=== PATIENT | female | born 1945 | race Caucasian/White ===

== ENCOUNTER → 2018-05-31 13:38 | Outpatient (CLI) | payer MEDICARE, SELFPAY ==
--- NOTE | 2018-05-31 | DI.MG.S_ITS ---
BILATERAL DIGITAL SCREENING MAMMOGRAM 3D/2D WITH CAD: 05/31/2018 CLINICAL: Routine screening. Comparison is made to exams dated: 06/09/2016 mammogram - [facility], 01/29/2014 mammogram, and 10/30/2012 mammogram - [facility]. The tissue of both breasts is heterogeneously dense. This may lower the sensitivity of mammography. Current study was also evaluated with a Computer Aided Detection (CAD) system. No significant masses, calcifications, or other findings are seen in either breast. There has been no significant interval change. IMPRESSION: NEGATIVE There is no mammographic evidence of malignancy. A 1 year screening mammogram is recommended. This exam was interpreted at Station ID: [id number]. NOTE: For mammograms, a report in lay terms will be sent to the patient. Approximately 15% of breast malignancies will not be visualized mammographically. In the management of a palpable breast mass, a negative mammogram must not discourage biopsy of a clinically suspicious lesion. Electronically Signed By: Breonna palmer/kaylyn:05/31/2018 15:06:32 letter sent: Normal Exam ACR BI-RADS Category 1: Negative [id number]
[2018-05-31 15:59] LABS: Vitamin B12 745 pg/mL (239-931)
[2018-05-31 16:10] LABS: Vitamin D 25 Hydroxy (D3) 37.1 ng/mL (30.0-100.0)
== END ==
PROVIDERS: Psychiatry & Neurology Psychiatry; PCP Nurse Practitioner; Visit Provider Nurse Practitioner
DX: Z12.31 Encounter for screening mammogram for malignant neoplasm of breast (principal); F41.1 Generalized anxiety disorder
CPT/HCPCS: 36415; 77063; 77067; 82306; 82607

== ENCOUNTER → 2019-06-27 11:37 | Outpatient (CLI) | payer MEDICARE, SELFPAY ==
--- NOTE | 2019-06-27 | DI.MG.S_ITS ---
BILATERAL DIGITAL SCREENING MAMMOGRAM 3D/2D WITH CAD: 06/27/2019 CLINICAL: Routine screening. Comparison is made to exams dated: 05/31/2018 mammogram, 06/09/2016 mammogram - [facility], 01/29/2014 mammogram, and 10/30/2012 mammogram - [facility]. The tissue of both breasts is heterogeneously dense. This may lower the sensitivity of mammography. Current study was also evaluated with a Computer Aided Detection (CAD) system. No significant masses, calcifications, or other findings are seen in either breast. There has been no significant interval change. IMPRESSION: NEGATIVE There is no mammographic evidence of malignancy. A 1 year screening mammogram is recommended. This exam was interpreted at Station ID: [id number]. NOTE: For mammograms, a report in lay terms will be sent to the patient. Approximately 15% of breast malignancies will not be visualized mammographically. In the management of a palpable breast mass, a negative mammogram must not discourage biopsy of a clinically suspicious lesion. Electronically Signed By: Tye marquez/kaylyn:06/27/2019 12:25:46 letter sent: Normal Exam ACR BI-RADS Category 1: Negative 3341F
== END ==
PROVIDERS: PCP Nurse Practitioner; Visit Provider Nurse Practitioner
DX: Z12.31 Encounter for screening mammogram for malignant neoplasm of breast (principal)
CPT/HCPCS: 77063; 77067

== ENCOUNTER → 2019-07-21 10:34 | Outpatient (CLI) | payer MEDICARE, SELFPAY ==
[2019-07-21 12:26] LABS: Add Manual Diff / Slide Review NO; Basophils Absolute Auto 0 /uL (0-100); Basophils Percent Auto 0.4 % (0-2); Eosinophils Absolute Auto 0 /uL (0-450); Hematocrit 41.3 % (36-46); Hemoglobin 13.8 g/dL (12.0-16.0); Lymphocytes Absolute Auto 1100 /uL (1100-4500); Lymphocytes Percent Auto 39.8 % (25-40); Mean Corpuscular HGB Conc 33.4 % (30-36); Mean Corpuscular Hemoglobin 30.2 PG (26-34); Mean Corpuscular Volume 90.4 fL (80-100); Monocytes Absolute Auto 300 /uL (0-900); Monocytes Percent Auto 9.9 % (3-14); Neutrophils Absolute Auto 1400 /uL (1500-7000); Neutrophils Percent Auto 48.9 % (50-75); Platelet Count 235 X10^3/uL (150-400); Red Blood Cell Count 4.57 X10^6/uL (4.0-5.2); Red Cell Distribution Width 12.9 % (11.6-14.8); White Blood Cell Count 2.9 X10^3/uL (4.5-11.0)
[2019-07-21 12:37] LABS: Alanine Aminotransferase 17 IU/L (9-52); Albumin 4.5 g/dL (3.5-5.0); Albumin Globulin Ratio 1.3 (1.0-2.8); Alkaline Phosphatase 68 U/L (38-126); Aspartate Aminotransferase 38 IU/L (14-36); Bilirubin Total 0.9 mg/dL (0.2-1.3); Bilirubin Unconjugated 0.8 mg/dL (0.0-1.1); Blood Urea Nitrogen 12 mg/dL (7-17); Calcium 9.5 mg/dL (8.4-10.2); Carbon Dioxide 32 mmol/L (22-32); Chloride 101 mmol/L (98-107); Cholesterol 216 mg/dL (140-199); Estimated Glomerular Filt Rate > 60.0 mL/min (>60); Globulin 3.6 g/dL (1.7-4.1); Glucose 82 mg/dL (80-110); HDL Cholesterol 74 mg/dL (40-60); HEMOLYSIS < 15 (0-50); LDL Cholesterol Calculated 132 mg/dL (<100); Sodium 141 mmol/L (137-145); Total Protein 8.1 g/dL (6.3-8.2); Triglycerides 49 mg/dL (35-150)
[2019-07-21 14:09] LABS: Thyroid Stimulating Hormone 2.64 uIU/mL (0.47-4.68)
[2019-07-21 15:41] LABS: Vitamin D 25 Hydroxy (D3) 49.9 ng/mL (30.0-100.0)
[2019-07-21 16:34] LABS: Hep C Virus Ab w/Reflex Quant NEGATIVE s/c (NEGATIVE)
== END ==
PROVIDERS: Family Provider Nurse Practitioner; PCP Nurse Practitioner; Visit Provider Psychiatry & Neurology Psychiatry
DX: Z11.59 Encounter for screening for other viral diseases (principal); F32.9 Major depressive disorder, single episode, unspecified; F41.1 Generalized anxiety disorder; F90.0 Attention-deficit hyperactivity disorder, predominantly inattentive type
CPT/HCPCS: 80053; 80061; 80076; 82306; 84439; 84443; 85025; 86803

== ENCOUNTER 2019-07-31 16:45 | Outpatient (RCR) | payer MEDICARE, SELFPAY ==
--- NOTE | 2019-07-22 17:22 | PT.OIE ---
Current Diagnoses Pain in thoracic spine (07/22/19) Dorsalgia, unspecified (07/22/19) Other abnormalities of gait and mobility (07/22/19) Weakness (07/22/19) Other reduced mobility (07/22/19) Past Medical History (Last Updated 07/16/19 @ 08:59 by WALTER Mckoen) Acute respiratory failure with hypoxia (Acute) Cataract (Acute) Chronic headaches (Acute) Empyema (Acute) Exudative pleural effusion (Acute) Family history of psychiatric disorder (Acute) Fecal incontinence (Acute) Hemorrhoids (Acute) History of neutropenia (Acute) History of osteomyelitis as a child (Acute) History of osteopenia (Acute) History of sepsis (Acute) Hypothyroidism (Acute) Intermittent low back pain (Acute) Thyroid nodule (Acute) Tinnitus (Acute) Urinary incontinence (Acute) Past Surgical History (Last Updated 07/16/19 @ 08:59 by WALTER Mckeon) History of hemorrhoidectomy (Acute) Visit Care Team Role Provider Type WALTER Mckeon Attending Provider Advanced Supervising Floorperson Family Provider Primary Care Provider Specialty: [facility] Address: [address] [place] [address] Email: [email or web address] Physical Therapy Initial Evaluation PT-OP-A Visit Information Start: 07/22/19 16:48 Freq: Status: Active Protocol: Document 07/22/19 14:30 DCW (Rec: 07/22/19 17:04 DC [id number]) Out-Patient Physical Therapy Visit Information Visit Information Visit Type Initial Evaluation Visit Start Time 14:30 Visit Stop Time 15:15 Total Visit Minutes 45 Visit Number 1 Number of STORE GROCERY MERCHANDISER Visits 0 Evaluation Information Evaluation Date 07/22/19 PT-OP-B Current Condition Start: 07/22/19 16:48 Freq: Status: Active Protocol: Document 07/22/19 14:30 DCW (Rec: 07/22/19 17:04 DCW [id number]) Current Condition History of Current Condition Onset Date 2 years Current Complaints generalized weakness, back pain, fear of falling History of Current Condition Pt is a 73 year old female presenting with a tangential two year history of back pain, weakness, and imbalance/fear of falling. Pt was hospitalized two years ago for a 10 day stay with a diagnosis of sepsis secondary to exudative pleural effusions due to empyema strep intermidium/angiosus. Pt feels like she has had weakness and imbalance ever since. Pt also has a history of low back pain, and suffers from Seasonal Affective Disorder, due to both the changes in weather during this time of year, and a traumatic personal history, with the loss of her parents and her in August. Pt reports her pain and imbalance makes it difficult to take her dogs for walks on the beach, mainly due to a fear of falling. Pt also struggles to lift 15 pound bags of tricia litter. 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 PT-OP-C Subjective Start: 07/22/19 16:48 Freq: Status: Active Protocol: Document 07/22/19 14:30 DCW (Rec: 07/22/19 17:04 DCW [id number]) Patient Questionnaires Oswestry Low Back Index Oswestry Score 24% Oswestry Impairment 20 to 39% Impaired (Score 20- 39) OP-PT Pain Assessment Pain Assessment Grid Paper Pain Assessment Grid Completed Yes Location Right Lower Back Intensity 4 Scale Used Numeric (1 - 10) PT-OP-D Balance Start: 07/22/19 16:48 Freq: Status: Active Protocol: Document 07/22/19 14:30 DCW (Rec: 07/22/19 17:04 DCW [id number]) OP-PT Balance Assessment Sitting Balance Static Sitting Balance Ability Normal Dynamic Sitting Balance Ability Normal Standing Balance Static Standing Balance Ability Normal Dynamic Standing Balance Ability Good Ochoa Fall Scale Copyright Permission PT-OP-E Functional Tests Start: 07/22/19 17:04 Freq: Status: Active Protocol: Document 07/22/19 14:30 DCW (Rec: 07/22/19 17:22 DCW [id number]) Functional Tests Dynamic Gait Index (DGI) Score 21/24 DGI Impairment Rating 1 to <20% Impaired (Score 20- 23) PT-OP-F Manual Assessment Start: 07/22/19 16:48 Freq: Status: Active Protocol: Document 07/22/19 14:30 DCW (Rec: 07/22/19 17:22 DCW [id number]) Manual Assessments Soft Tissue Assessment Soft Tissue Mobility Assessment Severe tone along right paraspinals and QL, Tenderness level 1/4: Complaint of pain Joint Mobility Assessment Joint Mobility Assessment T/L vertebrae mobility WNL PT-OP-K Range of Motion Start: 07/22/19 16:48 Freq: Status: Active Protocol: Document 07/22/19 14:30 DCW (Rec: 07/22/19 17:22 [facility] [id number]) Lumbar Spine Range of Motion Lumbar Spine Active Testing Position Standing Comments ROM WNL PT-OP-M Strength Start: 07/22/19 16:48 Freq: Status: Active Protocol: Document 07/22/19 14:30 DCW (Rec: 07/22/19 17:22 DC [id number]) Trunk Strength Trunk Manual Muscle Testing Core Stabilization Good core contraction initially, has some difficulty maintaining contraction during SLR; MMT 4/5 Hip Strength Hip Manual Muscle Testing Right Flexion (L2) 5 Normal Abduction 5 Normal Adduction 5 Normal External Rotation 5 Normal Internal Rotation 5 Normal Left Flexion (L2) 5 Normal Abduction 5 Normal Adduction 5 Normal External Rotation 5 Normal Internal Rotation 5 Normal PT-OP-Q Treatments Start: 07/22/19 16:48 Freq: Status: Active Protocol: Document 07/22/19 14:30 DCW (Rec: 07/22/19 17:22 DC [id number]) Therapeutic Exercises Supine Exercises PPT /c SLR Supine Exercise Name PPT /c TrA contraction - Alternating SLR PPT /c Marching Supine Exercise Name PPT /c TrA contraction - Marching PPT /c TrA Supine Exercise Name PPT /c TrA contraction PT-OP-T Assessment and Plan Start: 07/22/19 16:48 Freq: Status: Active Protocol: Document 07/22/19 14:30 DCW (Rec: 07/22/19 17:22 [facility] [id number]) Physical Therapy Assessment Rehab Potential Rehabilitation Potential Good Evaluation Complexity Number of Personal Factors/Comorbidities 3 or More Number of Body Systems Impaired 3 Clinical Presentation at Evaluation Evolving Impairments Impairments Activity Tolerance,Pain,Soft Tissue Mobility,Strength,Tone Other Concerns Fall Risk No, per DGI Barriers to Rehabilitation ADD, Anxiety, Depression/SAD, Hard of Hearing, Incontinence Goals Three Impairment Pt unable to lift 15# bag of cat litter due to increased back pain Snf Goal (LTG) Pt to demonstrate ability to lift 15# bag with proper body mechanics and no complaints of increased back pain LTG Duration 09/21/19 Two Impairment Pt unable to walk dogs on beach without instability and fear of falling Cast Iron Dipper Goal (LTG) Pt to report improved confidence walking dogs on beach with no increased fear of falling by improving dynamic stability. LTG Duration 09/21/19 One Impairment Pt does not have an appropriate home exercise program Short Term Goal (STG) Pt to be independent and compliant with an appropriate HEP STG Duration 08/21/19 Assessment Summary Assessment Pt presents with signs and symptoms consistent with mild generalized weakness and deconditioning. Pt's biggest limiting factors appear to be a fear of falling, which she admits prevents her from doing a lot of things she would typically be doing to improve her strength and stability. Per her DGI, her Dynamic balance is certainly WNL (), and she has no notable LE strength or mobility deficiencies. Pt does have increased tone along her paraspinals, R>L, and struggles maintaining a proper TrA contraction for an extended time, which may be the cause of her lifting difficulty/pain. Pt's therapy may be limited by her depression, anxiety, and ADD, as well as her history of incontinence. Pt should benefit from skilled therapy focusing on core strengthening , balance training to improve confidence, and STM to decrease lumbar musculature tone. Physical Therapy Plan Frequency and Duration Frequency of Treatment 2x/Week Duration of Treatment 10 weeks Plan of Care Start Date 07/22/19 Plan of Care End Date 09/30/19 Therapeutic Interventions Therapeutic Interventions Aquatic Therapy,Balance Training,Manual Therapy, Patient/Caregiver Education, Self-Care/Home Management,Soft Tissue Mobilization, Therapeutic Activities, Therapeutic Exercises Modalities Cold Pack/Ice Massage,Electric Stimulation,Hot Packs Next Visit Focus/Plan Next Note Type Treatment Note Next Visit Plan Lumbar STM, core strengthening , balance training
--- NOTE | 2019-07-25 15:17 | PT.OTN ---
Current Diagnoses Pain in thoracic spine (07/25/19) Dorsalgia, unspecified (07/25/19) Other abnormalities of gait and mobility (07/25/19) Weakness (07/25/19) Other reduced mobility (07/25/19) Physical Therapy Treatment Note PT-OP-A Visit Information Start: 07/22/19 16:48 Freq: Status: Active Protocol: Document 07/25/19 14:40 DCW (Rec: 07/25/19 15:15 DCW [id number]) Out-Patient Physical Therapy Visit Information Visit Information Visit Type Treatment Note Visit Note Arrived 10 minutes late Visit Start Time 14:40 Visit Stop Time 15:15 Total Visit Minutes 35 Visit Number 2 Number of FOLDER STITCHER OPERATOR Visits 0 Evaluation Information Evaluation Date 07/22/19 PT-OP-B Current Condition Start: 07/22/19 16:48 Freq: Status: Active Protocol: Document 07/22/19 14:30 DCW (Rec: 07/22/19 17:04 DCW [id number]) Current Condition History of Current Condition Onset Date 2 years Current Complaints generalized weakness, back pain, fear of falling History of Current Condition Pt is a 73 year old female presenting with a tangential two year history of back pain, weakness, and imbalance/fear of falling. Pt was hospitalized two years ago for a 10 day stay with a diagnosis of sepsis secondary to exudative pleural effusions due to empyema strep intermidium/angiosus. Pt feels like she has had weakness and imbalance ever since. Pt also has a history of low back pain, and suffers from Seasonal Affective Disorder, due to both the changes in weather during this time of year, and a traumatic personal history, with the loss of her parents and her in August. Pt reports her pain and imbalance makes it difficult to take her dogs for walks on the beach, mainly due to a fear of falling. Pt also struggles to lift 15 pound bags of tricia litter. 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 PT-OP-C Subjective Start: 07/22/19 16:48 Freq: Status: Active Protocol: Document 07/25/19 14:40 DCW (Rec: 07/25/19 15:15 DCW [id number]) OP-PT Subjective Patient Comments Patient Comments I realized that I forgot to mention something to you last time. I've found that if I bend down to pick something up , or reach down to a low shelf at the store, I have a real hard time tring to get back up . PT-OP-D Balance Start: 07/22/19 16:48 Freq: Status: Active Protocol: Document 07/22/19 14:30 DCW (Rec: 07/22/19 17:04 DCW [id number]) OP-PT Balance Assessment Sitting Balance Static Sitting Balance Ability Normal Dynamic Sitting Balance Ability Normal Standing Balance Static Standing Balance Ability Normal Dynamic Standing Balance Ability Good Ochoa Fall Scale Copyright Permission PT-OP-E Functional Tests Start: 07/22/19 17:04 Freq: Status: Active Protocol: Document 07/22/19 14:30 DCW (Rec: 07/22/19 17:22 DCW [id number]) Functional Tests Dynamic Gait Index (DGI) Score 2124 DGI Impairment Rating 1 to <20% Impaired (Score 20- 23) PT-OP-F Manual Assessment Start: 07/22/19 16:48 Freq: Status: Active Protocol: Document 07/22/19 14:30 DCW (Rec: 07/22/19 17:22 DCW [id number]) Manual Assessments Soft Tissue Assessment Soft Tissue Mobility Assessment Severe tone along right paraspinals and QL, Tenderness level 1/4: Complaint of pain Joint Mobility Assessment Joint Mobility Assessment T/L vertebrae mobility WNL PT-OP-K Range of Motion Start: 07/22/19 16:48 Freq: Status: Active Protocol: Document 07/22/19 14:30 DCW (Rec: 07/22/19 17:22 DCW [id number]) Lumbar Spine Range of Motion Lumbar Spine Active Testing Position Standing Comments ROM WNL PT-OP-M Strength Start: 07/22/19 16:48 Freq: Status: Active Protocol: Document 07/22/19 14:30 DCW (Rec: 07/22/19 17:22 DCW [id number]) Trunk Strength Trunk Manual Muscle Testing Core Stabilization Good core contraction initially, has some difficulty maintaining contraction during SLR; MMT 4/5 Hip Strength Hip Manual Muscle Testing Right Flexion (L2) 5 Normal Abduction 5 Normal Adduction 5 Normal External Rotation 5 Normal Internal Rotation 5 Normal Left Flexion (L2) 5 Normal Abduction 5 Normal Adduction 5 Normal External Rotation 5 Normal Internal Rotation 5 Normal PT-OP-Q Treatments Start: 07/22/19 16:48 Freq: Status: Active Protocol: Document 07/25/19 14:40 DCW (Rec: 07/25/19 15:15 DCW [id number]) Cardio Equipment Recumbent Elliptical (Biodex) Duration (Minutes) 4 Resistance 4 Seat Position 6 Gym Equipment Shuttle Recovery Unilateral Squats Resistance 50# Shuttle Recovery Platform Stable Bilateral Squats Resistance 87# Shuttle Recovery Platform Stable Shuttle Balance Red Details Wide LV, Staggered Stance Therapeutic Exercises Other Exercises Resisted Ambulation Other Exercise Name Side-stepping, Fwd, Bkwd Resistance Yellow Equipment Used T-band PT-OP-T Assessment and Plan Start: 07/22/19 16:48 Freq: Status: Active Protocol: Document 07/25/19 14:40 DCW (Rec: 07/25/19 15:17 DCW [id number]) Physical Therapy Assessment Impairments Impairments Activity Tolerance,Pain,Soft Tissue Mobility,Strength,Tone Goals Three Impairment Pt unable to lift 15# bag of cat litter due to increased back pain Snf Goal (LTG) Pt to demonstrate ability to lift 15# bag with proper body mechanics and no complaints of increased back pain LTG Duration 09/21/19 Two Impairment Pt unable to walk dogs on beach without instability and fear of falling Switch Box Installer Goal (LTG) Pt to report improved confidence walking dogs on beach with no increased fear of falling by improving dynamic stability. LTG Duration 09/21/19 One Impairment Pt does not have an appropriate home exercise program Short Term Goal (STG) Pt to be independent and compliant with an appropriate HEP STG Duration 08/21/19 Assessment Summary Assessment Pt tolerated all treatment well today. Pt was able to acclimate to the Shuttle Balance very quickly, having much less trouble with a staggered stance than what is expected. Physical Therapy Plan Frequency and Duration Frequency of Treatment 2x/Week Duration of Treatment 10 weeks Plan of Care Start Date 07/22/19 Plan of Care End Date 09/30/19 Therapeutic Interventions Therapeutic Interventions Aquatic Therapy,Balance Training,Manual Therapy, Patient/Caregiver Education, Self-Care/Home Management,Soft Tissue Mobilization, Therapeutic Activities, Therapeutic Exercises Modalities Cold Pack/Ice Massage,Electric Stimulation,Hot Packs Next Visit Focus/Plan Next Note Type Treatment Note Next Visit Plan Lumbar STM, core strengthening , balance training
--- NOTE | 2019-07-29 18:52 | PT.OTN ---
Current Diagnoses Pain in thoracic spine (07/29/19) Dorsalgia, unspecified (07/29/19) Other abnormalities of gait and mobility (07/29/19) Weakness (07/29/19) Other reduced mobility (07/29/19) Physical Therapy Treatment Note PT-OP-A Visit Information Start: 07/22/19 16:48 Freq: Status: Active Protocol: Document 07/29/19 16:47 HH (Rec: 07/29/19 18:52 HH [id number]) Out-Patient Physical Therapy Visit Information Visit Information Visit Type Treatment Note Visit Start Time 16:47 Visit Stop Time 15:30 Total Visit Minutes 43 Visit Number 3 Number of LOGGING TRUCK DRIVER Visits 0 PT-OP-B Current Condition Start: 07/22/19 16:48 Freq: Status: Active Protocol: Document 07/22/19 14:30 DCW (Rec: 07/22/19 17:04 DCW [id number]) Current Condition History of Current Condition Onset Date 2 years Current Complaints generalized weakness, back pain, fear of falling History of Current Condition Pt is a 73 year old female presenting with a tangential two year history of back pain, weakness, and imbalance/fear of falling. Pt was hospitalized two years ago for a 10 day stay with a diagnosis of sepsis secondary to exudative pleural effusions due to empyema strep intermidium/angiosus. Pt feels like she has had weakness and imbalance ever since. Pt also has a history of low back pain, and suffers from Seasonal Affective Disorder, due to both the changes in weather during this time of year, and a traumatic personal history, with the loss of her parents and her in August. Pt reports her pain and imbalance makes it difficult to take her dogs for walks on the beach, mainly due to a fear of falling. Pt also struggles to lift 15 pound bags of tricia litter. 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 PT-OP-C Subjective Start: 07/22/19 16:48 Freq: Status: Active Protocol: Document 07/29/19 16:47 HH (Rec: 07/29/19 18:52 HH [id number]) OP-PT Subjective Patient Comments Patient Comments Getting in and out of the car tends to be hard for my back. PT-OP-D Balance Start: 07/22/19 16:48 Freq: Status: Active Protocol: Document 07/22/19 14:30 DCW (Rec: 07/22/19 17:04 DCW [id number]) OP-PT Balance Assessment Sitting Balance Static Sitting Balance Ability Normal Dynamic Sitting Balance Ability Normal Standing Balance Static Standing Balance Ability Normal Dynamic Standing Balance Ability Good Ochoa Fall Scale Copyright Permission PT-OP-E Functional Tests Start: 07/22/19 17:04 Freq: Status: Active Protocol: Document 07/22/19 14:30 DCW (Rec: 07/22/19 17:22 DCW [id number]) Functional Tests Dynamic Gait Index (DGI) Score DGI Impairment Rating 1 to <20% Impaired (Score 20- 23) PT-OP-F Manual Assessment Start: 07/22/19 16:48 Freq: Status: Active Protocol: Document 07/22/19 14:30 DCW (Rec: 07/22/19 17:22 DCW [id number]) Manual Assessments Soft Tissue Assessment Soft Tissue Mobility Assessment Severe tone along right paraspinals and QL, Tenderness level 1/4: Complaint of pain Joint Mobility Assessment Joint Mobility Assessment T/L vertebrae mobility WNL PT-OP-K Range of Motion Start: 07/22/19 16:48 Freq: Status: Active Protocol: Document 07/22/19 14:30 DCW (Rec: 07/22/19 17:22 DCW [id number]) Lumbar Spine Range of Motion Lumbar Spine Active Testing Position Standing Comments ROM WNL PT-OP-M Strength Start: 07/22/19 16:48 Freq: Status: Active Protocol: Document 07/22/19 14:30 DCW (Rec: 07/22/19 17:22 DCW [id number]) Trunk Strength Trunk Manual Muscle Testing Core Stabilization Good core contraction initially, has some difficulty maintaining contraction during SLR; MMT 4/5 Hip Strength Hip Manual Muscle Testing Right Flexion (L2) 5 Normal Abduction 5 Normal Adduction 5 Normal External Rotation 5 Normal Internal Rotation 5 Normal Left Flexion (L2) 5 Normal Abduction 5 Normal Adduction 5 Normal External Rotation 5 Normal Internal Rotation 5 Normal PT-OP-Q Treatments Start: 07/22/19 16:48 Freq: Status: Active Protocol: Document 07/29/19 16:47 (Rec: 07/29/19 18:52 [id number]) Cardio Equipment Recumbent Stepper (Sci-Fit) Duration (Minutes) 5 Gym Equipment Shuttle Recovery Unilateral Squats Resistance 75# Shuttle Recovery Platform Stable Bilateral Squats Resistance 100 and 112 Shuttle Recovery Platform Stable Reps/Time 100 12x 2sets, 112 10x 2sets Therapeutic Exercises Sitting Exercises mauritian ball roll Side bilateral Equipment Used mauritian ball roll Reps/Minutes 8 mins Comments foward and diagonal Standing Exercises sit to stand (chair touch) Standing Exercise Name chair touch Equipment Used from adj table Reps/Minutes 8 x3 Comments cues on hip hinge Neuro Re-Education Treatment Balance Activities single leg stance Reps/Duration 5 secs x 4 hurdles Details step over pattern Surface ground level Equipment next to //bar Reps/Duration 10 mins Comments cues on feet clearance pt tends to get fatigue in every 2 rounds PT-OP-T Assessment and Plan Start: 07/22/19 16:48 Freq: Status: Active Protocol: Document 07/29/19 16:47 (Rec: 07/29/19 18:52 [id number]) Physical Therapy Assessment Goals Three Impairment Pt unable to lift 15# bag of cat litter due to increased back pain Livestock Farmers Goal (LTG) Pt to demonstrate ability to lift 15# bag with proper body mechanics and no complaints of increased back pain LTG Duration 09/21/19 Two Impairment Pt unable to walk dogs on beach without instability and fear of falling [facility] Goal (LTG) Pt to report improved confidence walking dogs on beach with no increased fear of falling by improving dynamic stability. LTG Duration 09/21/19 One Impairment Pt does not have an appropriate home exercise program Short Term Goal (STG) Pt to be independent and compliant with an appropriate HEP STG Duration 08/21/19 Assessment Summary Assessment Pt william all tx well today. She tends to fatigue faster during hurdles and SLS. She also has difficulty using hip hinge for sit to stand. Physical Therapy Plan Next Visit Focus/Plan Next Note Type Treatment Note Next Visit Plan Lumbar STM, core strengthening , balance training
--- NOTE | 2019-08-01 08:12 | PT.OTN ---
Current Diagnoses Pain in thoracic spine (07/31/19) Dorsalgia, unspecified (07/31/19) Other abnormalities of gait and mobility (07/31/19) Weakness (07/31/19) Other reduced mobility (07/31/19) Physical Therapy Treatment Note PT-OP-A Visit Information Start: 07/22/19 16:48 Freq: Status: Active Protocol: Document 07/31/19 16:50 HH (Rec: 08/01/19 08:12 [email or web address]) Out-Patient Physical Therapy Visit Information Visit Information Visit Type Treatment Note Visit Start Time 16:50 Visit Stop Time 17:30 Total Visit Minutes 40 Visit Number 4 Number of CARROT BUNCHER Visits 0 PT-OP-B Current Condition Start: 07/22/19 16:48 Freq: Status: Active Protocol: Document 07/22/19 14:30 DCW (Rec: 07/22/19 17:04 DCW [id number]) Current Condition History of Current Condition Onset Date 2 years Current Complaints generalized weakness, back pain, fear of falling History of Current Condition Pt is a 73 year old female presenting with a tangential two year history of back pain, weakness, and imbalance/fear of falling. Pt was hospitalized two years ago for a 10 day stay with a diagnosis of sepsis secondary to exudative pleural effusions due to empyema strep intermidium/angiosus. Pt feels like she has had weakness and imbalance ever since. Pt also has a history of low back pain, and suffers from Seasonal Affective Disorder, due to both the changes in weather during this time of year, and a traumatic personal history, with the loss of her parents and her in August. Pt reports her pain and imbalance makes it difficult to take her dogs for walks on the beach, mainly due to a fear of falling. Pt also struggles to lift 15 pound bags of tricia litter. 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 PT-OP-C Subjective Start: 07/22/19 16:48 Freq: Status: Active Protocol: Document 07/31/19 16:50 HH (Rec: 08/01/19 08:12 HH [email or web address]) OP-PT Subjective Patient Comments Patient Comments My back got little sore doing back stretches with the [place] ball but i feel pretty of what we did last time. I do have difficulty getting up from low surface PT-OP-D Balance Start: 07/22/19 16:48 Freq: Status: Active Protocol: Document 07/22/19 14:30 DCW (Rec: 07/22/19 17:04 DCW [id number]) OP-PT Balance Assessment Sitting Balance Static Sitting Balance Ability Normal Dynamic Sitting Balance Ability Normal Standing Balance Static Standing Balance Ability Normal Dynamic Standing Balance Ability Good Ochoa Fall Scale Copyright Permission PT-OP-E Functional Tests Start: 07/22/19 17:04 Freq: Status: Active Protocol: Document 07/22/19 14:30 DCW (Rec: 07/22/19 17:22 DCW [id number]) Functional Tests Dynamic Gait Index (DGI) Score DGI Impairment Rating 1 to <20% Impaired (Score 20- 23) PT-OP-F Manual Assessment Start: 07/22/19 16:48 Freq: Status: Active Protocol: Document 07/22/19 14:30 DCW (Rec: 07/22/19 17:22 DCW [id number]) Manual Assessments Soft Tissue Assessment Soft Tissue Mobility Assessment Severe tone along right paraspinals and QL, Tenderness level 1/4: Complaint of pain Joint Mobility Assessment Joint Mobility Assessment T/L vertebrae mobility WNL PT-OP-K Range of Motion Start: 07/22/19 16:48 Freq: Status: Active Protocol: Document 07/22/19 14:30 DCW (Rec: 07/22/19 17:22 DCW [id number]) Lumbar Spine Range of Motion Lumbar Spine Active Testing Position Standing Comments ROM WNL PT-OP-M Strength Start: 07/22/19 16:48 Freq: Status: Active Protocol: Document 07/22/19 14:30 DCW (Rec: 07/22/19 17:22 DCW [id number]) Trunk Strength Trunk Manual Muscle Testing Core Stabilization Good core contraction initially, has some difficulty maintaining contraction during SLR; MMT 4/5 Hip Strength Hip Manual Muscle Testing Right Flexion (L2) 5 Normal Abduction 5 Normal Adduction 5 Normal External Rotation 5 Normal Internal Rotation 5 Normal Left Flexion (L2) 5 Normal Abduction 5 Normal Adduction 5 Normal External Rotation 5 Normal Internal Rotation 5 Normal PT-OP-Q Treatments Start: 07/22/19 16:48 Freq: Status: Active Protocol: Document 07/31/19 16:50 HH (Rec: 08/01/19 08:12 [email or web address]) Cardio Equipment Recumbent Stepper (Sci-Fit) Duration (Minutes) 6 Resistance 4 Gym Equipment Shuttle Recovery Unilateral Squats Resistance 75# Shuttle Recovery Platform Stable Bilateral Squats Resistance 100 and 112 Shuttle Recovery Platform Stable Reps/Time 100 12x 2sets, 112 10x 2sets Shuttle Balance blue Details narrow LV, staggered stance Reps/Duration 5 mins Comments with perturbations by therapist at the platform Red Details Wide LV, Staggered Stance Reps/Duration 5 mins Neuro Re-Education Treatment Balance Activities single leg stance Details cone tap on table Equipment cones Comments single leg stance with reaching across midline hurdles Details step over pattern Surface ground level Equipment next to //bar Reps/Duration 12 mins Comments cues on feet clearance pt tends to get fatigue in every 2 rounds PT-OP-T Assessment and Plan Start: 07/22/19 16:48 Freq: Status: Active Protocol: Document 07/31/19 16:50 HH (Rec: 08/01/19 08:12 [email or web address]) Physical Therapy Assessment Goals Three Impairment Pt unable to lift 15# bag of cat litter due to increased back pain Fpc Goal (LTG) Pt to demonstrate ability to lift 15# bag with proper body mechanics and no complaints of increased back pain LTG Duration 09/21/19 Two Impairment Pt unable to walk dogs on beach without instability and fear of falling Wool Fleece Sorter Goal (LTG) Pt to report improved confidence walking dogs on beach with no increased fear of falling by improving dynamic stability. LTG Duration 09/21/19 One Impairment Pt does not have an appropriate home exercise program Short Term Goal (STG) Pt to be independent and compliant with an appropriate HEP STG Duration 08/21/19 Assessment Summary Assessment Pt tends to her single leg balance performance with goal oriented exercise (cone tapping with one leg.). Physical Therapy Plan Next Visit Focus/Plan Next Note Type Treatment Note Next Visit Plan Lumbar STM, core strengthening , balance training
--- NOTE | 2019-08-05 18:23 | PT-IP ANOTE ---
Pt no show for appointment. Attempted to reach out to pt via phone call but unsuccessful.
--- NOTE | 2019-10-28 10:16 | PT.OPDS ---
Current Diagnoses Pain in thoracic spine (07/31/19) Dorsalgia, unspecified (07/31/19) Other abnormalities of gait and mobility (07/31/19) Weakness (07/31/19) Other reduced mobility (07/31/19) Visit Care Team Role Provider Type WALTER Mckeon Attending Provider Advanced Cardiovascular Radiologic Technologist Family Provider Primary Care Provider Specialty: [facility] Practice Address: [address] [place] [address], [facility] Email: [email or web address] Visit Number Visit Number 4 Discharge Summary PT-OP-B Current Condition Start: 07/22/19 16:48 Freq: Status: Active Protocol: Document 07/22/19 14:30 DCW (Rec: 07/22/19 17:04 DCW [id number]) Current Condition History of Current Condition Onset Date 2 years Current Complaints generalized weakness, back pain, fear of falling History of Current Condition Pt is a 73 year old female presenting with a tangential two year history of back pain, weakness, and imbalance/fear of falling. Pt was hospitalized two years ago for a 10 day stay with a diagnosis of sepsis secondary to exudative pleural effusions due to empyema strep intermidium/angiosus. Pt feels like she has had weakness and imbalance ever since. Pt also has a history of low back pain, and suffers from Seasonal Affective Disorder, due to both the changes in weather during this time of year, and a traumatic personal history, with the loss of her parents and her in August. Pt reports her pain and imbalance makes it difficult to take her dogs for walks on the beach, mainly due to a fear of falling. Pt also struggles to lift 15 pound bags of tricia litter. 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 PT-OP-C Subjective Start: 07/22/19 16:48 Freq: Status: Active Protocol: Document 07/31/19 16:50 HH (Rec: 08/01/19 08:12 HH [email or web address]) OP-PT Subjective Patient Comments Patient Comments My back got little sore doing back stretches with the [place] citizen ball but i feel pretty of what we did last time. I do have difficulty getting up from low surface PT-OP-D Balance Start: 07/22/19 16:48 Freq: Status: Active Protocol: Document 07/22/19 14:30 DCW (Rec: 07/22/19 17:04 DCW [id number]) OP-PT Balance Assessment Sitting Balance Static Sitting Balance Ability Normal Dynamic Sitting Balance Ability Normal Standing Balance Static Standing Balance Ability Normal Dynamic Standing Balance Ability Good Ochoa Fall Scale Copyright Permission PT-OP-E Functional Tests Start: 07/22/19 17:04 Freq: Status: Active Protocol: Document 07/22/19 14:30 DCW (Rec: 07/22/19 17:22 DCW [id number]) Functional Tests Dynamic Gait Index (DGI) Score DGI Impairment Rating 1 to <20% Impaired (Score 20- 23) PT-OP-F Manual Assessment Start: 07/22/19 16:48 Freq: Status: Active Protocol: Document 07/22/19 14:30 DCW (Rec: 07/22/19 17:22 DCW [id number]) Manual Assessments Soft Tissue Assessment Soft Tissue Mobility Assessment Severe tone along right paraspinals and QL, Tenderness level 1/4: Complaint of pain Joint Mobility Assessment Joint Mobility Assessment T/L vertebrae mobility WNL PT-OP-K Range of Motion Start: 07/22/19 16:48 Freq: Status: Active Protocol: Document 07/22/19 14:30 DCW (Rec: 07/22/19 17:22 DCW [id number]) Lumbar Spine Range of Motion Lumbar Spine Active Testing Position Standing Comments ROM WNL PT-OP-M Strength Start: 07/22/19 16:48 Freq: Status: Active Protocol: Document 07/22/19 14:30 DCW (Rec: 07/22/19 17:22 DCW [id number]) Trunk Strength Trunk Manual Muscle Testing Core Stabilization Good core contraction initially, has some difficulty maintaining contraction during SLR; MMT 4/5 Hip Strength Hip Manual Muscle Testing Right Flexion (L2) 5 Normal Abduction 5 Normal Adduction 5 Normal External Rotation 5 Normal Internal Rotation 5 Normal Left Flexion (L2) 5 Normal Abduction 5 Normal Adduction 5 Normal External Rotation 5 Normal Internal Rotation 5 Normal PT-OP-T Assessment and Plan Start: 07/22/19 16:48 Freq: Status: Active Protocol: Document 10/28/19 10:15 DCW (Rec: 10/28/19 10:16 DCW [id number]) Physical Therapy Assessment Goals Three Impairment Pt unable to lift 15# bag of cat litter due to increased back pain Shelter Goal (LTG) Pt to demonstrate ability to lift 15# bag with proper body mechanics and no complaints of increased back pain LTG Duration 09/21/19 Two Impairment Pt unable to walk dogs on beach without instability and fear of falling Home School Liaison Officer Goal (LTG) Pt to report improved confidence walking dogs on beach with no increased fear of falling by improving dynamic stability. LTG Duration 09/21/19 One Impairment Pt does not have an appropriate home exercise program Short Term Goal (STG) Pt to be independent and compliant with an appropriate HEP STG Duration 08/21/19 Assessment Summary Assessment Pt has not been seen in nearly three months, and is now scheduled for a new PT evaluation for a separate medical issue. Pt will be discharged at this time. Physical Therapy Plan Frequency and Duration Frequency of Treatment 2x/Week Duration of Treatment 10 weeks Plan of Care Start Date 07/22/19 Plan of Care End Date 09/30/19 Therapeutic Interventions Therapeutic Interventions Aquatic Therapy,Balance Training,Manual Therapy, Patient/Caregiver Education, Self-Care/Home Management,Soft Tissue Mobilization, Therapeutic Activities, Therapeutic Exercises Modalities Cold Pack/Ice Massage,Electric Stimulation,Hot Packs Discharge Physical Therapy Discharge Reasons No Longer Attending PT Next Visit Focus/Plan Next Note Type Discharge Summary
== END 2019-07-31 17:45 ==
LOC: PHYS 16:45
PROVIDERS: Family Provider Nurse Practitioner; PCP Nurse Practitioner; Visit Provider Nurse Practitioner
DX: M54.9 Dorsalgia, unspecified (principal); M54.6 Pain in thoracic spine; R53.1 Weakness; R26.89 Other abnormalities of gait and mobility; Z74.09 Other reduced mobility
CPT/HCPCS: 97110; 97112; 97162

== ENCOUNTER → 2020-06-18 19:26 | Outpatient (ROUT) | payer MEDICARE, SELFPAY ==
[2020-06-18 19:50] LABS: HEMOLYSIS < 15 (0-50); Potassium 4.2 mmol/L (3.4-5.1)
== END ==
PROVIDERS: PCP Nurse Practitioner; Visit Provider Internal Medicine
DX: E87.6 Hypokalemia (principal)
CPT/HCPCS: 84132

== ENCOUNTER 2022-01-04 15:08 | Emergency (ER) | payer MEDICARE, OTHER, SELFPAY ==
[2022-01-04 15:16] VITALS: BP 113/64; PULSE 87; RESP 18; TEMP 36.4; O2SAT 100; BMI 22.8
--- NOTE | 2022-01-04 15:30 | DI.US.S_ITS ---
PROCEDURE: US PERIPH VENOUS LOW EXTREM RT INDICATIONS: RIGHT LOWER LEG PAIN, SWELLING, REDNESS TECHNIQUE: Real-time imaging, as well as color and pulse Doppler interrogation, were performed of the lower extremity deep veins from the inguinal ligament to the popliteal fossa. COMPARISON: None. FINDINGS: The common femoral, femoral and popliteal veins are normally compressible, and free of intraluminal thrombus. Color and pulse Doppler demonstrate normal phasic intraluminal flow. There is normal augmentation response to distal compression maneuver. IMPRESSION: No evidence of deep venous thrombosis, right lower extremity Approved by: Nikita Sherman M.D. on 01/04/2022 at 15:26
[2022-01-04] MEDS: IBUPROFEN 400 MG TABLET 600 MG PO (16:58)
[2022-01-04] MEDS: ALPRAZolam 0.5 MG TABLET PO (16:58)
[2022-01-04] MEDS: DOXYCYCLINE HYCLATE 100 MG TABLET PO (16:58)
[2022-01-04 17:03] VITALS: PULSE 89; RESP 18; O2SAT 97
--- NOTE | 2022-01-04 19:08 | ED_ITS ---
HPI - Extremity Problem <WALTER Boothe - Last Filed: 01/04/22 19:22> General Chief complaint: Extremity Problem,Nontraumatic Stated complaint: swollen/painful/hot right leg, sent by [facility] Time Seen by Provider: 01/04/22 16:15 Mode of arrival: Wheelchair History of Present Illness HPI Narrative: This is a 76-year-old female of ADHD, anxiety, major depressive disorder, osteopenia who presents to the emergency department with concern for blood clot in her right lower extremity. Patient states that for 5 days she has had tenderness and swelling on the medial aspect of her right lower leg which is getting worse. She denies any fever, illness, difficulty ambulating, history of blood clots, anticoagulant use, recent trauma, any known trauma, and states she is able to ambulate on it. She denies any history of skin infections, she denies any calf pain, denies any diabetes, denies any animal bites or scratches. Patient endorses she has 2 cats and a dog and lives with her son who also has pets. Patient would like an ultrasound to rule out a blood clot. Related Data Home Medications Medication Instructions Recorded Confirmed cholecalciferol (vitamin D3) 125 5,000 unit PO DAILY 11/05/19 12/30/21 mcg (5,000 unit) capsule mecobalamin (vitamin B12) 5,000 5,000 mcg PO DAILY tab 11/05/19 12/30/21 mcg disintegrating tablet pyridoxine (vitamin B6) 250 mg 250 mg PO DAILY 11/05/19 12/30/21 tablet Previous Rx's Medication Instructions Recorded alprazolam 0.5 mg tablet 0.5 mg PO BID PRN #60 tab MDD 1MG 11/18/21 gabapentin 100 mg capsule 100 mg PO .COMPLEX #150 tab 12/16/21 mirtazapine 7.5 mg tablet 7.5 mg PO BEDTIME #30 tab 12/30/21 dextroamphetamine-amphetamine 10 See Rx Instructions PO BID #75 tab 01/02/22 mg tablet (Adderall) doxycycline hyclate 100 mg tablet 100 mg PO BID 7 Days #14 tab 01/04/22 Allergies Allergy/AdvReac Type Severity Reaction Status Date / Time No Known Drug Allergies Allergy Verified 01/04/22 16:44 Review of Systems <WALTER Boothe - Last Filed: 01/04/22 19:22> Review of Systems Narrative: General: denies fever, chills, malaise, sweats, fatigue Head/Neck: denies headache, neck pain, dizziness Eyes: denies visual changes, eye pain Cardio: denies chest pain, palpitations, edema Respiratory: denies dyspnea, cough, orthopnea GI: denies abdominal pain, nausea, vomiting, or diarrhea : denies dysuria, hematuria, urinary retention, frequency or incontinence MSK: denies joint pain, muscle weakness Skin: denies rash, itching, and tenderness to the medial aspect of her right lower extremity Neuro: denies numbness, tingling Patient History <WALTER Boothe - Last Filed: 01/04/22 19:22> Medical History Acute respiratory failure with hypoxia Cataract Chronic headaches Empyema Exudative pleural effusion Family history of psychiatric disorder Fecal incontinence Hemorrhoids History of neutropenia History of osteomyelitis as a child History of osteopenia History of sepsis Hypothyroidism Intermittent low back pain Thyroid nodule Tinnitus Urinary incontinence Surgical History History of hemorrhoidectomy Family History Father Alzheimers disease Mother COPD (chronic obstructive pulmonary disease) Sister Mental health problem Grandmother Mental health problem Social History marital status: number of children: 1 household members: children pets and animals: Yes (3/dogs, 4/cats, 2/turtles) education level: master's degree occupational status: employed [employer]: [employer] travel history: other leisure activities: other seatbelt use: always water heater temp set < 120 deg: Yes working smoke detector in home: Yes fire extinguisher in home: Yes carbon monox detector in home: Yes firearms in home: No do you feel safe at home: No (When I leave home in different locations.) Smoking Status: Never smoker alcohol intake: current substance use type: amphetamines and prescription drug during the past year weight has: remained stable well-balanced diet: about half the time daily servings fruits/ve-4 caffeine: Yes (Rare/ 2 per month (soda), caffeine 2+ drinks per day) eating out: other Type(s) of exercise: walking frequency: other duration: 15-30 minutes/day additional social history: Lives by the [place] and nafisa dogs when feeling well. Smoking Status: Never smoker Substance Use Type: does not use Exam <WALTER Boothe - Last Filed: 01/04/22 19:22> Initial Vital Signs Initial Vital Signs: Vital Signs Temperature 97.6 F 01/04/22 15:16 Pulse Rate 87 01/04/22 15:16 Respiratory Rate 18 01/04/22 15:16 Blood Pressure 113/64 01/04/22 15:16 Pulse Oximetry 100 01/04/22 15:16 <Marcy West DO - Last Filed: 01/05/22 07:03> Initial Vital Signs Initial Vital Signs: Vital Signs Temperature 97.6 F 01/04/22 15:16 Pulse Rate 87 01/04/22 15:16 Respiratory Rate 18 01/04/22 15:16 Blood Pressure 113/64 01/04/22 15:16 Pulse Oximetry 100 01/04/22 15:16 Course <WALTER Boothe - Last Filed: 01/04/22 19:22> Orders Ordered: Discontinued Medications Alprazolam (Alprazolam 0.5 Mg Tablet) 0.5 mg PO NOW ONE Stop: 01/04/22 16:41 Last Admin: 01/04/22 16:58 Dose: 0.5 mg Documented by: ARLEEN Doxycycline Hyclate (Doxycycline Hyclate 100 Mg Tablet) 100 mg PO NOW ONE Stop: 01/04/22 16:41 Last Admin: 01/04/22 16:58 Dose: 100 mg Documented by: ARLEEN Ibuprofen (Ibuprofen 400 Mg Tablet) 600 mg PO NOW ONE Stop: 01/04/22 16:41 Last Admin: 01/04/22 16:58 Dose: 600 mg Documented by: ARLEEN Vital Signs Vital signs: Vital Signs - 8 hr 01/04/22 15:16 01/04/22 17:03 Temperature 97.6 F Pulse Rate 87 89 Respiratory Rate 18 18 Blood Pressure 113/64 Pulse Oximetry 100 97 <Marcy West DO - Last Filed: 01/05/22 07:03> Orders Ordered: Discontinued Medications Alprazolam (Alprazolam 0.5 Mg Tablet) 0.5 mg PO NOW ONE Stop: 01/04/22 16:41 Last Admin: 01/04/22 16:58 Dose: 0.5 mg Documented by: ARLEEN Doxycycline Hyclate (Doxycycline Hyclate 100 Mg Tablet) 100 mg PO NOW ONE Stop: 01/04/22 16:41 Last Admin: 01/04/22 16:58 Dose: 100 mg Documented by: ARLEEN Ibuprofen (Ibuprofen 400 Mg Tablet) 600 mg PO NOW ONE Stop: 01/04/22 16:41 Last Admin: 01/04/22 16:58 Dose: 600 mg Documented by: ARLEEN Vital Signs Vital signs: Vital Signs - 8 hr 01/04/22 15:16 01/04/22 17:03 Temperature 97.6 F Pulse Rate 87 89 Respiratory Rate 18 18 Blood Pressure 113/64 Pulse Oximetry 100 97 MDM - Extremity (Nontraumatic) <WALTER Boothe - Last Filed: 01/04/22 19:22> Imaging Data US - DVT: Radiologist's Impression: PROCEDURE:? US PERIPH VENOUS LOW EXTREM RT ? INDICATIONS:? RIGHT LOWER LEG PAIN, SWELLING, REDNESS ? TECHNIQUE:? Real-time imaging, as well as color and pulse Doppler interrogation, were performed of the lower extremity deep veins from the inguinal ligament to the popliteal fossa.? ? COMPARISON:? None. ? FINDINGS:? The common femoral, femoral and popliteal veins are normally compressible, and free of intraluminal thrombus.? Color and pulse Doppler demonstrate normal phasic intraluminal flow.? There is normal augmentation response to distal compression maneuver. ? ? IMPRESSION:? No evidence of deep venous thrombosis, right lower extremity ? ? ? Approved by: Nikita Sherman M.D. on 01/04/2022 at 15:26? [facility] Narrative Medical decision making narrative: 76-year-old female with history of ADHD, depression, anxiety, presents to the emergency department for right lower extremity swelling, pain, and erythema for the last 5 days and has been worsening. On exam, there is an approximate 3 in x 4 in area on the medial to distal aspect of her right lower extremity with erythema, edema, and dependent edema into her ankle which is 1+ and nonpitting. It appears like cellulitis, is tender, warm. Ultrasound DVT of her right lower extremity shows no evidence of DVT, femoral, popliteal veins are normally compressible. There is no fluctuance, induration, or open wound. There is no streaking but there is surrounding erythema. This appears most like cellulitis although could be an abscess. Patient was given doxycycline and alprazolam as she was quite anxious during her visit today. She will continue doxycycline for the next 10 days and follow up with her primary care provider Dr. Peck on 01/14/2022. This is a new patient visit for her. Patient does not have any history of skin infections, she has been afebrile, she denies any nausea, vomiting, chills, or sweats. Patient is appropriate and amenable to discharge home. Vital signs are stable on repeat examination is unremarkable. Patient has been informed of results. Patient has been given strict return to ER precautions for any new or worsening symptoms. Patient understands to follow up closely with outpatient providers as instructed. Patient understands plan and agrees to discharge home. All questions and concerns answered at this time. Discharge Plan Departure Patient Disposition: Home Clinical Impression: Cellulitis Qualifiers: Site of cellulitis: extremity Site of cellulitis of extremity: lower extremity Laterality: right Qualified Code(s): L03.115 - Cellulitis of right lower limb Instructions: DI for Cellulitis -- Adult Activity Restrictions/Additional Instructions: *You have been diagnosed with cellulitis of your right lower leg. Please take your antibiotics as prescribed and have this area looked at by your primary care provider or another provider within the next 10 days. You can use cool compresses, ibuprofen, and Tylenol as needed for pain please follow-up with your primary care provider. If this gets any worse, you develop a high fever, it streaking up past her knee, please return to the emergency department for another evaluation. Thank you for trusting us with your care I hope that you feel better soon. *What to do: *Please continue to take your regular medications as directed. [x ] New medication prescriptions sent to your pharmacy: [[facility] ] [ ] New medication written as a paper prescription [ ] No new medications given *Please follow up with your primary care provider in 2-3 days, call for an appointment. Let them know you were seen in the Emergency Department and that we ask that you be seen in follow up. We will electronically transmit a record of today's note if your PCP is in our system *If you do not have a primary care provider please contact the [facility] Resource line at [phone]. They will ask some questions about your medical history and help get you set up with a doctor in the community. *Return to Emergency Department if you should have any new, worsening or concerning symptoms, such as [fever greater than 101F, chills, worsening pain, persistent vomiting or other bothersome symptoms] Prescriptions: New doxycycline hyclate 100 mg tablet 100 mg PO BID 7 Days Qty: 14 0RF No Action cholecalciferol (vitamin D3) 5,000 unit capsule 5,000 unit PO DAILY 0RF pyridoxine (vitamin B6) 250 mg tablet 250 mg PO DAILY 0RF mecobalamin (vitamin B12) 5,000 mcg tablet,disintegrating 5,000 mcg PO DAILY 0RF mirtazapine 7.5 mg tablet 7.5 mg PO BEDTIME Qty: 30 1RF alprazolam 0.5 mg tablet 0.5 mg PO BID MDD 1MG PRN (Reason: anxiety) Qty: 60 2RF gabapentin 100 mg capsule 100 mg PO .COMPLEX Qty: 150 3RF Rx Instructions: 200 mg PO AM, 300mg PO QHS; dextroamphetamine-amphetamine [Adderall] 10 mg tablet See Rx Instructions PO BID Qty: 75 0RF Rx Instructions: 15mg (1.5 tabs) QAM and 10mg (1 tab) QPM PO Referrals: Tiera Luna ARNP [Primary Care Provider] - Jim Peck MD [Physician] - 10-14 days (at your upcoming appointment ) <Marcy West DO - Last Filed: 01/05/22 07:03> Cosign ED Attending Binature Attestation: I was immediately available in the department for consultation. Documentation has been reviewed. I agree with assessment and plan.
== END 2022-01-04 17:04 | disposition home or self-care (01) ==
PROVIDERS: Emergency Provider Nurse Practitioner Critical Care Medicine; PCP Nurse Practitioner
DX: L03.115 Cellulitis of right lower limb (principal)
CPT/HCPCS: 93971; 99283

== ENCOUNTER → 2022-01-11 15:45 | Outpatient (CLI) | payer MEDICARE, OTHER, SELFPAY ==
[2022-01-11 16:30] LABS: Add Manual Diff / Slide Review NO; Basophils Absolute Auto 0 /uL (0-100); Basophils Percent Auto 0.4 % (0-2); Eosinophils Absolute Auto 0 /uL (0-450); Eosinophils Percent Auto 0.6 % (2-4); Hematocrit 35.7 % (36-46); Hemoglobin 11.8 g/dL (12.0-16.0); Lymphocytes Absolute Auto 1600 /uL (1100-4500); Lymphocytes Percent Auto 28.4 % (25-40); Mean Corpuscular HGB Conc 33.2 % (30-36); Mean Corpuscular Hemoglobin 27.5 PG (26-34); Monocytes Absolute Auto 500 /uL (0-900); Monocytes Percent Auto 8.2 % (3-14); Neutrophils Absolute Auto 3600 /uL (1500-7000); Neutrophils Percent Auto 62.4 % (50-75); Platelet Count 327 X10^3/uL (150-400); Red Cell Distribution Width 14.6 % (11.6-14.8); White Blood Cell Count 5.7 X10^3/uL (4.5-11.0)
[2022-01-11 16:56] LABS: Alanine Aminotransferase 21 IU/L (<35); Albumin 4.4 g/dL (3.5-5.0); Albumin Globulin Ratio 1.2 (1.0-2.8); Alkaline Phosphatase 80 U/L (38-126); Aspartate Aminotransferase 35 IU/L (14-36); BUN Creatinine Ratio 30.8 (6-22); Bilirubin Total 0.3 mg/dL (0.2-1.3); Blood Urea Nitrogen 20 mg/dL (7-17); C-Reactive Protein Quant < 0.5 mg/dL (<1.0); Calcium 9.4 mg/dL (8.4-10.2); Carbon Dioxide 32 mmol/L (22-32); Chloride 102 mmol/L (98-107); Estimated Glomerular Filt Rate > 60.0 mL/min (>60); Globulin 3.6 g/dL (1.7-4.1); Glucose 116 mg/dL (80-110); HEMOLYSIS < 15 (0-50); Potassium 3.9 mmol/L (3.4-5.1); Sodium 141 mmol/L (137-145)
[2022-01-11 17:10] LABS: Free T3, Triiodothyronine Free 2.73 pg/mL (2.77-5.27); Free T4, Direct Thyroxine 1.23 ng/dL (0.78-2.19)
[2022-01-11 17:24] LABS: Thyroid Stimulating Hormone 1.45 uIU/mL (0.47-4.68)
[2022-01-11 17:41] LABS: Erythrocyte Sedimentation Rate 25 MM/HR (0-20)
== END ==
PROVIDERS: PCP Nurse Practitioner; Referring Provider Nurse Practitioner; Visit Provider Nurse Practitioner
DX: E03.9 Hypothyroidism, unspecified (principal); F32.9 Major depressive disorder, single episode, unspecified; F41.1 Generalized anxiety disorder; R79.82 Elevated C-reactive protein (CRP)
CPT/HCPCS: 36415; 80053; 84439; 84443; 84481; 85025; 85651; 86140

== ENCOUNTER → 2023-05-15 14:09 | Outpatient (CLI) | payer MEDICARE, OTHER, SELFPAY ==
--- NOTE | 2023-05-15 14:16 | DI.RAD.S_ITS ---
PROCEDURE: XR ABDOMEN MIN 2V INDICATIONS: abdominal pain, weight loss TECHNIQUE: 2 views of the abdomen were acquired. COMPARISON: None. FINDINGS: Surgical changes and devices: None. Bowel: No pneumoperitoneum. The bowel gas pattern is nonspecific. Moderate amount of stool in the transverse, low left and sigmoid colon. Soft tissues: No masses; visualized solid organ contours appear normal in size. No suspicious abdominal calcifications. Bones: No suspicious bony abnormalities. IMPRESSION: Nonspecific bowel gas pattern. If patient's symptoms persist or worsen, then repeat plain radiographs or CT scan is warranted for further evaluation. Moderate colonic fecal loading. Dictated by: Karen Norton MD, PhD on 05/15/2023 at 15:27 Approved by: Karen Norton MD, PhD on 05/15/2023 at 15:27
--- NOTE | 2023-05-15 14:16 | DI.RAD.S_ITS ---
PROCEDURE: XR CHEST 2V INDICATIONS: weight loss TECHNIQUE: 2 views of the chest were acquired. COMPARISON: None. FINDINGS: Surgical changes and devices: None. Lungs and pleura: Lungs are clear. No pleural effusions or pneumothorax. Mediastinum: Mediastinal contours are normal. Heart size is normal. Bones and chest wall: No suspicious bony abnormalities. Soft tissues appear unremarkable. IMPRESSION: No acute cardiopulmonary disease process. Dictated by: Karen Norton MD, PhD on 05/15/2023 at 15:27 Approved by: Karen Norton MD, PhD on 05/15/2023 at 15:27
[2023-05-15 15:11] LABS: Add Manual Diff / Slide Review NO; Basophils Absolute Auto 0 /uL (0-100); Basophils Percent Auto 0.4 % (0-2); Eosinophils Absolute Auto 0 /uL (0-450); Eosinophils Percent Auto 0.5 % (2-4); Hematocrit 31.7 % (36-46); Hemoglobin 10.1 g/dL (12.0-16.0); Lymphocytes Absolute Auto 1300 /uL (1100-4500); Lymphocytes Percent Auto 18.6 % (25-40); Mean Corpuscular Hemoglobin 24.2 PG (26-34); Mean Corpuscular Volume 75.7 fL (80-100); Monocytes Absolute Auto 600 /uL (0-900); Monocytes Percent Auto 7.7 % (3-14); Neutrophils Absolute Auto 5200 /uL (1500-7000); Neutrophils Percent Auto 72.8 % (50-75); Platelet Count 491 X10^3/uL (150-400); Red Blood Cell Count 4.18 X10^6/uL (4.0-5.2); Red Cell Distribution Width 15.7 % (11.6-14.8); White Blood Cell Count 7.1 X10^3/uL (4.5-11.0)
[2023-05-15 15:27] LABS: Erythrocyte Sedimentation Rate 42 MM/HR (0-20)
[2023-05-15 15:30] LABS: Alanine Aminotransferase 19 IU/L (<35); Albumin 3.9 g/dL (3.5-5.0); Albumin Globulin Ratio 1.1 (1.0-2.8); Alkaline Phosphatase 93 U/L (38-126); Aspartate Aminotransferase 26 IU/L (14-36); BUN Creatinine Ratio 19.3 (6-22); Bilirubin Total 0.3 mg/dL (0.2-1.3); Blood Urea Nitrogen 11 mg/dL (7-17); C-Reactive Protein Quant 2.8 mg/dL (<1.0); Carbon Dioxide 33 mmol/L (22-32); Chloride 98 mmol/L (98-107); Estimated Glomerular Filt Rate > 60 mL/min (>60); Globulin 3.7 g/dL (1.7-4.1); Glucose 136 mg/dL (80-110); HEMOLYSIS < 15 (0-50); Lipase 75 U/L (23-300); Potassium 4.1 mmol/L (3.4-5.1); Sodium 138 mmol/L (137-145); Total Protein 7.6 g/dL (6.3-8.2)
[2023-05-15 15:46] LABS: Free T4, Direct Thyroxine 1.09 ng/dL (0.78-2.19)
[2023-05-15 16:00] LABS: Thyroid Stimulating Hormone 1.49 uIU/mL (0.47-4.68)
[2023-05-15 16:32] LABS: Folate > 20.0 ng/mL (2.76-20.0); Vitamin B12 Reflex MMA if <400 510 pg/mL (239-931)
[2023-05-16 06:05] LABS: Labcorp Hemoglobin (Hb) A1c 5.9 % (4.8-5.6)
[2023-05-16 21:04] LABS: Deamidated Gliadin Ab IgA 3 units (0-19); Deamidated Gliadin Ab IgG 9 units (0-19); Immunoglobulin A,Qn 260 mg/dL (64-422); t-Transglutaminase IgA <2 U/mL (0-3)
[2023-05-18 17:49] LABS: HIV 1 & 2 Ab/Ag 4th Gen Combo NEGATIVE (NEGATIVE); Hep C Virus Ab w/Reflex Quant NEGATIVE s/c (NEGATIVE)
== END ==
PROVIDERS: PCP Registered Nurse Diabetes Educator; Referring Provider Registered Nurse Diabetes Educator; Visit Provider Registered Nurse Diabetes Educator
DX: R10.13 Epigastric pain (principal); R63.4 Abnormal weight loss; R41.3 Other amnesia
CPT/HCPCS: 71046; 74019; 80053; 82607; 82746; 82784; 83036; 83516; 83690; 84439; 84443; 85025; 85651; 86140; 86803; 87389

== ENCOUNTER → 2023-06-14 13:42 | Outpatient (CLI) | payer MEDICARE, OTHER, SELFPAY ==
[2023-06-14 14:29] LABS: Hematocrit 31.3 % (36-46); Mean Corpuscular HGB Conc 32.1 % (30-36); Mean Corpuscular Hemoglobin 23.7 PG (26-34); Mean Corpuscular Volume 73.8 fL (80-100); Platelet Count 447 X10^3/uL (150-400); Red Blood Cell Count 4.24 X10^6/uL (4.0-5.2); Red Cell Distribution Width 15.7 % (11.6-14.8); White Blood Cell Count 7.6 X10^3/uL (4.5-11.0)
[2023-06-14 14:53] LABS: Alanine Aminotransferase 15 IU/L (<35); Albumin 3.7 g/dL (3.5-5.0); Albumin Globulin Ratio 1.2 (1.0-2.8); Alkaline Phosphatase 85 U/L (38-126); Aspartate Aminotransferase 23 IU/L (14-36); BUN Creatinine Ratio 21.4 (6-22); Bilirubin Total 0.3 mg/dL (0.2-1.3); Blood Urea Nitrogen 12 mg/dL (7-17); Calcium 9.2 mg/dL (8.4-10.2); Carbon Dioxide 33 mmol/L (22-32); Chloride 96 mmol/L (98-107); Cholesterol 158 mg/dL (140-199); Estimated Glomerular Filt Rate > 60 mL/min (>60); Globulin 3.1 g/dL (1.7-4.1); Glucose 132 mg/dL (80-110); HDL Cholesterol 50 mg/dL (40-60); HEMOLYSIS < 15 (0-50); LDL Cholesterol Calculated 92 mg/dL (<100); Potassium 3.7 mmol/L (3.4-5.1); Sodium 136 mmol/L (137-145); Total Protein 6.8 g/dL (6.3-8.2); Triglycerides 80 mg/dL (35-150)
[2023-06-14 15:21] LABS: TSH w/ Reflex to FT4 1.93 uIU/mL (0.47-4.68)
[2023-06-14 15:26] LABS: Bilirubin Urine UA NEGATIVE (NEGATIVE); Color Urine UA YELLOW; Glucose Urine UA NEGATIVE (Negative); Ketones Urine UA NEGATIVE (NEGATIVE); Leukocyte Esterase Urine UA 1+ (NEGATIVE); Nitrite Urine UA POSITIVE (Negative); Occult Blood Urine UA TRACE-INTACT (Negative); Protein Urine UA NEGATIVE (Negative)
[2023-06-14 15:35] LABS: Appearance Urine UA CLOUDY
[2023-06-14 15:36] LABS: Bacteria Urine Many (>30); Culture Indicated Urine Specimen Cultured; RBC Urine 1-5/HPF (0-5/HPF); Squamous Epithelial Cell Urine 1-5 /HPF (0-5/HPF); WBC Urine 5-10/HPF (0-5/HPF)
[2023-06-15 19:27] LABS: Interpretation Positive (Negative)
== END ==
PROVIDERS: Internal Medicine; PCP Registered Nurse Diabetes Educator; Referring Provider Registered Nurse Diabetes Educator; Visit Provider Registered Nurse Diabetes Educator
DX: E04.1 Nontoxic single thyroid nodule (principal); E78.5 Hyperlipidemia, unspecified; R10.13 Epigastric pain; F33.2 Major depressive disorder, recurrent severe without psychotic features; F41.1 Generalized anxiety disorder; F90.9 Attention-deficit hyperactivity disorder, unspecified type; G89.29 Other chronic pain; R41.3 Other amnesia; R63.4 Abnormal weight loss
CPT/HCPCS: 36415; 80053; 80061; 81001; 83013; 84443; 85027; 87077; 87086; 87186; 99214

== ENCOUNTER → 2023-07-06 14:04 | Outpatient (CLI) | payer MEDICARE, OTHER, SELFPAY ==
[2023-07-06 15:28] LABS: Appearance Urine UA CLEAR; Bilirubin Urine UA 1+ (NEGATIVE); Color Urine UA YELLOW; Glucose Urine UA NEGATIVE (Negative); Ketones Urine UA TRACE (NEGATIVE); Leukocyte Esterase Urine UA TRACE (NEGATIVE); Nitrite Urine UA NEGATIVE (Negative); Occult Blood Urine UA NEGATIVE (Negative); Protein Urine UA 1+ (Negative); Specific Gravity Urine UA 1.025 (1.000-1.035)
[2023-07-06 15:43] LABS: Bacteria Urine Few (2-10); Culture Indicated Urine Specimen Cultured; Ictotest Urine Negative (Negative); RBC Urine None Seen (0-5/HPF); Squamous Epithelial Cell Urine 1-5 /HPF (0-5/HPF); WBC Urine 1-5/HPF (0-5/HPF)
== END ==
PROVIDERS: PCP Registered Nurse Diabetes Educator; Referring Provider Registered Nurse Diabetes Educator; Visit Provider Registered Nurse Diabetes Educator
DX: N39.0 Urinary tract infection, site not specified (principal)
CPT/HCPCS: 81001; 87086

== ENCOUNTER 2023-07-26 11:15 | Inpatient (IN) | payer MEDICARE, OTHER, SELFPAY ==
[2023-07-26] VITALS (20 sets, daily range): BP systolic 101–121; BP diastolic 42–70; PULSE 84–204; RESP 15–29; TEMP 36.5–38.1; O2SAT 83–97; BMI 20.7; BMI 20.5
--- NOTE | 2023-07-26 | DI.RAD.S_ITS ---
PROCEDURE: XR CHEST 1V INDICATIONS: ng tube placement TECHNIQUE: One view of the chest was acquired. COMPARISON: [facility], CR, XR CHEST 1V, 07/26/2023, 14:04. FINDINGS: Surgical changes and devices: NG tube crosses the GE junction with distal tip projecting over the mid stomach. Lungs and pleura: Right-sided pneumonia without significant change. Probable right basilar atelectasis. No pleural effusions or pneumothorax. Mediastinum: Mediastinal contours appear normal. Heart size is normal. Bones and chest wall: No suspicious bony lesions. Overlying soft tissues appear unremarkable. IMPRESSION: NG tube tip projects over the mid stomach. Dictated by: Karen Norton MD, PhD on 07/26/2023 at 16:00 Approved by: Karen Norton MD, PhD on 07/26/2023 at 16:00
--- NOTE | 2023-07-26 11:50 | DI.CT.S_ITS ---
PROCEDURE: CT ABDOMEN PELVIS W CON INDICATIONS: ABD DISTENSION, CONSTIPATION X1 WEEK TECHNIQUE: After the administration of intravenous contrast, axial sections acquired from the lung bases to the pubic symphysis. Coronal and sagittal reformats were performed. For radiation dose reduction, the following was used: automated exposure control, adjustment of mA and/or kV according to patient size. COMPARISON: [facility], CR, XR CHEST 2V, 05/15/2023, 14:55. FINDINGS: Image quality: Excellent. Lung bases: Patchy consolidation are seen throughout the included right lung and at the left lung base, suspicious for pneumonia. Small right and trace left pleural effusions. Heart: No significant findings. ABDOMEN: Liver: Unremarkable. Gallbladder: Unremarkable. Biliary ducts: Unremarkable. Pancreas: Unremarkable. Spleen: Unremarkable. Adrenal Glands: Unremarkable. Kidneys and Ureters: Unremarkable. Stomach and Bowel: The esophagus is mildly distended and filled with fluid. Diffusely dilated loops of small bowel are seen throughout the abdomen. Transition point is seen at the right lower quadrant where there is bowel wall thickening and hyperenhancement at the terminal ileum and cecal tip. Mild fecalization of bowel contents is noted. Moderate stool is seen in the colon. Peritoneum: No abnormal intraperitoneal fluid. No free air. Ventral Wall: No hernias. Abdominal Nodes: No retroperitoneal or mesenteric adenopathy by size criteria. Vessels: Aorta and inferior vena cava are normal in size. PELVIS: Pelvic Organs: Unremarkable. Bladder: Unremarkable. Pelvic Nodes: No enlarged lymph nodes. Miscellaneous: No hernias are seen. Bones: Age-indeterminate compression fracture of T11. IMPRESSION: 1. Diffusely dilated small bowel throughout the abdomen is consistent with small bowel obstruction. Transition point is seen at the ileocecal junction where there is a short segment of bowel wall thickening and hyperenhancement involving the surrounding ileum and cecal tip. No ascites or pneumoperitoneum. 2. Diffuse right sided pulmonary opacities and mild left lower lobe opacities are suspicious for pneumonia. Small right and trace left pleural effusions. Approved by: Balwinder Montiel M.D. on 07/26/2023 at 13:52
--- NOTE | 2023-07-26 11:50 | ED.ABDPAIN ---
HPI - Abdominal Pain General Chief Complaint: Abdominal Pain Stated Complaint: no BM T-7 Time Seen by Provider: 07/26/23 11:19 Source: patient Mode of arrival: Wheelchair History of Present Illness HPI narrative: 77-year-old female with history osteopenia, thyroid nodule, anxiety, depression presents by private vehicle from home for 1 week of constipation with abdominal distention. Family at bedside states that they have tried ?multiple? laxatives for the last 2 days, however she is begun to vomit and can not keep anything down. Per records patient was recently treated for H pylori infection and completed 2 weeks of antibiotics. Related Data Home Medications Medication Instructions Recorded Confirmed cholecalciferol (vitamin D3) 125 5,000 unit PO DAILY 11/05/19 07/26/23 mcg (5,000 unit) capsule mecobalamin (vitamin B12) 5,000 5,000 mcg PO DAILY 11/05/19 07/26/23 mcg disintegrating tablet pyridoxine (vitamin B6) 250 mg 250 mg PO DAILY 11/05/19 07/26/23 tablet Previous Rx's Medication Instructions Recorded alprazolam 0.5 mg tablet 0.5 mg PO BID PRN anxiety #60 tabs 02/27/23 dextroamphetamine-amphetamine 10 10 mg PO BID #60 tabs 06/27/23 mg tablet (Adderall) ondansetron HCl 4 mg tablet 4 mg PO Q8H PRN nausea and 07/03/23 vomiting #30 tabs Allergies Allergy/AdvReac Type Severity Reaction Status Date / Time atomoxetine Allergy Verified 07/26/23 11:26 Review of Systems Review of Systems Narrative: CONSTITUTIONAL- Denies: fever, chills, fatigue HEENT- Denies: sore throat, nosebleed, vision changes RESPIRATORY- Denies: shortness of breath, cough, wheezing CARDIAC- Denies: chest pain, edema, orthopnea GI-reports: Abdominal pain, abdominal distention, constipation, nausea, vomiting Denies: diarrhea - Denies: frequency, dysuria, hematuria, flank pain MSK- Denies: extremity pain, extremity swelling, joint pain, joint swelling SKIN- Denies: rash, itching, burn, swelling NEUROLOGICAL- Denies: headache, numbness, weakness, dizziness PSYCHIATRIC- Denies: anxiety, depression, suicidal ideation, homicidal ideation Patient History Medical History Acute respiratory failure with hypoxia Advanced directives, counseling/discussion Cataract Chronic headaches Empyema Exudative pleural effusion Family history of psychiatric disorder Fecal incontinence Hemorrhoids History of neutropenia History of osteomyelitis as a child History of osteopenia History of sepsis Medicare annual wellness visit, initial Osteopenia Thyroid nodule Tinnitus Urinary incontinence Surgical History History of hemorrhoidectomy Family History Father Alzheimers disease Mother COPD (chronic obstructive pulmonary disease) Sister Mental health problem Grandmother Mental health problem Social History marital status: details: She was in 1992 after her of prostate cancer. number of children: 1 household members: children pets and animals: Yes (3/dogs, 4/cats, 2/turtles) education level: master's degree occupational status: employed [employer]: [employer] travel history: other leisure activities: other seatbelt use: always water heater temp set < 120 deg: Yes working smoke detector in home: Yes fire extinguisher in home: Yes carbon monox detector in home: Yes firearms in home: No do you feel safe at home: No (When I leave home in different locations.) Smoking Status: Never smoker alcohol intake: current substance use type: amphetamines and prescription drug during the past year weight has: remained stable well-balanced diet: about half the time daily servings fruits/ve-4 caffeine: Yes (Rare/ 2 per month (soda), caffeine 2+ drinks per day) eating out: other Type(s) of exercise: walking frequency: other duration: 15-30 minutes/day additional social history: Lives by the [employer] walk and nafisa dogs when feeling well. Smoking Status: Never smoker alcohol intake frequency: holidays/special occasions only Substance Use Type: does not use Exam Initial Vital Signs Initial Vital Signs: Vital Signs Temperature 97.7 F 07/26/23 11:16 Pulse Rate 106 H 07/26/23 11:16 Respiratory Rate 15 07/26/23 11:16 Blood Pressure 102/58 L 07/26/23 11:16 Pulse Oximetry 94 07/26/23 11:16 Oxygen Delivery Method Room Air 07/26/23 11:16 Const: Awake, alert, no acute distress, frail Eyes: PERRL, EOMI, conjunctiva normal ENT: Atraumatic, dentition normal, mucous membranes moist Cardiac: regular rate, regular rhythm RESP: unlabored, clear bilaterally, no wheezing GI: Soft, distended, no significant reproducible tenderness to palpation MSK: Atraumatic, full range of motion, pulses equal Skin: Warm, Dry, intact, no rashes Neuro: AO x3, CN II-XII grossly intact, moves all extremities Psych: affect normal, mood normal, not suicidal, not homicidal Course Course Course Narrative: This is a frail but nontoxic appearing patient with 1 week of constipation. Patient's abdomen is distended and protuberant. Diffusely tender to palpation without rebound or guarding. Suspect other underlying pathology than just constipation. Labs and imaging to be ordered. Orders Ordered: ED Orders 07/26/23 11:49 EKG-12 Lead Stat 07/26/23 11:50 CT abdomen pelvis w con Stat 07/26/23 11:57 Complete Blood Count AUTO DIFF Stat Comprehensive Metabolic Panel Stat Lipase Stat Pathologist Review (for CBC) Stat 07/26/23 12:18 Ammonia (NH3) Stat 07/26/23 13:11 ABG [Arterial Blood Gas] Stat 07/26/23 14:01 Chest [XR chest 1V] Stat 07/26/23 14:35 Blood Culture Stat Acetaminophen (Acetaminophen 325 Mg Tablet) 650 mg PO Q6H PRN PRN Reason: Fever/Mild Pain (1-3) Hydromorphone HCl (Hydromorphone 0.5 Mg Inj) 0.5 mg IV Q3H PRN PRN Reason: Pain, Moderate (4-6) Sodium Chloride (Normal Saline 0.9%) 1,000 mls @ 1,000 mls/hr IV BOLUS PRN PRN Reason: Fluid replacement Ceftriaxone Sodium 1,000 mg/ (Sodium Chloride) 100 mls @ 200 mls/hr IV Q24H FLORENTIN Stop: 07/29/23 17:29 Azithromycin 500 mg/ Dextrose 250 mls @ 250 mls/hr IV Q24H FLORENTIN Stop: 07/28/23 15:46 Last Admin: 07/26/23 16:04 Dose: 250 mls/hr Documented By: ABBY Lorazepam (Lorazepam 2 Mg/Ml Inj) 0.5 mg IV Q6HR PRN PRN Reason: Anxiety Metoclopramide HCl (Metoclopramide 10 Mg/2 Ml Inj) 10 mg IV Q6HR PRN PRN Reason: Nausea And Vomiting Naloxone HCl (Naloxone 0.4 Mg/Ml Vial) 0.2 mg IV Q2MIN PRN PRN Reason: Opiate Reversal Ondansetron HCl (Ondansetron 4 Mg/2 Ml Inj) 4 mg IV Q4HR FLORENTIN Pantoprazole Sodium (Pantoprazole 40 Mg Vial) 40 mg IV BID FLORENTIN Sennosides (Sennosides 8.6 Mg Tablet) 17.2 mg PO NOW ONE Stop: 07/26/23 21:01 Discontinued Medications Furosemide (Furosemide 20 Mg/2 Ml Vial) 20 mg IV NOW ONE Stop: 07/26/23 15:48 Ceftriaxone Sodium 1,000 mg/ (Sodium Chloride) 100 mls @ 200 mls/hr IV NOW ONE Stop: 07/26/23 14:02 Last Infusion: 07/26/23 15:44 Dose: 0 mls/hr Documented By: Admin: 07/26/23 14:44 Dose: 200 mls/hr Documented By: RACHEAL Lactulose (Lactulose 20 Gm/30 Ml Solution) 20 gm PO NOW ONE Stop: 07/26/23 11:24 Last Admin: 07/26/23 12:17 Dose: Not Given Documented By: ABBY Metoclopramide HCl (Metoclopramide 10 Mg/2 Ml Inj) 10 mg IV NOW ONE Stop: 07/26/23 11:50 Last Admin: 07/26/23 14:45 Dose: Not Given Documented By: RACHEAL Morphine Sulfate (Morphine 4 Mg/Ml Inj) 4 mg IV NOW ONE Stop: 07/26/23 11:50 Last Admin: 07/26/23 14:45 Dose: Not Given Documented By: RACHEAL Polyethylene Glycol (Polyethylene Glycol 3350 17 Gm Powd.Pack) 17 gm PO NOW ONE Stop: 07/26/23 11:24 Last Admin: 07/26/23 12:18 Dose: Not Given Documented By: ABBY Reevaluation(s) Reevaluation #1: Laboratory work is reviewed, no gross abnormalities. Nursing reports that patient suddenly desaturated while she was in the exam room despite adequate +. Patient denies shortness of breath, cough, any respiratory complaints. Placed on 2 L nasal cannula and ABG ordered, which confirms hypoxia. Pending imaging Reevaluation #2: CT scan is significant for bilateral lower lobe pneumonia as well as small bowel obstruction. Patient and son at bedside are adamant that the patient has never had any intra-abdominal surgeries previously. I discussed the patient's case with surgeon on-call Dr. Babb, who stated that he would follow the patient while she was in the hospital and would follow her course. NG tube placed with copious gastric secretions suctioned. Chest x-ray ordered, broad-spectrum antibiotics ordered for coverage of pneumonia. Patient to be admitted for further treatment. Consultations Consultation #1: Dr. Babb - will follow patient's in-hospital course. Vital Signs Vital signs: Vital Signs - 8 hr 07/26/23 11:16 07/26/23 11:48 07/26/23 11:49 Temperature 97.7 F Pulse Rate 106 H 98 H Respiratory Rate 15 Blood Pressure 102/58 L 110/58 L Pulse Oximetry 94 Oxygen Delivery Method Room Air 07/26/23 11:49 07/26/23 12:00 07/26/23 12:14 Temperature Pulse Rate 105 H 104 H Respiratory Rate Blood Pressure 121/57 L Pulse Oximetry Oxygen Delivery Method 07/26/23 12:14 07/26/23 12:30 07/26/23 12:30 Temperature Pulse Rate 103 H 103 H Respiratory Rate Blood Pressure 114/59 L Pulse Oximetry 95 93 Oxygen Delivery Method 07/26/23 13:00 07/26/23 13:00 07/26/23 13:34 Temperature Pulse Rate 111 H Respiratory Rate 28 H Blood Pressure 104/70 108/57 L Pulse Oximetry 90 L Oxygen Delivery Method 07/26/23 13:34 07/26/23 14:00 07/26/23 14:00 Temperature Pulse Rate 94 H 111 H Respiratory Rate 25 H 26 H Blood Pressure 101/58 L Pulse Oximetry 89 L 93 Oxygen Delivery Method 07/26/23 14:43 07/26/23 14:54 07/26/23 14:54 Temperature Pulse Rate 204 H 113 H Respiratory Rate 28 H Blood Pressure 106/58 L Pulse Oximetry 94 Oxygen Delivery Method 07/26/23 15:00 07/26/23 15:00 Temperature Pulse Rate 100 H Respiratory Rate 29 H Blood Pressure 115/57 L Pulse Oximetry 86 L Oxygen Delivery Method MDM - Abdominal Pain Differential Diagnosis Differential diagnosis: Likely abdominal pain, acute appendicitis and calculus of kidney Condition is:: Improved Lab Data 07/26/23 11:57 07/26/23 11:57 Labs: Lab Results 07/26/23 07/26/23 07/26/23 Range/Units 11:57 11:57 12:18 WBC 10.3 (4.5-11.0) X10^3/uL RBC 4.75 (4.0-5.2) X10^6/uL Hgb 11.5 L (12.0-16.0) g/dL Hct 34.9 L (36-46) % MCV 73.4 L (80-100) fL MCH 24.1 L (26-34) PG MCHC 32.9 (30-36) % RDW 20.2 H (11.6-14.8) % Plt Count 404 H (150-400) X10^3/uL Neut % (Auto) Not Reportable Lymph % (Auto) Not Reportable [place] % (Auto) Not Reportable Eos % (Auto) Not Reportable Baso % (Auto) Not Reportable Lymph # (Auto) Not Reportable [place] # (Auto) Not Reportable Baso # (Auto) Not Reportable Total Counted 100 Seg Neutrophils % 45.0 (38-70) % Band Neutrophils % 30.0 H (3-7) % Lymphocytes % (Manual) 11.0 L (25-45) % Monocytes % (Manual) 9.0 (2-11) % Metamyelocytes % 5.0 H (-0) % Neutrophils # (Manual) 7725 H (6921-6162) /uL RBC Morphology Not Reportable Anisocytosis 1+ H ABG pH (7.35-7.45) ABG pCO2 (35-45) mmHg ABG pO2 (80-100) mmHg ABG HCO3 (23-27) mmol/L ABG Total CO2 (23-27) mmol/L ABG O2 Saturation (95-100) % ABG Base Excess (-2-3) mmol/L FiO2 Sodium 129 L (137-145) mmol/L Potassium 3.5 (3.4-5.1) mmol/L Chloride 79 L (98-107) mmol/L Carbon Dioxide 36 H (22-32) mmol/L BUN 25 H (7-17) mg/dL Creatinine 0.72 (0.52-1.04) mg/dL Estimated GFR > 60 (>60) mL/min BUN/Creatinine Ratio 34.7 H (6-22) Glucose 153 H (80-110) mg/dL Calcium 9.3 (8.4-10.2) mg/dL Magnesium (1.6-2.3) mg/dL Total Bilirubin 0.9 (0.2-1.3) mg/dL AST 37 H (14-36) IU/L ALT 19 (<35) IU/L Alkaline Phosphatase 57 (38-126) U/L Ammonia < 9 L (9-30) umol/L Total Protein 6.9 (6.3-8.2) g/dL Albumin 3.5 (3.5-5.0) g/dL Globulin 3.4 (1.7-4.1) g/dL Albumin/Globulin Ratio 1.0 (1.0-2.8) Lipase 17 L (23-300) U/L Procalcitonin (<0.5) ng/mL 07/26/23 07/26/23 07/26/23 Range/Units 12:18 12:18 13:11 WBC (4.5-11.0) X10^3/uL RBC (4.0-5.2) X10^6/uL Hgb (12.0-16.0) g/dL Hct (36-46) % MCV (80-100) fL MCH (26-34) PG MCHC (30-36) % RDW (11.6-14.8) % Plt Count (150-400) X10^3/uL Neut % (Auto) Lymph % (Auto) [place] % (Auto) Eos % (Auto) Baso % (Auto) Lymph # (Auto) [place] # (Auto) Baso # (Auto) Total Counted Seg Neutrophils % (38-70) % Band Neutrophils % (3-7) % Lymphocytes % (Manual) (25-45) % Monocytes % (Manual) (2-11) % Metamyelocytes % (-0) % Neutrophils # (Manual) (2344-9207) /uL RBC Morphology Anisocytosis ABG pH 7.60 H (7.35-7.45) ABG pCO2 44.2 (35-45) mmHg ABG pO2 53 L (80-100) mmHg ABG HCO3 43 H (23-27) mmol/L ABG Total CO2 44 H (23-27) mmol/L ABG O2 Saturation 92 L (95-100) % ABG Base Excess 21.0 H (-2-3) mmol/L FiO2 32 Sodium (137-145) mmol/L Potassium (3.4-5.1) mmol/L Chloride (98-107) mmol/L Carbon Dioxide (22-32) mmol/L BUN (7-17) mg/dL Creatinine (0.52-1.04) mg/dL Estimated GFR (>60) mL/min BUN/Creatinine Ratio (6-22) Glucose (80-110) mg/dL Calcium (8.4-10.2) mg/dL Magnesium 2.3 (1.6-2.3) mg/dL Total Bilirubin (0.2-1.3) mg/dL AST (14-36) IU/L ALT (<35) IU/L Alkaline Phosphatase (38-126) U/L Ammonia (9-30) umol/L Total Protein (6.3-8.2) g/dL Albumin (3.5-5.0) g/dL Globulin (1.7-4.1) g/dL Albumin/Globulin Ratio (1.0-2.8) Lipase (23-300) U/L Procalcitonin 3.25 H (<0.5) ng/mL Discharge Plan Departure Patient Disposition: Admitted As Inpatient Clinical Impression: Small bowel obstruction, Pneumonia, Acute hypoxemic respiratory failure Admit Date/Time: 07/26/23 15:13 Admit Provider: Mike Bhardwaj
[2023-07-26 12:16] LABS: Hematocrit 34.9 % (36-46); Hemoglobin 11.5 g/dL (12.0-16.0); Mean Corpuscular HGB Conc 32.9 % (30-36); Mean Corpuscular Hemoglobin 24.1 PG (26-34); Mean Corpuscular Volume 73.4 fL (80-100); Platelet Count 404 X10^3/uL (150-400); Red Blood Cell Count 4.75 X10^6/uL (4.0-5.2); Red Cell Distribution Width 20.2 % (11.6-14.8); White Blood Cell Count 10.3 X10^3/uL (4.5-11.0)
[2023-07-26 12:17] LABS: Add Manual Diff / Slide Review YES
--- NOTE | 2023-07-26 12:18 | PC.NURSE ---
spoke with provider about pt prior to administration of laxatives, verbal order to not give and change in medications given. spoke with patient about given antinausea and pain medications. pt declined at this time as she is not feeling either. informed provider of this
[2023-07-26 12:26] LABS: Albumin 3.5 g/dL (3.5-5.0); Alkaline Phosphatase 57 U/L (38-126); BUN Creatinine Ratio 34.7 (6-22); Bilirubin Total 0.9 mg/dL (0.2-1.3); Blood Urea Nitrogen 25 mg/dL (7-17); Calcium 9.3 mg/dL (8.4-10.2); Chloride 79 mmol/L (98-107); Estimated Glomerular Filt Rate > 60 mL/min (>60); Globulin 3.4 g/dL (1.7-4.1); Glucose 153 mg/dL (80-110); Lipase 17 U/L (23-300); Sodium 129 mmol/L (137-145); Total Protein 6.9 g/dL (6.3-8.2)
[2023-07-26 12:33] LABS: Ammonia (NH3) < 9 umol/L (9-30)
[2023-07-26 12:33] LABS: Carbon Dioxide 36 mmol/L (22-32)
[2023-07-26 12:46] LABS: Anisocytosis 1+; Neutrophils Absolute Manual 7725 /uL (3000-5900); Total Cells Counted 100
[2023-07-26 12:49] LABS: Alanine Aminotransferase 19 IU/L (<35); Aspartate Aminotransferase 37 IU/L (14-36); HEMOLYSIS 31 (0-50); Potassium 3.5 mmol/L (3.4-5.1)
--- NOTE | 2023-07-26 13:11 | PC.NURSE ---
nurse entered pt's room due to low O2 reading on monitor. adjusting finger probe did not change reading of mid 80s. warm blanket applied and NC placed on patient at 3L. pt instructed to deep breath in through nose and out through mouth. pt also instructed to move up in bed. pt struggled with simple task following. pt unable to verbalize her age or what month it was. informed provider of change in mentation, ABGs ordered
[2023-07-26 13:22] LABS: Fractionated Inspired Oxygen 32; HCO3 ABG 43 mmol/L (23-27); Oxygen Saturation ABG 92 % (95-100); PCO2 ABG 44.2 mmHg (35-45); PO2 ABG 53 mmHg (80-100); TCO2 ABG 44 mmol/L (23-27)
--- NOTE | 2023-07-26 14:01 | DI.RAD.S_ITS ---
PROCEDURE: XR CHEST 1V INDICATIONS: HYPOXIA TECHNIQUE: One view of the chest was acquired. COMPARISON: [facility], CR, XR CHEST 2V, 05/15/2023, 14:55. FINDINGS: Surgical changes and devices: None. Lungs and pleura: Trace right pleural effusion. Patchy airspace opacities in the right lung compatible with pneumonia. Streaky opacities in the left lung base which likely represent atelectasis. Mediastinum: Mediastinal contours appear normal. Heart size is normal. Bones and chest wall: No suspicious bony lesions. Overlying soft tissues appear unremarkable. IMPRESSION: Right-sided pneumonia and trace right pleural effusion. Dictated by: Karen Norton MD, PhD on 07/26/2023 at 15:19 Approved by: Karen Norton MD, PhD on 07/26/2023 at 15:20
[2023-07-26] MEDS: cefTRIAXone 1,000 MG in SODIUM CHLORIDE 0.9% 100 ML 200 MG IV ×2 (14:44→18:06)
[2023-07-26 15:36] LABS: Ictotest Urine Negative (Negative)
[2023-07-26 15:47] LABS: Bacteria Urine Occasional (0-1); Culture Indicated Urine Cult Not Indicated; Hyaline Casts Urine 0-1/LPF; RBC Urine 0-1/HPF (0-5/HPF); Squamous Epithelial Cell Urine 0-1 /HPF (0-5/HPF); WBC Urine 1-5/HPF (0-5/HPF)
[2023-07-26 15:57] LABS: Magnesium 2.3 mg/dL (1.6-2.3)
[2023-07-26] MEDS: AZITHROMYCIN 500 MG in DEXTROSE 5% IN WATER 250 ML 250 MG IV (16:04)
[2023-07-26 16:15] LABS: Procalcitonin 3.25 ng/mL (<0.5)
--- NOTE | 2023-07-26 16:53 | PC.NURSE ---
Patient admitted to room 214 with dx of SBO and [place]. She has an NG tube to low intermittant suction and has brown stool liquid in suction chamber. Patient is slightly confused and could not remember her sons name. She has not had a bowel movement for at least 5-7 days. Abdomen is firm,distended, but she denies nausea or pain. Patient has iv antibiotics infusing. She will be getting some lasix and protonix as well. She is being seen by the doctor at this time and Azythromycin is infusing. Patient is in a view room, as she can be confused.
--- NOTE | 2023-07-26 18:05 | PM.HP.1 ---
History of Present Illness History of Present Illness Date Patient Seen: 07/26/23 Time Patient Seen: 18:06 Chief complaint: no BM T-7 Narrative: Luis Manuel is a 77 year old woman who has no prior surgical history who presented to the emergency department today complaining of no bowel movements for the past 7 days. She has also had some nausea and vomiting. She reports that she has passed some flatus today. A CT scan was performed and showed a small-bowel obstruction with a most likely transition point in the terminal ileum or ileocecal valve. She was also found to have bilateral pleural effusions and likely pneumonia on CT. [facility] Medical History Acute respiratory failure with hypoxia Advanced directives, counseling/discussion Cataract Chronic headaches Empyema Exudative pleural effusion Family history of psychiatric disorder Fecal incontinence Hemorrhoids History of neutropenia History of osteomyelitis as a child History of osteopenia History of sepsis Medicare annual wellness visit, initial Osteopenia Thyroid nodule Tinnitus Urinary incontinence Surgical History History of hemorrhoidectomy Family History Father Alzheimers disease Mother COPD (chronic obstructive pulmonary disease) Sister Mental health problem Grandmother Mental health problem Social History marital status: details: She was in 1992 after her of prostate cancer. number of children: 1 household members: children pets and animals: Yes (3/dogs, 4/cats, 2/turtles) education level: master's degree occupational status: employed [employer]: [employer] travel history: other leisure activities: other seatbelt use: always water heater temp set < 120 deg: Yes working smoke detector in home: Yes fire extinguisher in home: Yes carbon monox detector in home: Yes firearms in home: No do you feel safe at home: No (When I leave home in different locations.) Smoking Status: Never smoker alcohol intake: current substance use type: amphetamines and prescription drug during the past year weight has: remained stable well-balanced diet: about half the time daily servings fruits/ve-4 caffeine: Yes (Rare/ 2 per month (soda), caffeine 2+ drinks per day) eating out: other Type(s) of exercise: walking frequency: other duration: 15-30 minutes/day additional social history[place]afisa dogs when feeling well. Meds Home Medications and Allergies Home Medications Medication Instructions Recorded Confirmed Type cholecalciferol (vitamin D3) 125 5,000 unit PO DAILY 11/05/19 07/26/23 History mcg (5,000 unit) capsule mecobalamin (vitamin B12) 5,000 5,000 mcg PO DAILY 11/05/19 07/26/23 History mcg disintegrating tablet pyridoxine (vitamin B6) 250 mg 250 mg PO DAILY 11/05/19 07/26/23 History tablet alprazolam 0.5 mg tablet 0.5 mg PO BID PRN anxiety #60 tabs 02/27/23 07/26/23 Rx dextroamphetamine-amphetamine 10 10 mg PO BID #60 tabs 06/27/23 07/26/23 Rx mg tablet (Adderall) ondansetron HCl 4 mg tablet 4 mg PO Q8H PRN nausea and 07/03/23 07/26/23 Rx vomiting #30 tabs Allergies Allergy/AdvReac Type Severity Reaction Status Date / Time atomoxetine Allergy Verified 07/26/23 11:26 Exam Vital Signs (past 8 hours): - 07/26/23 11:16 07/26/23 11:48 07/26/23 11:49 Temperature 97.7 F Pulse Rate 106 H 98 H Respiratory Rate 15 Blood Pressure 102/58 L 110/58 L Pulse Oximetry 94 Oxygen Delivery Method Room Air Oxygen Flow Rate 07/26/23 11:49 07/26/23 12:00 07/26/23 12:14 Temperature Pulse Rate 105 H 104 H Respiratory Rate Blood Pressure 121/57 L Pulse Oximetry Oxygen Delivery Method Oxygen Flow Rate 07/26/23 12:14 07/26/23 12:30 07/26/23 12:30 Temperature Pulse Rate 103 H 103 H Respiratory Rate Blood Pressure 114/59 L Pulse Oximetry 95 93 Oxygen Delivery Method Oxygen Flow Rate 07/26/23 13:00 07/26/23 13:00 07/26/23 13:34 Temperature Pulse Rate 111 H Respiratory Rate 28 H Blood Pressure 104/70 108/57 L Pulse Oximetry 90 L Oxygen Delivery Method Oxygen Flow Rate 07/26/23 13:34 07/26/23 14:00 07/26/23 14:00 Temperature Pulse Rate 94 H 111 H Respiratory Rate 25 H 26 H Blood Pressure 101/58 L Pulse Oximetry 89 L 93 Oxygen Delivery Method Oxygen Flow Rate 07/26/23 14:43 07/26/23 14:54 07/26/23 14:54 Temperature Pulse Rate 204 H 113 H Respiratory Rate 28 H Blood Pressure 106/58 L Pulse Oximetry 94 Oxygen Delivery Method Oxygen Flow Rate 07/26/23 15:00 07/26/23 15:00 07/26/23 15:15 Temperature Pulse Rate 100 H Respiratory Rate 29 H Blood Pressure 115/57 L 115/53 L Pulse Oximetry 86 L Oxygen Delivery Method Oxygen Flow Rate 07/26/23 15:15 07/26/23 15:30 07/26/23 15:30 Temperature Pulse Rate 104 H 112 H Respiratory Rate 27 H 28 H Blood Pressure 121/58 L Pulse Oximetry 89 L 83 L Oxygen Delivery Method Oxygen Flow Rate 07/26/23 15:45 07/26/23 15:45 07/26/23 16:00 Temperature Pulse Rate 116 H Respiratory Rate 27 H Blood Pressure 114/66 112/61 Pulse Oximetry 90 L Oxygen Delivery Method Oximask Oxygen Flow Rate 6 07/26/23 16:00 07/26/23 16:36 Temperature 100.5 F H Pulse Rate 108 H 107 H Respiratory Rate 24 18 Blood Pressure 103/46 L Pulse Oximetry 93 94 Oxygen Delivery Method Oxygen Flow Rate 6 Oxygen Delivery Method Oximask Oxygen Flow Rate 6 Const General: No acute distress Other: NG tube in place with bilious output Abdomen is soft and protuberant no tenderness palpation Objective Labs 07/26/23 11:57 07/26/23 11:57 Labs: Laboratory Results - last 24 hr 07/26/23 07/26/23 07/26/23 11:57 11:57 12:18 WBC 10.3 RBC 4.75 Hgb 11.5 L Hct 34.9 L MCV 73.4 L MCH 24.1 L MCHC 32.9 RDW 20.2 H Plt Count 404 H Neut % (Auto) Not Reportable Lymph % (Auto) Not Reportable [place] % (Auto) Not Reportable Eos % (Auto) Not Reportable Baso % (Auto) Not Reportable Lymph # (Auto) Not Reportable [place] # (Auto) Not Reportable Baso # (Auto) Not Reportable Total Counted 100 Seg Neutrophils % 45.0 Band Neutrophils % 30.0 H Lymphocytes % (Manual) 11.0 L Monocytes % (Manual) 9.0 Metamyelocytes % 5.0 H Neutrophils # (Manual) 7725 H RBC Morphology Not Reportable Anisocytosis 1+ H ABG pH ABG pCO2 ABG pO2 ABG HCO3 ABG Total CO2 ABG O2 Saturation ABG Base Excess FiO2 Sodium 129 L Potassium 3.5 Chloride 79 L Carbon Dioxide 36 H BUN 25 H Creatinine 0.72 Estimated GFR > 60 BUN/Creatinine Ratio 34.7 H Glucose 153 H Calcium 9.3 Magnesium Total Bilirubin 0.9 AST 37 H ALT 19 Alkaline Phosphatase 57 Ammonia < 9 L Total Protein 6.9 Albumin 3.5 Globulin 3.4 Albumin/Globulin Ratio 1.0 Lipase 17 L Procalcitonin Ur Bilirubin Confirm Urine RBC Urine WBC Ur Squamous Epith Cells Urine Bacteria Hyaline Casts Ur Culture Indicated? 07/26/23 07/26/23 07/26/23 12:18 12:18 13:11 WBC RBC Hgb Hct MCV MCH MCHC RDW Plt Count Neut % (Auto) Lymph % (Auto) [place] % (Auto) Eos % (Auto) Baso % (Auto) Lymph # (Auto) [place] # (Auto) Baso # (Auto) Total Counted Seg Neutrophils % Band Neutrophils % Lymphocytes % (Manual) Monocytes % (Manual) Metamyelocytes % Neutrophils # (Manual) RBC Morphology Anisocytosis ABG pH 7.60 H ABG pCO2 44.2 ABG pO2 53 L ABG HCO3 43 H ABG Total CO2 44 H ABG O2 Saturation 92 L ABG Base Excess 21.0 H FiO2 32 Sodium Potassium Chloride Carbon Dioxide BUN Creatinine Estimated GFR BUN/Creatinine Ratio Glucose Calcium Magnesium 2.3 Total Bilirubin AST ALT Alkaline Phosphatase Ammonia Total Protein Albumin Globulin Albumin/Globulin Ratio Lipase Procalcitonin 3.25 H Ur Bilirubin Confirm Urine RBC Urine WBC Ur Squamous Epith Cells Urine Bacteria Hyaline Casts Ur Culture Indicated? 07/26/23 07/26/23 15:28 15:28 WBC RBC Hgb Hct MCV MCH MCHC RDW Plt Count Neut % (Auto) Lymph % (Auto) [place] % (Auto) Eos % (Auto) Baso % (Auto) Lymph # (Auto) [place] # (Auto) Baso # (Auto) Total Counted Seg Neutrophils % Band Neutrophils % Lymphocytes % (Manual) Monocytes % (Manual) Metamyelocytes % Neutrophils # (Manual) RBC Morphology Anisocytosis ABG pH ABG pCO2 ABG pO2 ABG HCO3 ABG Total CO2 ABG O2 Saturation ABG Base Excess FiO2 Sodium Potassium Chloride Carbon Dioxide BUN Creatinine Estimated GFR BUN/Creatinine Ratio Glucose Calcium Magnesium Total Bilirubin AST ALT Alkaline Phosphatase Ammonia Total Protein Albumin Globulin Albumin/Globulin Ratio Lipase Procalcitonin Ur Bilirubin Confirm Negative Urine RBC 0-1/hpf Urine WBC 1-5/hpf Ur Squamous Epith Cells 0-1 /hpf Urine Bacteria Occasional (0-1) Hyaline Casts 0-1/lpf Ur Culture Indicated? Cult not indicated Assessment & Plan Assessment and plan (1) Small bowel obstruction: Status: Acute Plan Small bowel obstruction in a patient with no past surgical history. NG tube decompression for now and if she does not improve by tomorrow she will need to go to the operating room for exploratory laparotomy. My partner Dr. Kaba will be on tomorrow and is aware of the patient. I updated her son Moises Cameron. His phone number is [phone]
[2023-07-26] MEDS: FUROSEMIDE 20 MG/2 ML VIAL IV (18:06)
[2023-07-26] MEDS: PANTOPRAZOLE 40 MG VIAL IV (18:07)
[2023-07-26 18:23] LABS: INR 1.5 (0.9-1.3); Prothrombin Time 17.1 SECONDS (10.1-12.7)
[2023-07-26 18:28] LABS: Lactate (Lactic Acid) 1.8 mmol/L (0.7-2.1)
--- NOTE | 2023-07-26 19:01 | PM.HP.1 ---
History of Present Illness History of Present Illness Date Patient Seen: 07/26/23 Chief complaint: no BM T-7 Narrative: Luis Manuel Cameron is a 77yo F with PMH of ADHD, remote empyema s/p VATS, hearing loss, and anxiety who presents with abd distension and 1 week of NV. Patient states she noticed her abd becoming larger last week and hasn't had a BM in 5 days. Passing minimal gas. She then began vomiting so came to the ED. Found to have SBO and NG tube placed. Gen surg consulted for management. CT abd pelvis also showed bilateral pulm infiltrates and CXR confirmed PNA so started on IV CAP abx. Denies CP, SOB, dysuria or headache. [facility] Medical History Acute respiratory failure with hypoxia Advanced directives, counseling/discussion Cataract Chronic headaches Empyema Exudative pleural effusion Family history of psychiatric disorder Fecal incontinence Hemorrhoids History of neutropenia History of osteomyelitis as a child History of osteopenia History of sepsis Medicare annual wellness visit, initial Osteopenia Thyroid nodule Tinnitus Urinary incontinence Surgical History History of hemorrhoidectomy Family History Father Alzheimers disease Mother COPD (chronic obstructive pulmonary disease) Sister Mental health problem Grandmother Mental health problem Social History marital status: details: She was in 1992 after her of prostate cancer. 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: [employer] travel history: other leisure activities: other seatbelt use: always water heater temp set < 120 deg: Yes working smoke detector in home: Yes fire extinguisher in home: Yes carbon monox detector in home: Yes firearms in home: No do you feel safe at home: No (When I leave home in different locations.) Smoking Status: Never smoker alcohol intake: current substance use type: amphetamines and prescription drug during the past year weight has: remained stable well-balanced diet: about half the time daily servings fruits/ve-4 caffeine: Yes (Rare/ 2 per month (soda), caffeine 2+ drinks per day) eating out: other Type(s) of exercise: walking frequency: other duration: 15-30 minutes/day additional social history[place] and nafisa dogs when feeling well. Meds Home Medications and Allergies Home Medications Medication Instructions Recorded Confirmed Type cholecalciferol (vitamin D3) 125 5,000 unit PO DAILY 11/05/19 07/26/23 History mcg (5,000 unit) capsule mecobalamin (vitamin B12) 5,000 5,000 mcg PO DAILY 11/05/19 07/26/23 History mcg disintegrating tablet pyridoxine (vitamin B6) 250 mg 250 mg PO DAILY 11/05/19 07/26/23 History tablet alprazolam 0.5 mg tablet 0.5 mg PO BID PRN anxiety #60 tabs 02/27/23 07/26/23 Rx dextroamphetamine-amphetamine 10 10 mg PO BID #60 tabs 06/27/23 07/26/23 Rx mg tablet (Adderall) ondansetron HCl 4 mg tablet 4 mg PO Q8H PRN nausea and 07/03/23 07/26/23 Rx vomiting #30 tabs Allergies Allergy/AdvReac Type Severity Reaction Status Date / Time atomoxetine Allergy Verified 07/26/23 11:26 Review of Systems Review of Systems Narrative: All other systems reviewed with the patient and are negative unless otherwise stated. Exam Vital Signs (past 8 hours): - 07/26/23 11:16 07/26/23 11:48 07/26/23 11:49 Temperature 97.7 F Pulse Rate 106 H 98 H Respiratory Rate 15 Blood Pressure 102/58 L 110/58 L Pulse Oximetry 94 Oxygen Delivery Method Room Air Oxygen Flow Rate 07/26/23 11:49 07/26/23 12:00 07/26/23 12:14 Temperature Pulse Rate 105 H 104 H Respiratory Rate Blood Pressure 121/57 L Pulse Oximetry Oxygen Delivery Method Oxygen Flow Rate 07/26/23 12:14 07/26/23 12:30 07/26/23 12:30 Temperature Pulse Rate 103 H 103 H Respiratory Rate Blood Pressure 114/59 L Pulse Oximetry 95 93 Oxygen Delivery Method Oxygen Flow Rate 07/26/23 13:00 07/26/23 13:00 07/26/23 13:34 Temperature Pulse Rate 111 H Respiratory Rate 28 H Blood Pressure 104/70 108/57 L Pulse Oximetry 90 L Oxygen Delivery Method Oxygen Flow Rate 07/26/23 13:34 07/26/23 14:00 07/26/23 14:00 Temperature Pulse Rate 94 H 111 H Respiratory Rate 25 H 26 H Blood Pressure 101/58 L Pulse Oximetry 89 L 93 Oxygen Delivery Method Oxygen Flow Rate 07/26/23 14:43 07/26/23 14:54 07/26/23 14:54 Temperature Pulse Rate 204 H 113 H Respiratory Rate 28 H Blood Pressure 106/58 L Pulse Oximetry 94 Oxygen Delivery Method Oxygen Flow Rate 07/26/23 15:00 07/26/23 15:00 07/26/23 15:15 Temperature Pulse Rate 100 H Respiratory Rate 29 H Blood Pressure 115/57 L 115/53 L Pulse Oximetry 86 L Oxygen Delivery Method Oxygen Flow Rate 07/26/23 15:15 07/26/23 15:30 07/26/23 15:30 Temperature Pulse Rate 104 H 112 H Respiratory Rate 27 H 28 H Blood Pressure 121/58 L Pulse Oximetry 89 L 83 L Oxygen Delivery Method Oxygen Flow Rate 07/26/23 15:45 07/26/23 15:45 07/26/23 16:00 Temperature Pulse Rate 116 H Respiratory Rate 27 H Blood Pressure 114/66 112/61 Pulse Oximetry 90 L Oxygen Delivery Method Oximask Oxygen Flow Rate 6 07/26/23 16:00 07/26/23 16:36 Temperature 100.5 F H Pulse Rate 108 H 107 H Respiratory Rate 24 18 Blood Pressure 103/46 L Pulse Oximetry 93 94 Oxygen Delivery Method Oxygen Flow Rate 6 Oxygen Delivery Method Oximask Oxygen Flow Rate 6 Narrative Exam Narrative: GEN: no acute distress, hard of hearing HEENT: moist mucous membranes, PERRL NECK: trachea midline, no JVD CV: regular rate and rhythm, no murmurs PULM: clear bilaterally ABD: soft, nontender, distended, rare BT's, no organomegaly EXT: warm and well perfused with no edema NEURO: awake, alert, oriented, no focal deficits Objective Labs 07/26/23 11:57 07/26/23 11:57 Labs: Laboratory Results - last 24 hr 09/07/26/23 07/26/23 11:57 11:57 12:18 WBC 10.3 RBC 4.75 Hgb 11.5 L Hct 34.9 L MCV 73.4 L MCH 24.1 L MCHC 32.9 RDW 20.2 H Plt Count 404 H Neut % (Auto) Not Reportable Lymph % (Auto) Not Reportable [facility] % (Auto) Not Reportable Eos % (Auto) Not Reportable Baso % (Auto) Not Reportable Lymph # (Auto) Not Reportable [facility] # (Auto) Not Reportable Baso # (Auto) Not Reportable Total Counted 100 Seg Neutrophils % 45.0 Band Neutrophils % 30.0 H Lymphocytes % (Manual) 11.0 L Monocytes % (Manual) 9.0 Metamyelocytes % 5.0 H Neutrophils # (Manual) 7725 H RBC Morphology Not Reportable Anisocytosis 1+ H PT INR ABG pH ABG pCO2 ABG pO2 ABG HCO3 ABG Total CO2 ABG O2 Saturation ABG Base Excess FiO2 Sodium 129 L Potassium 3.5 Chloride 79 L Carbon Dioxide 36 H BUN 25 H Creatinine 0.72 Estimated GFR > 60 BUN/Creatinine Ratio 34.7 H Glucose 153 H Lactate Calcium 9.3 Magnesium Total Bilirubin 0.9 AST 37 H ALT 19 Alkaline Phosphatase 57 Ammonia < 9 L Total Protein 6.9 Albumin 3.5 Globulin 3.4 Albumin/Globulin Ratio 1.0 Lipase 17 L Procalcitonin Ur Bilirubin Confirm Urine RBC Urine WBC Ur Squamous Epith Cells Urine Bacteria Hyaline Casts Ur Culture Indicated? 07/26/23 07/26/23 07/26/23 12:18 12:18 13:11 WBC RBC Hgb Hct MCV MCH MCHC RDW Plt Count Neut % (Auto) Lymph % (Auto) [facility] % (Auto) Eos % (Auto) Baso % (Auto) Lymph # (Auto) [facility] # (Auto) Baso # (Auto) Total Counted Seg Neutrophils % Band Neutrophils % Lymphocytes % (Manual) Monocytes % (Manual) Metamyelocytes % Neutrophils # (Manual) RBC Morphology Anisocytosis PT INR ABG pH 7.60 H ABG pCO2 44.2 ABG pO2 53 L ABG HCO3 43 H ABG Total CO2 44 H ABG O2 Saturation 92 L ABG Base Excess 21.0 H FiO2 32 Sodium Potassium Chloride Carbon Dioxide BUN Creatinine Estimated GFR BUN/Creatinine Ratio Glucose Lactate Calcium Magnesium 2.3 Total Bilirubin AST ALT Alkaline Phosphatase Ammonia Total Protein Albumin Globulin Albumin/Globulin Ratio Lipase Procalcitonin 3.25 H Ur Bilirubin Confirm Urine RBC Urine WBC Ur Squamous Epith Cells Urine Bacteria Hyaline Casts Ur Culture Indicated? 07/26/23 07/26/23 07/26/23 15:28 15: 18:05 WBC RBC Hgb Hct MCV MCH MCHC RDW Plt Count Neut % (Auto) Lymph % (Auto) [facility] % (Auto) Eos % (Auto) Baso % (Auto) Lymph # (Auto) [facility] # (Auto) Baso # (Auto) Total Counted Seg Neutrophils % Band Neutrophils % Lymphocytes % (Manual) Monocytes % (Manual) Metamyelocytes % Neutrophils # (Manual) RBC Morphology Anisocytosis PT 17.1 H INR 1.5 H ABG pH ABG pCO2 ABG pO2 ABG HCO3 ABG Total CO2 ABG O2 Saturation ABG Base Excess FiO2 Sodium Potassium Chloride Carbon Dioxide BUN Creatinine Estimated GFR BUN/Creatinine Ratio Glucose Lactate Calcium Magnesium Total Bilirubin AST ALT Alkaline Phosphatase Ammonia Total Protein Albumin Globulin Albumin/Globulin Ratio Lipase Procalcitonin Ur Bilirubin Confirm Negative Urine RBC 0-1/hpf Urine WBC 1-5/hpf Ur Squamous Epith Cells 0-1 /hpf Urine Bacteria Occasional (0-1) Hyaline Casts 0-1/lpf Ur Culture Indicated? Cult not indicated 07/26/23 18:05 WBC RBC Hgb Hct MCV MCH MCHC RDW Plt Count Neut % (Auto) Lymph % (Auto) [facility] % (Auto) Eos % (Auto) Baso % (Auto) Lymph # (Auto) [facility] # (Auto) Baso # (Auto) Total Counted Seg Neutrophils % Band Neutrophils % Lymphocytes % (Manual) Monocytes % (Manual) Metamyelocytes % Neutrophils # (Manual) RBC Morphology Anisocytosis PT INR ABG pH ABG pCO2 ABG pO2 ABG HCO3 ABG Total CO2 ABG O2 Saturation ABG Base Excess FiO2 Sodium Potassium Chloride Carbon Dioxide BUN Creatinine Estimated GFR BUN/Creatinine Ratio Glucose Lactate 1.8 Calcium Magnesium Total Bilirubin AST ALT Alkaline Phosphatase Ammonia Total Protein Albumin Globulin Albumin/Globulin Ratio Lipase Procalcitonin Ur Bilirubin Confirm Urine RBC Urine WBC Ur Squamous Epith Cells Urine Bacteria Hyaline Casts Ur Culture Indicated? Assessment & Plan Assessment & Plan narrative: # acute hypoxic respiratory failure -likely secondary to pneumonia, requiring 4-6L as sats were down to 83% -wean O2 as able # community-acquired pneumonia -chest x-ray with bilateral infiltrates -continue Rocephin and azithromycin IV -obtain sputum culture if able # SBO -CT abdomen showed dilated loops of bowel with transition point at cecum, unclear cause is patient denies abdominal surgeries in past -general surgery consulted -NG tube in place -strict NPO # ADHD -hold home Adderall while NPO # anxiety -Ativan IV as needed Code status is full code. DVT prophylaxis with SCDs. Proxy is son. I have reviewed home meds and used all available resources to reconcile the home meds. Case discussed with ED physician/APC and patient will be admitted to the hospitalist service for further workup and management. This patient will be admitted as inpatient and will require greater than 2 midnights of hospital time to treat SBO, hypoxic respiratory failure.
[2023-07-26 21:39] LABS: Sodium Urine Random 113 mmol/L (30-90)
[2023-07-27] VITALS (16 sets, daily range): BP systolic 93–131; BP diastolic 40–63; PULSE 72–98; RESP 16–22; TEMP 35.5–36.7; O2SAT 84–100; BMI 20.5
--- NOTE | 2023-07-27 | PATH_ITS ---
[facility] Accession Number: [id number] No. of containers..01 Tissue . 01 Material submitted: . body - RIGHT COLON SMALL BOWEL, RIGHT OVARY AND TUBES, DOME OF BLADDER . 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 Please see CAP Summary data below. . CASE SUMMARY ([facility] 4.2.0.2, MARCH 2022) Tumor site: Ileocecal valve. 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 Histologic grade: G3, poorly differentiated. Tumor size: Greatest dimension 6.9 cm. Tumor extent: Directly invades bladder. Macroscopic tumor perforation: Not identified. Lymphovascular invasion: Extensive lymphovascular invasion. Perineural invasion: Present. Treatment effect: No known presurgical therapy. . Margins: Margin status for invasive carcinoma: All margins negative for invasive carcinoma. Closest margin to invasive carcinoma: Bladder wall: 4 mm. Remaining margins are greater than 1 cm, including bowel proximal, distal, circumferential, and fallopian tube margins. . Regional Lymph Node Status: Tumor present in regional lymph nodes. Number of lymph nodes with tumor: 5. Number of lymph nodes examined: 23. Tumor deposits: Not identified. . Pathologic Stage Classification (AJCC 8th Edition) pT category: pT4b pN category: pN2a pM category: Not applicable. . Additional Findings: Fallopian tube with paratubal cysts and endosalpingiosis. Right ovary with no evidence of neoplasm. . Special Studies: Mismatch repair: Loss of nuclear expression of MLH1 and PMS2: testing for BRAF will be performed and the results reported as an addendum. . MRV 08/02/2023 1515 Local . 01 Comment: One lymph node examined was found to have isolated tumor cells by immunohistochemistry (block A19), less than 0.2mm. This finding does not affect the pathologic stage classification. . Dr. Kan discussed the preliminary diagnosis of adenocarcinoma with Dr. Kaba on 07/31/2023. Dr. Cherry also reviewed selected slides and agrees with the diagnosis ofadenocarcinoma. . 01 Electronically signed: . Dianne Kan MD, Pathologist NPI- [id number] . 01 Gross description: . The specimen is received in formalin labeled with the patient's name, , and right colon small bowel, right ovarian tubes, dome of bladder, and consists of a right hemicolectomy with attached fragment of bladder dome, fallopian tube, and ovary. Ileum: 12.0 cm in length by 5.5 cm in average diameter. Colon: 38.5 cm in length by 2.5-4.7 cm in diameter. The nearest area is located just distal to the cecum. No appendix is identified. Fragment of bladder (located approximately adjacent to the ileocecal valve): 3.4 x 3.3 x 1.5 cm with exposed mucosa and a circumferential cauterized margin. Fallopian tube: 3.5 cm in length by 0.5 cm in diameter. Ovary: 2.3 x 0.9 cm. The serosa is kelsey and glistening with no areas of puckering identified. Margins: Ileal blue, colon black, mesenteric green, bladder red, fallopian tube orange, ovarian ligament black. An annular sessile mass arising from the ileocecal valve is identified measuring 4.7 cm from proximal to distal and approximately 6.9 cm in circumference. The ileocecal valve is narrowed but probe-patent. Semisolid fecal material is found within the dilated ileum lumen while solid fecal material found within the slightly narrowed colon lumen. Extension: The mass extends through the bowel wall into the pericolonic fat, abuts the serosa, and is also seen extending into the attached bladder fragment with visible extension to the bladder mucosa. No extension is identified into the tube or ovary with the mass measuring 3.8 cm away. Margins: 0.7 cm from the bladder margin, widely free from the ileum, colon, mesenteric, ovarian, and fallopian tube margins. Bladder: The serosa is congested and smooth with brown, velvety mucosa that is centrally puckered correlating to direct tumor extension. Fallopian tube: Violaceous, smooth serosa with multiple cystic structures up to 0.7 cm in greatest dimension, filled with clear serous fluid. Sectioning reveals an unremarkable stellate lumen. Ovary: Kelsey, cerebriform external surface with a small white nodule, 0.4 x 0.3 x 0.3 cm. Sectioning reveals the nodule to have a white, rubbery cut surface. No additional lesions are identified. Mucosa: The remaining colonic mucosa is kelsey and velvety with diffusely attenuated folds and no additional lesions identified. The alonso average 0.1 cm thick with no diverticula identified. Lymph nodes: 24 lymph node candidates are identified, 0.2-1.3 cm in greatest dimension. . Cassette summary: A1: Store Facility Technician proximal, distal, and mesenteric margins en face. A2: Mass to proximal normal. A3: Mass to distal normal. A4-A5: Composite mass with extension to bladder mucosa (purple-inked edge indicates adjacent cut surfaces for composite section). A6-A11: Remaining red-inked bladder margin perpendicular. A12: Soft tissue between the mass and tube/ovary including ovarian ligament margin. A13: Fallopian tube margin. A14: Store Facility Technician fallopian tube to include entire fimbriae and cross sections. A15: Store Facility Technician ovary with nodule. A16: Normal colonic mucosa. A17: Single bisected lymph node candidate. A18: Single bisected lymph node candidate. A19: Single bisected lymph node candidate. A20: Two intact lymph node candidates. A21: Three intact lymph node candidates. A22: Four intact lymph node candidates. A23: Four intact lymph node candidates. A24: Four intact lymph node candidates. A25: Four intact lymph node candidates. ([id number]) . Additional sections are submitted as follows: A26-A27: Remaining fallopian tube cross-sections. A28-A29: Remaining ovary. A30-A33: Additional sections of mass. ([id number]) /FRR 07/31/2023 0942 Local . 01 Microscopic: . Immunohistochemical stains were performed to characterize cells of interest. All control stains showed appropriate reactivity. . In block A19, scattered large isolated cells are noted and immunohistochemistry is performed to determine cell lineage. . Results: PATIENCE: Highlights rare positive cells (isolated tumor cells). CD3: Highlights T cells. CD20: Highlights B cells. . Interpretation: CD3 and CD20 highlight normal architecture with normal distribution without crowded follicles. . Block A20: Result: PATIENCE: Negative. . Block A2: PATIENCE: Positive. CK7: Negative. CK20: Rare positive cells. CDX2: Positive. Villin: Positive. SATB2: Positive. PAX8: Negative. WT1: Negative. GATA3: Negative. S100: Negative. Uroplakin: Negative. . Interpretation: The immunophenotype is compatible with a colorectal site of origin. Aberrant CK20 expression sometimes occurs when there is also loss of mismatch repair protein expression. The absence of expression of PAX8 and WT1 mitigate against a gynecologic site of origin. The absence of GATA3 and uroplakin mitigate against urothelial origin. . IMMUNOHISTOCHEMISTRY TESTING FOR MISMATCH REPAIR PROTEINS Block A2: . MLH1: Loss of nuclear expression. MSH2: Intact nuclear expression. MSH6: Intact nuclear expression. PMS2: Loss of nuclear expression. Background nonneoplastic tissue/internal control with intact nuclear expression. . INTERPRETATION: Loss of nuclear expression of MLH1 and PMS2: testing for methylation of the MLH1 promoter and/or mutation of BRAF is indicated (the presence of a BRAF V600E mutation and/or MLH1 methylation suggests that the tumor is sporadic and germline evaluation is probably not indicated; absence of both MLH1 methylation and of BRAF V600E mutation suggests the possibility of Vaughn syndrome, and sequencing and/or large deletion/duplication testing of germline MLH1 may be indicated)* . * There are exceptions to the above IHC interpretations. These results should not be considered in isolation, and clinical correlation with genetic counseling is recommended to assess the need for germline testing. . * This test was developed and its performance characteristics determined by [facility]. It has not been cleared or approved by the U.S. Food and Drug Administration. The FDA has determined that such clearance or approval is not necessary. This test is used for clinical purposes. It should not be regarded as investigational or for research. . 01 Pathologist provided ICD-10: C18.9 . 01 CPT . 784587, [id number], C55656 Specimen Comment: A courtesy copy of this report has been sent to [phone] Performed at: 01 [facility] [address] [place] [address] [address] [facility] [place], [place], [place] [id number] MD Junior Rizvi MD Phone: [phone]
[2023-07-27 05:59] LABS: Add Manual Diff / Slide Review NO; Basophils Absolute Auto 0 /uL (0-100); Basophils Percent Auto 0.2 % (0-2); Eosinophils Absolute Auto 0 /uL (0-450); Hematocrit 31.6 % (36-46); Hemoglobin 10.3 g/dL (12.0-16.0); Lymphocytes Absolute Auto 1000 /uL (1100-4500); Lymphocytes Percent Auto 8.5 % (25-40); Mean Corpuscular HGB Conc 32.7 % (30-36); Mean Corpuscular Hemoglobin 23.9 PG (26-34); Mean Corpuscular Volume 73.1 fL (80-100); Monocytes Absolute Auto 900 /uL (0-900); Monocytes Percent Auto 7.6 % (3-14); Neutrophils Absolute Auto 10000 /uL (1500-7000); Neutrophils Percent Auto 83.7 % (50-75); Platelet Count 349 X10^3/uL (150-400); Red Blood Cell Count 4.32 X10^6/uL (4.0-5.2); Red Cell Distribution Width 20.1 % (11.6-14.8)
[2023-07-27 06:02] LABS: BUN Creatinine Ratio 35.3 (6-22); Blood Urea Nitrogen 24 mg/dL (7-17); Calcium 8.9 mg/dL (8.4-10.2); Chloride 85 mmol/L (98-107); Estimated Glomerular Filt Rate > 60 mL/min (>60); Glucose 97 mg/dL (80-110); HEMOLYSIS < 15 (0-50); Sodium 130 mmol/L (137-145)
[2023-07-27 06:19] LABS: Procalcitonin 2.35 ng/mL (<0.5)
[2023-07-27 06:23] LABS: Anisocytosis 1+; Microcytosis 1+
[2023-07-27 06:28] LABS: Potassium 2.5 mmol/L (3.4-5.1)
[2023-07-27 06:29] LABS: Carbon Dioxide 40 mmol/L (22-32)
[2023-07-27] MEDS: PANTOPRAZOLE 40 MG VIAL IV ×2 (09:08→20:26)
[2023-07-27] MEDS: POTASSIUM CHLORIDE IN WATER 10 MEQ/100 ML PIGGYBACK 100 MEQ IV ×8 (09:09→21:54)
--- NOTE | 2023-07-27 11:57 | PC.NURSE ---
Addendum entered by Clau Rogers R.N. 07/27/23 16:59: Patient back from surgery. She had a resection of bowel and a bladder dome per report. She has an aquacel in place with small amount of dried drainage. She is groggy but wakes up well. NG tube is set to lIS and she has a abrams catheter in place. Son just left to let the dogs out and he will be back in a couple of hours. He is sad and crying. Addendum entered by Clau Rogers R.N. 07/27/23 13:55: Patient down to surgery around 1300 Original Note: Patients NG tube is putting out brownish colored drainage and set to LIS. Her abdomen is less distended today and softer. Patients K+level is down to 2.5. has ordered 8 iv k riders to be given today. She is on her 3rd and tolerating this well. Son is visiting now and she is suppose to go down to surgery around 1200 today.
--- NOTE | 2023-07-27 12:07 | CM.DANOTE ---
Initial DCP Assessment Note Reviewed EMR and team rounds for pt's medical status and immediate dcp needs. Pt was found to be alert and oriented, met with her at bedside to introduce self and role, met her son, Moises, at end of this visit. Payor: Medicare PCP: Arie Jonas Attending: Lashae Pt is a 77 year-old F admitted to OBS for small bowel obstruction. She shares that she had 1-week with no BM, and N/V, weakness and fatigue. She was also found to have bilateral effusions and what is suspected as community acquired pneumonia. IV ABO's were started, surgical consult was completed by Dr. Babb, plan is for surgery today for the SBO. Son provides for all pt's home care needs and home maintenance, he will plan to transport pt home at such time she is cleared for home d/c. No identified resource or in-home support needs are identified at this time. will continue to monitor for post-surgery OP recommendations. Discharge Planning/Care Management CM Discharge Assessment Start: 07/27/23 11:27 Freq: Status: Active Protocol: Document 07/27/23 11:28 DPL (Rec: 07/27/23 12:07 DPL [id number]) Discharge Planning Assessment Assigned Poultry Packer JONELLE Arreola Advance Directives? Yes Advance Directives on File No History Provided By Family Member Has Patient been admitted in last 30 No days? Prior Living Arrangements House Household Members children Comment Pt's son, Moises, is providing cg and home maintenance for pt. Type of transporation used prior to Drives own vehicle admit Willing to Return to Facility? No Independent with ADL's Yes Is patient alert and oriented? Yes Caregiver for Another No Comment N/A Comment Pending post-surgery recommendations. Barriers to Discharge No Discharge Plan Home Transportation Arrangement Son will transport home. Additional Comment Will continue to monitor. Whiteboard Updated in Patient Room with Yes name and ext. # of Poultry Packer Review Status In Process Please Provide Date Initial DC 07/27/23 Assessment Was Performed
--- NOTE | 2023-07-27 12:59 | PM.PN.1 ---
Subjective Subjective Date Patient Seen: 07/27/23 Time Patient Seen: 12:59 Interval history: Bowel obstruction remains unchanged. NG tube large volume of bilious output. Exam Vital Signs (past 8 hours): - 07/27/23 08:00 07/27/23 12:00 Temperature 96 F L 97.7 F Pulse Rate 88 93 H Respiratory Rate 18 18 Blood Pressure 103/46 L 109/51 L Pulse Oximetry 96 97 Oxygen Flow Rate 2 2 Oxygen Delivery Method Nasal Cannula Oxygen Flow Rate 2 Narrative Exam Narrative: General adult woman alert oriented. Abdomen distended no peritonitis. Nasogastric tube bilious output Objective Labs 07/27/23 05:25 07/27/23 05:25 Labs: Laboratory Results - last 24 hr 07/26/23 07/26/23 07/26/23 12:18 12:18 13:11 WBC RBC Hgb Hct MCV MCH MCHC RDW Plt Count Neut % (Auto) Lymph % (Auto) [place] % (Auto) Eos % (Auto) Baso % (Auto) Neut # (Auto) Lymph # (Auto) [place] # (Auto) Eos # (Auto) Baso # (Auto) RBC Morphology Anisocytosis Microcytosis PT INR ABG pH 7.60 H ABG pCO2 44.2 ABG pO2 53 L ABG HCO3 43 H ABG Total CO2 44 H ABG O2 Saturation 92 L ABG Base Excess 21.0 H FiO2 32 Sodium Potassium Chloride Carbon Dioxide BUN Creatinine Estimated GFR BUN/Creatinine Ratio Glucose Lactate Calcium Magnesium 2.3 Procalcitonin 3.25 H Ur Bilirubin Confirm Urine RBC Urine WBC Ur Squamous Epith Cells Urine Bacteria Hyaline Casts Ur Culture Indicated? Ur Random Sodium 07/26/23 07/26/23 07/26/23 15:28 15:28 18:05 WBC RBC Hgb Hct MCV MCH MCHC RDW Plt Count Neut % (Auto) Lymph % (Auto) [place] % (Auto) Eos % (Auto) Baso % (Auto) Neut # (Auto) Lymph # (Auto) [place] # (Auto) Eos # (Auto) Baso # (Auto) RBC Morphology Anisocytosis Microcytosis PT 17.1 H INR 1.5 H ABG pH ABG pCO2 ABG pO2 ABG HCO3 ABG Total CO2 ABG O2 Saturation ABG Base Excess FiO2 Sodium Potassium Chloride Carbon Dioxide BUN Creatinine Estimated GFR BUN/Creatinine Ratio Glucose Lactate Calcium Magnesium Procalcitonin Ur Bilirubin Confirm Negative Urine RBC 0-1/hpf Urine WBC 1-5/hpf Ur Squamous Epith Cells 0-1 /hpf Urine Bacteria Occasional (0-1) Hyaline Casts 0-1/lpf Ur Culture Indicated? Cult not indicated Ur Random Sodium 07/26/23 07/26/23 07/27/23 18:05 18:30 05:25 WBC 12.0 H RBC 4.32 Hgb 10.3 L Hct 31.6 L MCV 73.1 L MCH 23.9 L MCHC 32.7 RDW 20.1 H Plt Count 349 Neut % (Auto) 83.7 H Lymph % (Auto) 8.5 L [place] % (Auto) 7.6 Eos % (Auto) 0.0 L Baso % (Auto) 0.2 Neut # (Auto) 35818 H Lymph # (Auto) 1000 L [place] # (Auto) 900 Eos # (Auto) 0 Baso # (Auto) 0 RBC Morphology See below Anisocytosis 1+ H Microcytosis 1+ H PT INR ABG pH ABG pCO2 ABG pO2 ABG HCO3 ABG Total CO2 ABG O2 Saturation ABG Base Excess FiO2 Sodium Potassium Chloride Carbon Dioxide BUN Creatinine Estimated GFR BUN/Creatinine Ratio Glucose Lactate 1.8 Calcium Magnesium Procalcitonin Ur Bilirubin Confirm Urine RBC Urine WBC Ur Squamous Epith Cells Urine Bacteria Hyaline Casts Ur Culture Indicated? Ur Random Sodium 113 H 07/27/23 05:25 WBC RBC Hgb Hct MCV MCH MCHC RDW Plt Count Neut % (Auto) Lymph % (Auto) [place] % (Auto) Eos % (Auto) Baso % (Auto) Neut # (Auto) Lymph # (Auto) [place] # (Auto) Eos # (Auto) Baso # (Auto) RBC Morphology Anisocytosis Microcytosis PT INR ABG pH ABG pCO2 ABG pO2 ABG HCO3 ABG Total CO2 ABG O2 Saturation ABG Base Excess FiO2 Sodium 130 L Potassium 2.5 L* Chloride 85 L Carbon Dioxide 40 H* BUN 24 H Creatinine 0.68 Estimated GFR > 60 BUN/Creatinine Ratio 35.3 H Glucose 97 Lactate Calcium 8.9 Magnesium Procalcitonin 2.35 H Ur Bilirubin Confirm Urine RBC Urine WBC Ur Squamous Epith Cells Urine Bacteria Hyaline Casts Ur Culture Indicated? Ur Random Sodium PFSH Medical History Acute respiratory failure with hypoxia Advanced directives, counseling/discussion Cataract Chronic headaches Empyema Exudative pleural effusion Family history of psychiatric disorder Fecal incontinence Hemorrhoids History of neutropenia History of osteomyelitis as a child History of osteopenia History of sepsis Medicare annual wellness visit, initial Osteopenia Thyroid nodule Tinnitus Urinary incontinence Surgical History History of hemorrhoidectomy Family History Father Alzheimers disease Mother COPD (chronic obstructive pulmonary disease) Sister Mental health problem Grandmother Mental health problem Social History marital status: details: She was in 1992 after her of prostate cancer. 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: [employer] travel history: other leisure activities: other seatbelt use: always water heater temp set < 120 deg: Yes working smoke detector in home: Yes fire extinguisher in home: Yes carbon monox detector in home: Yes firearms in home: No do you feel safe at home: No (When I leave home in different locations.) Smoking Status: Never smoker alcohol intake: current substance use type: amphetamines and prescription drug during the past year weight has: remained stable well-balanced diet: about half the time daily servings fruits/ve-4 caffeine: Yes (Rare/ 2 per month (soda), caffeine 2+ drinks per day) eating out: other Type(s) of exercise: walking frequency: other duration: 15-30 minutes/day additional social history: Lives by the [place] walk and nafisa dogs when feeling well. Assessment & Plan Assessment and plan (1) Small bowel obstruction: Status: Acute Assessment & Plan narrative: 77-year-old woman no prior abdominal surgery with a small-bowel obstruction. CT abdomen pelvis personally reviewed demonstrates dilated loops small-bowel possible transition point at the ileocecal valve. Discussed with patient and her son who is at the bedside recommendations that we proceed with exploratory laparotomy and possible bowel resection, possible ostomy. Overview of the operation discussed. Operative risks including hemorrhage, infection, anastomotic leak, damage to surrounding structures discussed. Questions have been answered. She provides a written and verbal consent to proceed
--- NOTE | 2023-07-27 14:01 | SUR.OPER ---
Supine on padded OR bed, head on pillow, arms secured on padded arm boards at <90 degrees abduction, legs uncrossed, safety belt at thigh, tape over blanket over lower legs.
[2023-07-27] MEDS: BUPIVACAINE 0.25% (PF) VIAL 30 ML INJ (15:14)
--- NOTE | 2023-07-27 16:39 | PM.PN.1 ---
Subjective Subjective Interval history: Patient awaiting surgery today for SBO. Still has NG in place. Now on 4L NC. Exam Vital Signs (past 8 hours): - 07/27/23 12:00 07/27/23 13:15 07/27/23 15:32 Temperature 97.7 F 97.2 F L Pulse Rate 93 H 93 H 77 Respiratory Rate 18 16 22 Blood Pressure 109/51 L 106/61 131/49 L Pulse Oximetry 97 93 84 L Oxygen Delivery Method Nasal Cannula Room Air Oxygen Flow Rate 2 2 6 07/27/23 15:36 07/27/23 15:42 07/27/23 15:46 Temperature Pulse Rate 81 78 75 Respiratory Rate 19 19 18 Blood Pressure 104/44 L 110/58 L 109/49 L Pulse Oximetry 89 L 88 L 92 Oxygen Delivery Method Simple Mask Simple Mask Simple Mask Oxygen Flow Rate 6 6 6 07/27/23 15:56 Temperature Pulse Rate 72 Respiratory Rate 18 Blood Pressure 100/40 L Pulse Oximetry 95 Oxygen Delivery Method Simple Mask Oxygen Flow Rate 5 Oxygen Delivery Method Simple Mask Oxygen Flow Rate 5 Narrative Exam Narrative: GEN: no acute distress, hard of hearing HEENT: moist mucous membranes, PERRL NECK: trachea midline, no JVD CV: regular rate and rhythm, no murmurs PULM: clear bilaterally ABD: soft, nontender, distended, rare BT's, no organomegaly EXT: warm and well perfused with no edema NEURO: awake, alert, oriented, no focal deficits Objective Labs 07/27/23 05:25 07/27/23 05:25 Labs: Laboratory Results - last 24 hr 07/26/23 07/26/23 07/26/23 18:05 18:05 18:30 WBC RBC Hgb Hct MCV MCH MCHC RDW Plt Count Neut % (Auto) Lymph % (Auto) [place] % (Auto) Eos % (Auto) Baso % (Auto) Neut # (Auto) Lymph # (Auto) [place] # (Auto) Eos # (Auto) Baso # (Auto) RBC Morphology Anisocytosis Microcytosis PT 17.1 H INR 1.5 H Sodium Potassium Chloride Carbon Dioxide BUN Creatinine Estimated GFR BUN/Creatinine Ratio Glucose Lactate 1.8 Calcium Procalcitonin Ur Random Sodium 113 H 07/27/23 07/27/23 05:25 05:25 WBC 12.0 H RBC 4.32 Hgb 10.3 L Hct 31.6 L MCV 73.1 L MCH 23.9 L MCHC 32.7 RDW 20.1 H Plt Count 349 Neut % (Auto) 83.7 H Lymph % (Auto) 8.5 L [place] % (Auto) 7.6 Eos % (Auto) 0.0 L Baso % (Auto) 0.2 Neut # (Auto) 33848 H Lymph # (Auto) 1000 L [place] # (Auto) 900 Eos # (Auto) 0 Baso # (Auto) 0 RBC Morphology See below Anisocytosis 1+ H Microcytosis 1+ H PT INR Sodium 130 L Potassium 2.5 L* Chloride 85 L Carbon Dioxide 40 H* BUN 24 H Creatinine 0.68 Estimated GFR > 60 BUN/Creatinine Ratio 35.3 H Glucose 97 Lactate Calcium 8.9 Procalcitonin 2.35 H Ur Random Sodium PFSH Medical History Acute respiratory failure with hypoxia Advanced directives, counseling/discussion Cataract Chronic headaches Empyema Exudative pleural effusion Family history of psychiatric disorder Fecal incontinence Hemorrhoids History of neutropenia History of osteomyelitis as a child History of osteopenia History of sepsis Medicare annual wellness visit, initial Osteopenia Thyroid nodule Tinnitus Urinary incontinence Surgical History History of hemorrhoidectomy Family History Father Alzheimers disease Mother COPD (chronic obstructive pulmonary disease) Sister Mental health problem Grandmother Mental health problem Social History marital status: details: She was in 1992 after her of prostate cancer. 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 travel history: other leisure activities: other seatbelt use: always water heater temp set < 120 deg: Yes working smoke detector in home: Yes fire extinguisher in home: Yes carbon monox detector in home: Yes firearms in home: No do you feel safe at home: No (When I leave home in different locations.) Smoking Status: Never smoker alcohol intake: current substance use type: amphetamines and prescription drug during the past year weight has: remained stable well-balanced diet: about half the time daily servings fruits/ve-4 caffeine: Yes (Rare/ 2 per month (soda), caffeine 2+ drinks per day) eating out: other Type(s) of exercise: walking frequency: other duration: 15-30 minutes/day additional social history: [place] walk and nafisa dogs when feeling well. Assessment & Plan Assessment & Plan narrative: # acute hypoxic respiratory failure -likely secondary to pneumonia, requiring 4-6L as sats were down to 83% -wean O2 as able # community-acquired pneumonia -chest x-ray with bilateral infiltrates -continue Rocephin and azithromycin IV -obtain sputum culture if able # SBO -CT abdomen showed dilated loops of bowel with transition point at cecum, unclear cause is patient denies abdominal surgeries in past -general surgery consulted -NG tube in place -going for surgery 07/27 for ex-lap and possible SB resection or ostomy # ADHD -hold home Adderall while NPO # anxiety -Ativan IV as needed Code status is full code. DVT prophylaxis with SCDs. Proxy is son. I have reviewed home meds and used all available resources to reconcile the home meds. Dispo: Pending SBO surgery.
--- NOTE | 2023-07-27 17:10 | PM.OP.1 ---
Operative Date/Time/Diagnoses Date of procedure: 07/27/23 Time of procedure: 17:10 Pre-op diagnosis: Small-bowel obstruction Post-op diagnosis: other (Metastatic colon cancer) Procedure & Clinicians Procedure: Right hemicolectomy with right oophorectomy and salpingectomy oophorectomy, partial cystectomy Same procedure as scheduled: Yes Indications: 77-year-old woman who presented to the hospital with a small-bowel obstruction. CT abdomen pelvis demonstrates dilated loops of small bowel transition point at the terminal ileum there was an abnormality within the cecum. No prior abdominal surgery. She is taken to the operating room for an exploratory laparotomy. Surgeon: Venu Kaba Information [employer] Security Developer: Chelly Fitzpatirck Anesthesia Type: General Operative Notes Findings: Palpable liver met. Large tumor within the cecum invading into the small bowel right ovary and dome of the bladder. Specimen(s): other (Right colon with small-bowel right ovary and dome of bladder) Estimated Blood Loss (mL): 50 Procedure in detail: Patient was brought to the operating room placed supine on the table. Bilateral lower extremity compression devices were applied. General anesthesia was induced he was intubated with an endotracheal tube. Montano catheter was sterilely placed. She was then prepped and draped in sterile fashion time-out performed. We made a midline laparotomy and the abdomen was entered. The small bowel was extremely dilated and was eviscerated. There was a large firm mass within the cecum. This mass appears to be originating from the cecum but involves the terminal ileum the right ovary and the dome of the bladder. We began with mobilization of the right colon. The ligament of Toldt was incised and the dissection was carried up to the hepatic flexure. We then divided the colon at the hepatic flexure. Window within the mesentery was made and the bowel was divided with the JUDITH stapler blue load 75 mm. The mesentery to the right colon was then taken with the LigaSure. The duodenum was visualized and kept posterior out of harm's way. We continued our dissection down to the cecum. Again the right ovary, the dome of the bladder and the terminal ileum were adherent to one another. The right ureter was identified within the pelvis confirmed by its vermiculation. The ureter was kept posterior out of harm's way. The dome of the bladder was excised using the LigaSure. The bladder was then closed in 2 layers. In inner layer of Monocryl was run and then this was imbricated with a running Vicryl suture. The right tube and ovary were divided using the LigaSure. We made a window within the mesentery to the terminal ileum and then the bowel was divided here with the JUDITH stapler. At this point the entire specimen was passed off the field. A small volume of gelatinous material within the abdomen was sent for cytology. The distal aspect of the small bowel was slightly ischemic and so this was trimmed back using another firing of the JUDITH stapler. We then created a [id number] functional and end anastomosis between the small bowel and the transverse colon. A colotomy and enterotomy were made and then a stapler was used to create a common channel. The anastomosis was widely patent and hemostatic. The TA stapler was then used to close the common opening. The staple line was oversewn with interrupted imbricating silk suture. The mesenteric defect was closed with running PDS suture. The bowel was then returned to the abdomen the abdomen was irrigated with several L of sterile saline until it returned clear. The liver was palpated and within the dome of the liver there was a 5 mm firm nodule consistent with metastatic disease. The abdomen was then closed with a running 1. PDS suture for the fascia and the skin was closed with christopher. She tolerated the operation well was transferred to recovery room in stable condition. Complications: none Post-operative Condition: stable Disposition: Acute Care
[2023-07-27] MEDS: AZITHROMYCIN 500 MG in DEXTROSE 5% IN WATER 250 ML 250 MG IV (17:22)
[2023-07-27] MEDS: cefTRIAXone 1,000 MG in SODIUM CHLORIDE 0.9% 100 ML 200 MG IV (18:34)
[2023-07-27 20:38] LABS: BUN Creatinine Ratio 41.5 (6-22); Blood Urea Nitrogen 22 mg/dL (7-17); Calcium 8.4 mg/dL (8.4-10.2); Carbon Dioxide 32 mmol/L (22-32); Chloride 91 mmol/L (98-107); Estimated Glomerular Filt Rate > 60 mL/min (>60); Glucose 143 mg/dL (80-110); HEMOLYSIS 16 (0-50); Potassium 3.8 mmol/L (3.4-5.1); Sodium 129 mmol/L (137-145)
[2023-07-28] VITALS: BP 130/80; PULSE 107; RESP 22; TEMP 35.9; O2SAT 95
[2023-07-28] MEDS: HYDROMORPHONE 0.5 MG INJ IV (01:33)
--- NOTE | 2023-07-28 01:56 | PC.NURSE ---
Pt is currently asleep, reading ST on tele 128-130s. BP 130/80, no fever. Na 129 at 1999 on 07/27 and potassium is 3.8 after being replaced yesterday. Notified the doctor and he ordered 20KCL with NS at 100ml/hr.
[2023-07-28] MEDS: KCL 20 MEQ IN NS 1,000 ML 100 MEQ IV ×2 (02:11→12:59)
[2023-07-28 04:00] VITALS: BP 141/72; PULSE 129; RESP 20; TEMP 35.9; O2SAT 95
[2023-07-28 06:08] LABS: Add Manual Diff / Slide Review NO; Basophils Absolute Auto 0 /uL (0-100); Basophils Percent Auto 0.3 % (0-2); Eosinophils Absolute Auto 0 /uL (0-450); Hematocrit 38.2 % (36-46); Hemoglobin 12.5 g/dL (12.0-16.0); Lymphocytes Absolute Auto 400 /uL (1100-4500); Lymphocytes Percent Auto 4.6 % (25-40); Mean Corpuscular HGB Conc 32.6 % (30-36); Mean Corpuscular Volume 73.6 fL (80-100); Monocytes Absolute Auto 400 /uL (0-900); Neutrophils Absolute Auto 8800 /uL (1500-7000); Neutrophils Percent Auto 91.1 % (50-75); Platelet Count 401 X10^3/uL (150-400); Red Cell Distribution Width 20.1 % (11.6-14.8); White Blood Cell Count 9.6 X10^3/uL (4.5-11.0)
[2023-07-28 06:13] LABS: BUN Creatinine Ratio 34.3 (6-22); Blood Urea Nitrogen 23 mg/dL (7-17); Calcium 8.7 mg/dL (8.4-10.2); Carbon Dioxide 31 mmol/L (22-32); Chloride 94 mmol/L (98-107); Estimated Glomerular Filt Rate > 60 mL/min (>60); Glucose 130 mg/dL (80-110); HEMOLYSIS < 15 (0-50); Potassium 4.2 mmol/L (3.4-5.1); Sodium 130 mmol/L (137-145)
[2023-07-28 06:42] LABS: Anisocytosis 1+
[2023-07-28 06:43] LABS: Microcytosis 1+
[2023-07-28 08:00] VITALS: BP 136/79; PULSE 96; RESP 20; TEMP 36.2; O2SAT 97
[2023-07-28 09:21] VITALS: O2SAT 95
--- NOTE | 2023-07-28 10:03 | P.PN_ITS ---
Subjective Subjective Date Patient Seen: 07/28/23 Time Patient Seen: 10:03 Interval history: Minimal NGT output <100/12 hr. Abdominal pain manageable. Perhaps passing flatus. Exam Vital Signs (past 8 hours): - 07/28/23 04:00 07/28/23 08:00 07/28/23 09:21 Temperature 96.7 F L 97.2 F L Pulse Rate 129 H 96 H Respiratory Rate 20 20 Blood Pressure 141/72 H 136/79 Pulse Oximetry 95 97 95 Oxygen Delivery Method Nasal Cannula Oxygen Flow Rate 2 2 2 Oxygen Delivery Method Nasal Cannula Oxygen Flow Rate 2 Narrative Exam Narrative: Gen-Elderly woman alert and oriented Abdomen-Soft appropriately tender Objective Labs 07/28/23 05:15 07/28/23 05:15 Labs: Laboratory Results - last 24 hr 07/27/23 07/28/23 07/28/23 20:19 05:15 05:15 WBC 9.6 RBC 5.20 Hgb 12.5 Hct 38.2 MCV 73.6 L MCH 24.0 L MCHC 32.6 RDW 20.1 H Plt Count 401 H Neut % (Auto) 91.1 H Lymph % (Auto) 4.6 L [place] % (Auto) 4.0 Eos % (Auto) 0.0 L Baso % (Auto) 0.3 Neut # (Auto) 8800 H Lymph # (Auto) 400 L [place] # (Auto) 400 Eos # (Auto) 0 Baso # (Auto) 0 RBC Morphology See below Anisocytosis 1+ H Microcytosis 1+ H Sodium 129 L 130 L Potassium 3.8 D 4.2 Chloride 91 L 94 L Carbon Dioxide 32 31 BUN 22 H 23 H Creatinine 0.53 0.67 Estimated GFR > 60 > 60 BUN/Creatinine Ratio 41.5 H 34.3 H Glucose 143 H 130 H Calcium 8.4 8.7 PFSH Medical History Acute respiratory failure with hypoxia Advanced directives, counseling/discussion Cataract Chronic headaches Empyema Exudative pleural effusion Family history of psychiatric disorder Fecal incontinence Hemorrhoids History of neutropenia History of osteomyelitis as a child History of osteopenia History of sepsis Medicare annual wellness visit, initial Osteopenia Thyroid nodule Tinnitus Urinary incontinence Surgical History History of hemorrhoidectomy Family History Father Alzheimers disease Mother COPD (chronic obstructive pulmonary disease) Sister Mental health problem Grandmother Mental health problem Social History (Reviewed 01/04/22 @ 19:15 by Dianne Roldan [facility]) marital status: details: She was in 1992 after her of prostate cancer. 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 travel history: other leisure activities: other seatbelt use: always water heater temp set < 120 deg: Yes working smoke detector in home: Yes fire extinguisher in home: Yes carbon monox detector in home: Yes firearms in home: No do you feel safe at home: No (When I leave home in different locations.) Smoking Status: Never smoker alcohol intake: current substance use type: amphetamines and prescription drug during the past year weight has: remained stable well-balanced diet: about half the time daily servings fruits/ve-4 caffeine: Yes (Rare/ 2 per month (soda), caffeine 2+ drinks per day) eating out: other Type(s) of exercise: walking frequency: other duration: 15-30 minutes/day additional social history: Lives by the [employer] walk and nafisa dogs when feeling well. Assessment & Plan Post-op Postoperative Procedures: Procedures Operation Date: 07/27/23 12:30 Actual Procedure Side Surgeon p Exploratory Laparotomy Venu Kaba MD s Oophorectomy Right Venu Kaba MD s Bladder Resection, Diverticulectomy Venu Kaba MD s right hemicolectomy Right Venu Kaba MD Postoperative status narrative: 77F POD 1 sp R hemicolectomy R oophorectomy and partial cystectomy for likely metastatic colon cancer -NGT removed -Start sips of clears -OOB -PT consult -Palliative care consult -Montano to remain for likely 4-6 weeks (partial cystectomy)
[2023-07-28] MEDS: PANTOPRAZOLE 40 MG VIAL IV ×2 (10:53→21:58)
--- NOTE | 2023-07-28 11:23 | CM.DPC ---
DCP Cont. Reviewed chart for updates post-surgery. Pt was found to have extensive metastatic colon cancer during surgery, and hospice was recommended/discussed w/family by surgeon. Met with pt at bedside to discuss hospice preferences. Pt presents today as much less alert, flat affect, was able to express wanting [facility] as her choice for care. Faxed clinicals and referral to [facility]. ARMORED CAR GUARD AND DRIVER attempted to call son, Moises, however neither phone numbers were working. Left the [facility] brochure with pt at her bedside table. DCP will continue to monitor and assist with further teaching re: d/c and hospice as needed.
[2023-07-28 12:00] VITALS: BP 129/79; PULSE 126; RESP 20; TEMP 36.3; O2SAT 94
[2023-07-28] MEDS: AZITHROMYCIN 500 MG in DEXTROSE 5% IN WATER 250 ML 250 MG IV (15:33)
[2023-07-28] MEDS: ENOXAPARIN 30 MG/0.3 ML SYRINGE SUBCUT (15:34)
--- NOTE | 2023-07-28 15:43 | PM.PN.1 ---
Subjective Subjective Interval history: Patient processing her cancer diagnosis. She is in talks with her son about next steps, and possibly hospice. Advancing diet as NG tube is out. Exam Vital Signs (past 8 hours): - 07/28/23 08:00 07/28/23 09:21 07/28/23 12:00 Temperature 97.2 F L 97.4 F L Pulse Rate 96 H 126 H Respiratory Rate 20 20 Blood Pressure 136/79 129/79 Pulse Oximetry 97 95 94 Oxygen Delivery Method Nasal Cannula Oxygen Flow Rate 2 2 Oxygen Delivery Method Nasal Cannula Oxygen Flow Rate 2 Narrative Exam Narrative: GEN: no acute distress, hard of hearing HEENT: moist mucous membranes, PERRL NECK: trachea midline, no JVD CV: regular rate and rhythm, no murmurs PULM: clear bilaterally ABD: soft, nontender, distended, rare BT's, no organomegaly EXT: warm and well perfused with no edema NEURO: awake, alert, oriented, no focal deficits Objective Labs 07/28/23 05:15 07/28/23 05:15 Labs: Laboratory Results - last 24 hr 07/27/23 07/28/23 07/28/23 20:19 05:15 05:15 WBC 9.6 RBC 5.20 Hgb 12.5 Hct 38.2 MCV 73.6 L MCH 24.0 L MCHC 32.6 RDW 20.1 H Plt Count 401 H Neut % (Auto) 91.1 H Lymph % (Auto) 4.6 L [place] % (Auto) 4.0 Eos % (Auto) 0.0 L Baso % (Auto) 0.3 Neut # (Auto) 8800 H Lymph # (Auto) 400 L [place] # (Auto) 400 Eos # (Auto) 0 Baso # (Auto) 0 RBC Morphology See below Anisocytosis 1+ H Microcytosis 1+ H Sodium 129 L 130 L Potassium 3.8 D 4.2 Chloride 91 L 94 L Carbon Dioxide 32 31 BUN 22 H 23 H Creatinine 0.53 0.67 Estimated GFR > 60 > 60 BUN/Creatinine Ratio 41.5 H 34.3 H Glucose 143 H 130 H Calcium 8.4 8.7 PFSH Medical History Acute respiratory failure with hypoxia Advanced directives, counseling/discussion Cataract Chronic headaches Empyema Exudative pleural effusion Family history of psychiatric disorder Fecal incontinence Hemorrhoids History of neutropenia History of osteomyelitis as a child History of osteopenia History of sepsis Medicare annual wellness visit, initial Osteopenia Thyroid nodule Tinnitus Urinary incontinence Surgical History History of hemorrhoidectomy Family History Father Alzheimers disease Mother COPD (chronic obstructive pulmonary disease) Sister Mental health problem Grandmother Mental health problem Social History marital status: details: She was in 1992 after her of prostate cancer. number of children: 1 household members: children pets and animals: Yes (3/dogs, 4/cats, 2/turtles) education level: master's degree occupational status: employed [employer]: [employer] travel history: other leisure activities: other seatbelt use: always water heater temp set < 120 deg: Yes working smoke detector in home: Yes fire extinguisher in home: Yes carbon monox detector in home: Yes firearms in home: No do you feel safe at home: No (When I leave home in different locations.) Smoking Status: Never smoker alcohol intake: current substance use type: amphetamines and prescription drug during the past year weight has: remained stable well-balanced diet: about half the time daily servings fruits/ve-4 caffeine: Yes (Rare/ 2 per month (soda), caffeine 2+ drinks per day) eating out: other Type(s) of exercise: walking frequency: other duration: 15-30 minutes/day additional social history: Lives by the [facility] and nafisa dogs when feeling well. Assessment & Plan Assessment & Plan narrative: # SBO 2/2 large abdominal tumor s/p resection -CT abdomen showed dilated loops of bowel with transition point at cecum, unclear cause is patient denies abdominal surgeries in past -general surgery consulted and took for ex-lap on 07/27 finding large abd mass adherent to bowel, bladder and ovary. This was all resected with anastamosis of bowel. -NG now out, advancing diet per gen surg -hospice discussed given new cancer finding, patient and family discussing this # acute hypoxic respiratory failure -likely secondary to pneumonia, requiring 4-6L as sats were down to 83% -wean O2 as able # community-acquired pneumonia -chest x-ray with bilateral infiltrates -continue Rocephin and azithromycin IV -obtain sputum culture if able # ADHD -hold home Adderall while NPO # anxiety -Ativan IV as needed Code status is full code. DVT prophylaxis with SCDs. Proxy is son. I have reviewed home meds and used all available resources to reconcile the home meds. Dispo: Pending advancement of diet and possible hospice.
--- NOTE | 2023-07-28 16:30 | PT.IIE ---
Current Diagnoses Unspecified intestinal obstruction, unspecified as to partial versus complete obstruction (07/26/23) Surgery Performed Operation Date: 07/27/23 12:30 Actual Procedures p Exploratory Laparotomy - Venu Kaba MD s Oophorectomy(Right) - MD mert Blank Bladder Resection, Diverticulectomy - MD mert Blank right hemicolectomy(Right) - Venu Kaba MD Surgical History (Last Reviewed 06/24/23 @ 10:54 by WALTER Flores) History of hemorrhoidectomy Medical History (Last Reviewed 06/24/23 @ 10:54 by WALTER Flores) Acute respiratory failure with hypoxia Advanced directives, counseling/discussion Cataract Chronic headaches Empyema Exudative pleural effusion Family history of psychiatric disorder Fecal incontinence Hemorrhoids History of neutropenia History of osteomyelitis as a child History of osteopenia History of sepsis Medicare annual wellness visit, initial Osteopenia Thyroid nodule Tinnitus Urinary incontinence Physical Therapy Inpatient Evaluation/Re-Eval M1 PT/OT-IP Prior Functional Status Start: 07/28/23 17:25 Freq: NEEDED Status: Active Protocol: Document 07/28/23 16:30 AB (Rec: 07/28/23 17:44 AB [id number]) Medical Review Prior Functional Status Medical History Reviewed Yes Communication pt with confusion; needs repetions and max cues to respond Mobility and Gait pt stated that she is modified independent with all mobilities and ambulation without AD but occasionally uses a SPC Social History Household Members children Living Arrangements House Number of Floors (Floors) Two Floors Number of Stairs To Enter/Railing? pt stays on the main level of the house has 4 steps B rails to enter Home Environment Standard Height Toilet,Walk in Shower,Built-In Shower Seat Home Equipment Front Wheel Walker,Straight Cane,Grab Bars Near Toilet, Grab Bars In Shower Additional Social History Comment pt stated that her son Moises will be helping her at home M2 PT-IP Current Condition Start: 07/28/23 17:25 Freq: NEEDED Status: Active Protocol: Document 07/28/23 16:30 AB (Rec: 07/28/23 17:44 AB [id number]) Physical Therapy Current Condition Current Condition Evaluation Date 07/28/23 Treatment Diagnosis SBO s/p hemicolectomy; metastatic colon CA; difficulty in walking Onset Date 07/26/23 M3 PT-IP Subjective Start: 07/28/23 17:25 Freq: NEEDED Status: Active Protocol: Document 07/28/23 16:30 AB (Rec: 07/28/23 17:44 AB [id number]) Subjective Physical Therapy Visit Type Type Initial Evaluation Visit Start Time 16:30 Visit Stop Time 17:25 Total Visit Minutes 55 Number of EXECUTIVE ASST Visits 0 Physical Therapy Visit Comments Patient Comments with confusion but agreed to get out of the bed Therapy Pain Assessment Pain When Pain Assessed At Rest Location abdomen Scale Used pain scale not stated M4 PT-IP Mobility and Gait Start: 07/28/23 17:25 Freq: NEEDED Status: Active Protocol: Document 07/28/23 16:30 AB (Rec: 07/28/23 17:44 AB [id number]) PT-Bed Mobility Assessment Rolling Type of Rolling Log Rolling Level of Assist Maximal Assistance,1 Person Assistance Supine to Sit Supine to Sit Maximum Assistance,1 Person Assistance,2 Person Assistance ,Bedrails Scooting Scooting to Edge of Bed Dependent PT-Transfer Assessment Sit to and From Stand Sit to and from Stand Maximum Assistance,1 Person Assistance,2 Person Assistance ,Use of Upper Extremities Equipment Transfer Assistive Device Gait Belt,Front Wheeled Walker Orthotic/Prosthetic Devices or Brace: No Transfers Transfer Destination Chair Transfer Technique Stand Step Pivot Transfer Ability Level of Assist Maximum Assistance,1 Person Assistance,2 Person Assistance ,Use of Upper Extremities Comments Mobility Comments pt supine in bed. BP: 122/78 O2 sat at RA 94-97% CT: 109. educated pt regarding abdominal precautions and log roll bed mobility but pt with confusion and requires max cues with all tasks. requires increase time to complete all tasks. completed log roll supine to sit max A x 1 and max cues. required mod to max A for sitting balance with increase posterior trunk lean. c/o slight dizziness. BP in sittin/71. rechecked after ~ 1 min: 109/73. completed sit to stand max A x 1-2 and max cues. max A for standing balance using FWW for support. completed step transfer to chair using FWW max a x 2 and max cues. PT needing to direct trunk towards the chair, weight shift pt and assist with FWW during transfers. positioned pt on the chair. call light and table placed within reach. nurse in room to assist. Gait Assessment Comments Gait Comments unable at this time PT-Balance Assessment Sitting Balance and Reactions Static Sitting Balance Ability Fair Dynamic Sitting Balance Ability Poor Standing Balance and Reactions Static Standing Balance Ability Poor Dynamic Standing Balance Ability Poor Device Used FWW M5 PT-IP Objective Assessments Start: 07/28/23 17:25 Freq: NEEDED Status: Active Protocol: Document 07/28/23 16:30 AB (Rec: 07/28/23 17:44 AB [id number]) Orientation Orientation/Cognition Level of Alertness Confusional State Orientation Name,Place,Situation Language Function Ability Hard of Hearing Safety Awareness Decreased Safety Awareness Memory Description 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,Higher Education Administrator Impaired Gross Range of Motion Lower Extremity ROM Assessment Within Functional Limits Strength Lower Extremity Strength Hip 4-/5 Knee 4-/5 Sensation Assessment Sensation Gross Sensation WNL Muscle Tone Muscle Tone WNL Yes M6 PT-IP Treatment Start: 07/28/23 17:25 Freq: NEEDED Status: Active Protocol: Document 07/28/23 16:30 AB (Rec: 07/28/23 17:44 AB [id number]) Physical Therapy Treatment Education Education Provided Precautions,Post-Op Packet, Safety M7 PT-IP Assessment and Plan Start: 07/28/23 17:25 Freq: NEEDED Status: Active Protocol: Document 07/28/23 16:30 AB (Rec: 07/28/23 17:44 AB [id number]) PT Summary Assessment and Plan Potential Rehabilitation Potential Fair Status of Condition at Evaluation Evolving Summary Impairments Pain,ROM,Strength,Balance, Coordination,Sensation,Tone, Cognition,Bed Mobility, Transfers,Gait,Activity Tolerance Assessment Summary pt presented to the ED with c/ o abdominal pain with constipation. pt admitted for SBO and underwent hemicolectomy and partial cystectomy. Pt found to have colon CA with mets. PT eval order received but from EMR, stated that pt will be going to go home with hospice care. Talked to hospitalist and stated that the surgeon stated that pt will be going on hospice but per pt, she might consider other options. At this time, pt is uncertain if she is going on hospice care or not. PT eval completed. pt requiring max A x 1-2 with bed mobility and max A x 2 for transfer using FWW and is unable to ambulate at this time. will need to f/u on hospice POC but if pt decides not to pursue, pt will need SNF rehab to improve overall strength and mobility. Goals Bed Mobility Goal Minimal Assistance Transfer Goal Minimal Assistance,Front Wheeled Walker Gait Goal Minimal Assistance,Front Wheel Walker Gait Distance 25 Other Goals improve bed mobility, transfers , ambulation using FWW 100 ft SBA up/down 4 steps B rails CGA Days to Meet Goals 10 Frequency of Treatment Frequency Of Treatment Once a Day Treatment Plan Physical Therapy Treatment Plan Bed Mobility Training,Transfer Training,Gait Training, Therapeutic Exercise,Balance Retraining,Post Op Education, Discharge Planning,Hot or Cold Pack,Neuromuscular Re-ed, Coordination Retraining,Manual Therapy Precautions Abdominal Surgery Precautions Log Roll,Lifting Restrictions, Gait Belt above Incisional Area Recommendations To Nursing Amount of Assist Needed Mechanical Lift Discharge Recommendations PT Discharge Recommendations SNF Rehab Transportation Needs at Discharge Wheelchair/Cabulance,Stretcher /Ambulance
[2023-07-28] MEDS: cefTRIAXone 1,000 MG in SODIUM CHLORIDE 0.9% 100 ML 200 MG IV (18:54)
--- NOTE | 2023-07-28 19:37 | PC.NURSE ---
Pt A&Ox3 with periods of intermittent confusion about situation. Pleasant, compliant, and lucid for most of shift, with delay in following instructions. HR tachycardic 100s-120s. NG tube removed by surgeon. Per verbal order, pt given sips of water, tolerated well. Diet progressed to clear liquids. Urine in [place] bag brown but urine in [place] tube clear, yellow. Up to chair with PT per pt request. At 1855, left AC IV bleeding, leaking. IV infusion paused. Pt removed IV with RN out of room, but tolerated well, catheter intact.
[2023-07-28 20:20] VITALS: BP 103/40; PULSE 105; RESP 16; TEMP 37.3; O2SAT 93
[2023-07-29] MEDS: LORazepam 2 MG/ML INJ 0.5 MG IV ×2 (00:16→18:50)
[2023-07-29 05:51] LABS: Add Manual Diff / Slide Review NO; Basophils Absolute Auto 0 /uL (0-100); Basophils Percent Auto 0.2 % (0-2); Eosinophils Absolute Auto 0 /uL (0-450); Hematocrit 32.4 % (36-46); Hemoglobin 10.4 g/dL (12.0-16.0); Lymphocytes Absolute Auto 700 /uL (1100-4500); Lymphocytes Percent Auto 6.1 % (25-40); Mean Corpuscular HGB Conc 32.1 % (30-36); Mean Corpuscular Hemoglobin 23.7 PG (26-34); Mean Corpuscular Volume 73.8 fL (80-100); Monocytes Absolute Auto 700 /uL (0-900); Monocytes Percent Auto 6.6 % (3-14); Neutrophils Absolute Auto 9900 /uL (1500-7000); Neutrophils Percent Auto 87.1 % (50-75); Platelet Count 340 X10^3/uL (150-400); Red Blood Cell Count 4.38 X10^6/uL (4.0-5.2); Red Cell Distribution Width 20.3 % (11.6-14.8); White Blood Cell Count 11.4 X10^3/uL (4.5-11.0)
[2023-07-29 06:10] LABS: BUN Creatinine Ratio 36.8 (6-22); Blood Urea Nitrogen 21 mg/dL (7-17); Calcium 8.1 mg/dL (8.4-10.2); Carbon Dioxide 28 mmol/L (22-32); Chloride 96 mmol/L (98-107); Estimated Glomerular Filt Rate > 60 mL/min (>60); Glucose 103 mg/dL (80-110); HEMOLYSIS < 15 (0-50); Potassium 3.9 mmol/L (3.4-5.1); Sodium 128 mmol/L (137-145)
[2023-07-29 06:24] VITALS: BP 131/58; PULSE 95; RESP 18; TEMP 35.8; O2SAT 93
[2023-07-29 06:29] LABS: Anisocytosis 1+; Microcytosis 1+
--- NOTE | 2023-07-29 07:20 | P.PN_ITS ---
Subjective Subjective Interval history: Patient's family present in room. A 16 min discussion was had with them all including patient about GOC and if she wants to pursue hospice or not. She explained that she would rather find out her options in terms of treatment before committing to doing nothing. Family will call for oncology referral from PCP and to f/u on path report. Likely to [facility] [facility]. Exam Vital Signs (past 8 hours): - 07/29/23 06:24 Temperature 96.5 F L Pulse Rate 95 H Respiratory Rate 18 Blood Pressure 131/58 L Pulse Oximetry 93 Oxygen Flow Rate 0 Oxygen Delivery Method Nasal Cannula Oxygen Flow Rate 0 Narrative Exam Narrative: GEN: no acute distress, hard of hearing. Fatigued. HEENT: moist mucous membranes, PERRL NECK: trachea midline, no JVD CV: regular rate and rhythm, no murmurs PULM: clear bilaterally ABD: soft, nontender, distended, rare BT's, no organomegaly EXT: warm and well perfused with no edema NEURO: awake, alert, oriented, no focal deficits Objective Labs 07/29/23 05:35 07/29/23 05:35 Labs: Laboratory Results - last 24 hr 07/29/23 07/29/23 05:35 05:35 WBC 11.4 H RBC 4.38 Hgb 10.4 L Hct 32.4 L MCV 73.8 L MCH 23.7 L MCHC 32.1 RDW 20.3 H Plt Count 340 Neut % (Auto) 87.1 H Lymph % (Auto) 6.1 L [place] % (Auto) 6.6 Eos % (Auto) 0.0 L Baso % (Auto) 0.2 Neut # (Auto) 9900 H Lymph # (Auto) 700 L [place] # (Auto) 700 Eos # (Auto) 0 Baso # (Auto) 0 RBC Morphology See below Anisocytosis 1+ H Microcytosis 1+ H Sodium 128 L Potassium 3.9 Chloride 96 L Carbon Dioxide 28 BUN 21 H Creatinine 0.57 Estimated GFR > 60 BUN/Creatinine Ratio 36.8 H Glucose 103 Calcium 8.1 L PFSH Medical History Acute respiratory failure with hypoxia Advanced directives, counseling/discussion Cataract Chronic headaches Empyema Exudative pleural effusion Family history of psychiatric disorder Fecal incontinence Hemorrhoids History of neutropenia History of osteomyelitis as a child History of osteopenia History of sepsis Medicare annual wellness visit, initial Osteopenia Thyroid nodule Tinnitus Urinary incontinence Surgical History History of hemorrhoidectomy Family History Father Alzheimers disease Mother COPD (chronic obstructive pulmonary disease) Sister Mental health problem Grandmother Mental health problem Social History marital status: details: She was in 1992 after her of prostate cancer. number of children: 1 household members: children pets and animals: Yes (3/dogs, 4/cats, 2/turtles) education level: master's degree occupational status: employed [employer]: [employer] travel history: other leisure activities: other seatbelt use: always water heater temp set < 120 deg: Yes working smoke detector in home: Yes fire extinguisher in home: Yes carbon monox detector in home: Yes firearms in home: No do you feel safe at home: No (When I leave home in different locations.) Smoking Status: Never smoker alcohol intake: current substance use type: amphetamines and prescription drug during the past year weight has: remained stable well-balanced diet: about half the time daily servings fruits/ve-4 caffeine: Yes (Rare/ 2 per month (soda), caffeine 2+ drinks per day) eating out: other Type(s) of exercise: walking frequency: other duration: 15-30 minutes/day additional social history: Lives by the [place] walk and nafisa dogs when feeling well. Assessment & Plan Assessment & Plan narrative: # SBO 2/2 large abdominal tumor s/p resection -CT abdomen showed dilated loops of bowel with transition point at cecum, unclear cause is patient denies abdominal surgeries in past -general surgery consulted and took for ex-lap on 07/27 finding large abd mass adherent to bowel, bladder and ovary. This was all resected with anastamosis of bowel. -NG now out, advancing diet per gen surg -hospice discussed given new cancer finding, but patient wants to know her options by meeting with oncology first -PCP to place referral to [facility] # acute hypoxic respiratory failure, resolved -likely secondary to pneumonia, requiring 4-6L as sats were down to 83% -now off O2 # community-acquired pneumonia -chest x-ray with bilateral infiltrates -continue Rocephin and azithromycin IV -obtain sputum culture if able # ADHD -hold home Adderall while NPO # anxiety -Ativan IV as needed Code status is full code. DVT prophylaxis with SCDs. Proxy is son. I have reviewed home meds and used all available resources to reconcile the home meds. Dispo: Pending advancement of diet and SNF placement.
[2023-07-29 07:50] VITALS: BP 115/50; PULSE 101; RESP 16; TEMP 36.3; O2SAT 93
[2023-07-29] MEDS: HYDROMORPHONE 0.5 MG INJ IV ×3 (07:56→18:50)
[2023-07-29] MEDS: PANTOPRAZOLE 40 MG VIAL IV (08:00)
[2023-07-29] MEDS: ENOXAPARIN 30 MG/0.3 ML SYRINGE SUBCUT (08:00)
--- NOTE | 2023-07-29 09:45 | P.PN_ITS ---
Subjective Subjective Date Patient Seen: 07/29/23 Time Patient Seen: 09:46 Interval history: No new events. Tolerating clear liquids Exam Vital Signs (past 8 hours): - 07/29/23 06:24 07/29/23 07:50 Temperature 96.5 F L 97.3 F L Pulse Rate 95 H 101 H Respiratory Rate 18 16 Blood Pressure 131/58 L 115/50 L Pulse Oximetry 93 93 Oxygen Flow Rate 0 0 Oxygen Delivery Method Nasal Cannula Oxygen Flow Rate 0 Narrative Exam Narrative: Gen-Adult woman alert and oriented no distress Abdomen-Soft appropriately tender to palpation Objective Labs 07/29/23 05:35 07/29/23 05:35 Labs: Laboratory Results - last 24 hr 07/29/23 07/29/23 05:35 05:35 WBC 11.4 H RBC 4.38 Hgb 10.4 L Hct 32.4 L MCV 73.8 L MCH 23.7 L MCHC 32.1 RDW 20.3 H Plt Count 340 Neut % (Auto) 87.1 H Lymph % (Auto) 6.1 L [place] % (Auto) 6.6 Eos % (Auto) 0.0 L Baso % (Auto) 0.2 Neut # (Auto) 9900 H Lymph # (Auto) 700 L [place] # (Auto) 700 Eos # (Auto) 0 Baso # (Auto) 0 RBC Morphology See below Anisocytosis 1+ H Microcytosis 1+ H Sodium 128 L Potassium 3.9 Chloride 96 L Carbon Dioxide 28 BUN 21 H Creatinine 0.57 Estimated GFR > 60 BUN/Creatinine Ratio 36.8 H Glucose 103 Calcium 8.1 L PFSH Medical History Acute respiratory failure with hypoxia Advanced directives, counseling/discussion Cataract Chronic headaches Empyema Exudative pleural effusion Family history of psychiatric disorder Fecal incontinence Hemorrhoids History of neutropenia History of osteomyelitis as a child History of osteopenia History of sepsis Medicare annual wellness visit, initial Osteopenia Thyroid nodule Tinnitus Urinary incontinence Surgical History History of hemorrhoidectomy Family History Father Alzheimers disease Mother COPD (chronic obstructive pulmonary disease) Sister Mental health problem Grandmother Mental health problem Social History marital status: details: She was in 1992 after her of prostate cancer. number of children: 1 household members: children pets and animals: Yes (3/dogs, 4/cats, 2/turtles) education level: master's degree occupational status: employed [employer]: [employer] travel history: other leisure activities: other seatbelt use: always water heater temp set < 120 deg: Yes working smoke detector in home: Yes fire extinguisher in home: Yes carbon monox detector in home: Yes firearms in home: No do you feel safe at home: No (When I leave home in different locations.) Smoking Status: Never smoker alcohol intake: current substance use type: amphetamines and prescription drug during the past year weight has: remained stable well-balanced diet: about half the time daily servings fruits/ve-4 caffeine: Yes (Rare/ 2 per month (soda), caffeine 2+ drinks per day) eating out: other Type(s) of exercise: walking frequency: other duration: 15-30 minutes/day additional social history: Lives by the [employer] walk and nafisa dogs when feeling well. Assessment & Plan Post-op Postoperative Procedures: Procedures Operation Date: 07/27/23 12:30 Actual Procedure Side Surgeon p Exploratory Laparotomy Venu Kaba MD s Oophorectomy Right Venu Kaba MD s Bladder Resection, Diverticulectomy Venu Kaba MD s right hemicolectomy Right Venu Kaba MD Postoperative status narrative: 77F POD2 sp R hemicolectomy, small bowel resection, partial cystectomy for widely metastatic colon cancer. Bowel are beginning to function. -Soft diet -Extensive conversation with patient and her sons Nikita and Moises regarding diagnosis and goals of care. In agreement for home with hospice services next week. Code status will need to be changed. -SCDs and pLovenox
--- NOTE | 2023-07-29 11:38 | PT.IPTN ---
Current Diagnoses Unspecified intestinal obstruction, unspecified as to partial versus complete obstruction (07/26/23) Surgery Performed Operation Date: 07/27/23 12:30 Actual Procedures p Exploratory Laparotomy - Venu Kaba MD s Oophorectomy(Right) - Venu Kaba MD s Bladder Resection, Diverticulectomy - MD mert Blank right hemicolectomy(Right) - Venu Kaba MD Physical Therapy Treatment Note M2 PT-IP Current Condition Start: 07/28/23 17:25 Freq: NEEDED Status: Active Protocol: Document 07/28/23 16:30 AB (Rec: 07/28/23 17:44 AB [id number]) Physical Therapy Current Condition Current Condition Evaluation Date 07/28/23 Treatment Diagnosis SBO s/p hemicolectomy; metastatic colon CA; difficulty in walking Onset Date 07/26/23 M3 PT-IP Subjective Start: 07/28/23 17:25 Freq: NEEDED Status: Active Protocol: Document 07/29/23 11:18 KS (Rec: 07/29/23 12:48 KS [id number]) Subjective Physical Therapy Visit Type Type Treatment Note Visit Start Time 11:18 Visit Stop Time 11:38 Total Visit Minutes 20 Notes PT present for assistance 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 Physical Therapy Visit Comments Patient Comments with confusion but agreed to get out of the bed Therapy Pain Assessment Pain When Pain Assessed At Rest Pain Present Pain Present Pain Reported Location abdomen Scale Used pain scale not stated M4 PT-IP Mobility and Gait Start: 07/28/23 17:25 Freq: NEEDED Status: Active Protocol: Document 07/29/23 11:18 KS (Rec: 07/29/23 12:48 KS [id number]) PT-Bed Mobility Assessment Rolling Type of Rolling Log Rolling Level of Assist Maximal Assistance,1 Person Assistance Supine to Sit Supine to Sit Maximum Assistance,1 Person Assistance Scooting Scooting to Edge of Bed Dependent PT-Transfer Assessment Sit to and From Stand Sit to and from Stand Maximum Assistance,1 Person Assistance,2 Person Assistance ,Use of Upper Extremities Equipment Transfer Assistive Device Gait Belt,Front Wheeled Walker Orthotic/Prosthetic Devices or Brace: No Transfers Transfer Destination Chair Transfer Technique Squat Pivot Transfer Ability Level of Assist Maximum Assistance,1 Person Assistance,2 Person Assistance ,Use of Upper Extremities Comments Mobility Comments Pt in bed upon arrival, seemingly confused but agreeable to transfer to chair . PT Sha present for additional assistance. Max A for logroll and sup<>sit as well as scooting EOB. Pt able to use hand rail to maintain seated balance but still occasionally needing Min A to maintain. Pt completed sit<> stand w/ FWW and Max A but was unable to maintain standing balance while advancing feet forward to step towards chair and was leaning backwards against bed frame for support. Pt sat down and then completed squat pivot transfer from raised bed to chair w/ Max A. Max A x2 for scooting back in chair. Pt too fatigued to perform LE exercises. Left in chair w/ all needs in reach and chair alarm on. Gait Assessment Comments Gait Comments unable at this time PT-Balance Assessment Sitting Balance and Reactions Static Sitting Balance Ability Fair Dynamic Sitting Balance Ability Fair Standing Balance and Reactions Static Standing Balance Ability Poor Dynamic Standing Balance Ability Poor Device Used FWW M5 PT-IP Objective Assessments Start: 07/28/23 17:25 Freq: NEEDED Status: Active Protocol: Document 07/28/23 16:30 AB (Rec: 07/28/23 17:44 AB [id number]) Orientation Orientation/Cognition Level of Alertness Confusional State Orientation Name,Place,Situation Language Function Ability Hard of Hearing Safety Awareness Decreased Safety Awareness Memory Description 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,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 Third Impaired Gross Range of Motion Lower Extremity ROM Assessment Within Functional Limits Strength Lower Extremity Strength Hip 4-/5 Knee 4-/5 Sensation Assessment Sensation Gross Sensation WNL Muscle Tone Muscle Tone WNL Yes M6 PT-IP Treatment Start: 07/28/23 17:25 Freq: NEEDED Status: Active Protocol: Document 07/29/23 11:18 KS (Rec: 07/29/23 12:48 KS [id number]) Physical Therapy Treatment Education Education Provided Precautions,Post-Op Packet, Safety M7 PT-IP Assessment and Plan Start: 07/28/23 17:25 Freq: NEEDED Status: Active Protocol: Document 07/29/23 11:18 KS (Rec: 07/29/23 12:48 KS [id number]) PT Summary Assessment and Plan Potential Rehabilitation Potential Fair Summary Impairments Pain,ROM,Strength,Balance, Coordination,Sensation,Tone, Cognition,Bed Mobility, Transfers,Gait,Activity Tolerance Progress Towards Goals Slow Progress due to Pain,Slow Progress due to Medical Issues,Slow Progress due to Activity Tolerance Assessment Summary Pt able to make some progress today, showing increased ability to maintain seated balance w/ less assistance overall. However, unable to perform stand step pivot transfer w/ FWW and instead completed squat pivot w/ Max A . Pt reported high level of fatigue following transfer. Per rounds, pt not currently wanting hospice and wants to pursue other options. At this time, she will require SNF to improve strength and functional mobility. Goals Bed Mobility Goal Minimal Assistance Transfer Goal Minimal Assistance,Front Wheeled Walker Gait Goal Minimal Assistance,Front Wheel Walker Gait Distance 25 Other Goals improve bed mobility, transfers , ambulation using FWW 100 ft SBA up/down 4 steps B rails CGA Days to Meet Goals 10 Frequency of Treatment Frequency Of Treatment Once a Day Treatment Plan Physical Therapy Treatment Plan Bed Mobility Training,Transfer Training,Gait Training, Therapeutic Exercise,Balance Retraining,Post Op Education, Discharge Planning,Hot or Cold Pack,Neuromuscular Re-ed, Coordination Retraining,Manual Therapy Precautions Abdominal Surgery Precautions Log Roll,Lifting Restrictions, Gait Belt above Incisional Area Recommendations To Nursing Amount of Assist Needed Mechanical Lift Discharge Recommendations PT Discharge Recommendations SNF Rehab Transportation Needs at Discharge Wheelchair/Cabulance,Stretcher /Ambulance
--- NOTE | 2023-07-29 14:34 | PC.NURSE ---
Assisted pt from chair back into the bed. Pt was a max 2 person assist. Pt needed lots verbal cuing and tapping on her legs to get her to move a leg back or to the side.
--- NOTE | 2023-07-29 15:19 | CM.DPNOTE ---
CM team recieved call [facility] She states she will have a phone consult with patients two sons today to determine intake. DC home with hospice is Plan A. As per discussion with Dr. Bhardwaj in rounds patient may want and oncology referral/evaluation to explore options. As per PT notes she is 2 person assist and will require SNF level rehab at [place]. CM team following for progression of care to meet patients goals.
[2023-07-29] MEDS: LORazepam 0.5 MG TABLET PO (15:55)
[2023-07-29 18:00] VITALS: BP 101/50; PULSE 100; RESP 18; TEMP 36.6; O2SAT 95
[2023-07-29] MEDS: cefTRIAXone 1,000 MG in SODIUM CHLORIDE 0.9% 100 ML 200 MG IV (18:51)
[2023-07-29 20:25] VITALS: BP 107/54; PULSE 114; RESP 18; TEMP 36.6; O2SAT 95
[2023-07-30 05:44] LABS: Add Manual Diff / Slide Review NO; Basophils Absolute Auto 0 /uL (0-100); Basophils Percent Auto 0.1 % (0-2); Eosinophils Absolute Auto 0 /uL (0-450); Hematocrit 29.1 % (36-46); Hemoglobin 9.7 g/dL (12.0-16.0); Lymphocytes Absolute Auto 600 /uL (1100-4500); Lymphocytes Percent Auto 7.3 % (25-40); Mean Corpuscular HGB Conc 33.3 % (30-36); Mean Corpuscular Hemoglobin 24.2 PG (26-34); Mean Corpuscular Volume 72.7 fL (80-100); Monocytes Absolute Auto 800 /uL (0-900); Monocytes Percent Auto 9.9 % (3-14); Neutrophils Absolute Auto 6500 /uL (1500-7000); Neutrophils Percent Auto 82.7 % (50-75); Platelet Count 314 X10^3/uL (150-400); Red Cell Distribution Width 20.6 % (11.6-14.8); White Blood Cell Count 7.9 X10^3/uL (4.5-11.0)
[2023-07-30 06:01] LABS: Blood Urea Nitrogen 13 mg/dL (7-17); Calcium 8.1 mg/dL (8.4-10.2); Carbon Dioxide 29 mmol/L (22-32); Chloride 96 mmol/L (98-107); Estimated Glomerular Filt Rate > 60 mL/min (>60); Glucose 103 mg/dL (80-110); HEMOLYSIS < 15 (0-50); Potassium 3.4 mmol/L (3.4-5.1); Sodium 128 mmol/L (137-145)
[2023-07-30 06:24] LABS: Anisocytosis 1+; Microcytosis 1+
[2023-07-30 08:00] VITALS: BP 125/66; PULSE 101; RESP 18; TEMP 36.4; O2SAT 92
[2023-07-30] MEDS: ENOXAPARIN 30 MG/0.3 ML SYRINGE SUBCUT (10:25)
[2023-07-30] MEDS: PANTOPRAZOLE 40 MG VIAL IV ×2 (10:26→21:38)
[2023-07-30] MEDS: SODIUM CHLORIDE 0.9% FLUSH 10 ML IV ×2 (10:27→21:38)
[2023-07-30] MEDS: POTASSIUM CHLORIDE 20 MEQ TAB 40 MEQ PO (10:27)
--- NOTE | 2023-07-30 11:13 | CM.DPC ---
DCP Note Cont. Reviewed EMR and team rounds for status updates. Pt/family have decided to wait on hospice, and are choosing to consult w/an Oncologist prior to committing to hospice care. Pt's son, Moises, called pt's PCP, requested that a referral be placed at [facility] for the consult visit. Pt/family have chosen [facility] as their SNF placement for care in the meantime. MANAGER SPA called Melanie at [facility] who is reviewing. PASSAR completed, it's with the DCP/facesheet, will need to be sent at time of D/C. Monitoring for [facility] acceptance.
--- NOTE | 2023-07-30 13:07 | PM.PN.1 ---
Subjective Subjective Date Patient Seen: 07/30/23 Time Patient Seen: 13:07 Interval history: Luis Mnauel is tolerating regular diet. Pain is well controlled. She did have some bowel movement. Exam Vital Signs (past 8 hours): - 07/30/23 08:00 Temperature 97.5 F L Pulse Rate 101 H Respiratory Rate 18 Blood Pressure 125/66 Pulse Oximetry 92 Oxygen Flow Rate 0 Oxygen Delivery Method Room Air Oxygen Flow Rate 0 Narrative Exam Narrative: Abdomen soft, distended, nontender Dressings in place Objective Labs 07/30/23 05:30 07/30/23 05:30 Labs: Laboratory Results - last 24 hr 07/26/23 07/30/23 07/30/23 11:57 05:30 05:30 WBC 7.9 RBC 4.00 Hgb 9.7 L Hct 29.1 L MCV 72.7 L MCH 24.2 L MCHC 33.3 RDW 20.6 H Plt Count 314 Neut % (Auto) 82.7 H Lymph % (Auto) 7.3 L [place] % (Auto) 9.9 Eos % (Auto) 0.0 L Baso % (Auto) 0.1 Neut # (Auto) 6500 Lymph # (Auto) 600 L [place] # (Auto) 800 Eos # (Auto) 0 Baso # (Auto) 0 RBC Morphology See below Anisocytosis 1+ H Microcytosis 1+ H Smear Path Review Sodium 128 L Potassium 3.4 Chloride 96 L Carbon Dioxide 29 BUN 13 Creatinine 0.42 L Estimated GFR > 60 BUN/Creatinine Ratio 31.0 H Glucose 103 Calcium 8.1 L PFSH Medical History Acute respiratory failure with hypoxia Advanced directives, counseling/discussion Cataract Chronic headaches Empyema Exudative pleural effusion Family history of psychiatric disorder Fecal incontinence Hemorrhoids History of neutropenia History of osteomyelitis as a child History of osteopenia History of sepsis Medicare annual wellness visit, initial Osteopenia Thyroid nodule Tinnitus Urinary incontinence Surgical History History of hemorrhoidectomy Family History Father Alzheimers disease Mother COPD (chronic obstructive pulmonary disease) Sister Mental health problem Grandmother Mental health problem Social History (Reviewed 01/04/22 @ 19:15 by Dianne Roldan [facility] marital status: details: She was in 1992 after her of prostate cancer. number of children: 1 household members: children pets and animals: Yes (3/dogs, 4/cats, 2/turtles) education level: master's degree occupational status: employed [employer]: Religious travel history: other leisure activities: other seatbelt use: always water heater temp set < 120 deg: Yes working smoke detector in home: Yes fire extinguisher in home: Yes carbon monox detector in home: Yes firearms in home: No do you feel safe at home: No (When I leave home in different locations.) Smoking Status: Never smoker alcohol intake: current substance use type: amphetamines and prescription drug during the past year weight has: remained stable well-balanced diet: about half the time daily servings fruits/ve-4 caffeine: Yes (Rare/ 2 per month (soda), caffeine 2+ drinks per day) eating out: other Type(s) of exercise: walking frequency: other duration: 15-30 minutes/day additional social history: Lives by the [employer] walk and nafisa dogs when feeling well. Assessment & Plan Assessment and plan (1) Small bowel obstruction: Status: Acute Plan Doing well We would like to see some more flatus and tolerating more diet before discharge Dr. Kaba will be back tomorrow to decide about a discharge plan.
--- NOTE | 2023-07-30 17:00 | PT.IPTN ---
Current Diagnoses Unspecified intestinal obstruction, unspecified as to partial versus complete obstruction (07/26/23) Surgery Performed Operation Date: 07/27/23 12:30 Actual Procedures p Exploratory Laparotomy - Venu Kaba MD s Oophorectomy(Right) - Venu Kaba MD s Bladder Resection, Diverticulectomy - MD mert Blank right hemicolectomy(Right) - Venu Kaba MD Physical Therapy Treatment Note M2 PT-IP Current Condition Start: 07/28/23 17:25 Freq: NEEDED Status: Active Protocol: Document 07/28/23 16:30 AB (Rec: 07/28/23 17:44 AB [id number]) Physical Therapy Current Condition Current Condition Evaluation Date 07/28/23 Treatment Diagnosis SBO s/p hemicolectomy; metastatic colon CA; difficulty in walking Onset Date 07/26/23 M3 PT-IP Subjective Start: 07/28/23 17:25 Freq: NEEDED Status: Active Protocol: Document 07/30/23 17:05 AB(2) (Rec: 07/30/23 17:18 AB(2) [id number]) Subjective Physical Therapy Visit Type Type Treatment Note Visit Start Time 14:35 Visit Stop Time 15:00 Total Visit Minutes 25 Physical Therapy Visit Comments Patient Comments Pt presents in bed with family /friends at bedside, and is agreeable to PT. Therapy Pain Assessment Pain When Pain Assessed At Rest Pain Present Pain Present Pain Reported Location abdomen Scale Used pain not stated M4 PT-IP Mobility and Gait Start: 07/28/23 17:25 Freq: NEEDED Status: Active Protocol: Document 07/30/23 17:05 AB(2) (Rec: 07/30/23 17:18 AB(2) [id number]) PT-Bed Mobility Assessment Rolling Type of Rolling Log Rolling Level of Assist Maximal Assistance,1 Person Assistance Supine to Sit Supine to Sit Maximum Assistance,1 Person Assistance,Head of Bed Elevated,Bedrails Scooting Scooting to Edge of Bed Maximum Assistance PT-Transfer Assessment Sit to and From Stand Sit to and from Stand Maximum Assistance,1 Person Assistance,Use of Upper Extremities Equipment Transfer Assistive Device Gait Belt,Front Wheeled Walker Orthotic/Prosthetic Devices or Brace: No Transfers Transfer Destination Chair Transfer Technique Stand Step Pivot Transfer Ability Level of Assist Maximum Assistance,1 Person Assistance,2 Person Assistance ,Use of Upper Extremities Comments Mobility Comments Pt continues to require maxA x1 for bed mobility due to weakness and difficulty following directions. Upon getting to edge of bed, pt performs STS with maxA x1, however has retro lean which requires maxA to correct and pt uses back of legs on bed to stabilize. Attempted to perform stand step pivot transfer with FWW however pt has difficulty following directions while maintaing standing balance. Pt reported feeling dizzy when standing, therefore sat at EOB. BP in sitting is 123/55 mmHg. Pt is allowed to rest for a few minutes in sitting. Pt then performed STS, and in standing , BP dropped to 111/50 mmHg but pt denied symptoms. Attempt to perform stand step pivot transfer, this time with assistance from pt's son to help pt maintain standind and PT guided pt's LEs due to poor direction following. Transfer to chair was successful with max tactile and verbal cues, FWW with maxA x2. Once sitting BP is 115/61 mmHg, with pt denying any symptoms. At end of session, pt is in chair with all needs met, set to eat dinner, call light within reach, and son sitting with pt . Gait Assessment Comments Gait Comments unable at this time PT-Balance Assessment Sitting Balance and Reactions Static Sitting Balance Ability Fair Dynamic Sitting Balance Ability Fair Standing Balance and Reactions Static Standing Balance Ability Poor Dynamic Standing Balance Ability Poor Device Used FWW M5 PT-IP Objective Assessments Start: 07/28/23 17:25 Freq: NEEDED Status: Active Protocol: Document 07/28/23 16:30 AB (Rec: 07/28/23 17:44 AB [id number]) Orientation Orientation/Cognition Level of Alertness Confusional State Orientation Name,Place,Situation Language Function Ability Hard of Hearing Safety Awareness Decreased Safety Awareness Memory Description 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,Nurse Gynecology Impaired Gross Range of Motion Lower Extremity ROM Assessment Within Functional Limits Strength Lower Extremity Strength Hip 4-/5 Knee 4-/5 Sensation Assessment Sensation Gross Sensation WNL Muscle Tone Muscle Tone WNL Yes M6 PT-IP Treatment Start: 07/28/23 17:25 Freq: NEEDED Status: Active Protocol: Document 07/30/23 17:18 AB(2) (Rec: 07/30/23 17:18 AB(2) [id number]) Physical Therapy Treatment Education Education Provided Precautions,Safety Brace Education Patient,Caregiver M7 PT-IP Assessment and Plan Start: 07/28/23 17:25 Freq: NEEDED Status: Active Protocol: Document 07/30/23 17:05 AB(2) (Rec: 07/30/23 17:18 AB(2) [id number]) PT Summary Assessment and Plan Potential Rehabilitation Potential Fair Summary Impairments Pain,ROM,Strength,Balance, Coordination,Sensation,Tone, Cognition,Bed Mobility, Transfers,Gait,Activity Tolerance Progress Towards Goals Slow Progress due to Pain,Slow Progress due to Medical Issues,Slow Progress due to Activity Tolerance Assessment Summary The pt continues to make some progress, as she is able to perform stand step pivot transfer, albeit with maxA x2 and FWW. The pt requires max verbal and tactile cues to perform this transfer due to poor balance, weakness, fatigue and cognitive deficits , as noted above. The pt would continue to benefit from skilled PT to improve her deficits in order to achieve her highest level of function. PT continues to recommend discharge to SNF to due to her impairments. Goals Bed Mobility Goal Minimal Assistance Transfer Goal Minimal Assistance,Front Wheeled Walker Gait Goal Minimal Assistance,Front Wheel Walker Gait Distance 25 Other Goals improve bed mobility, transfers , ambulation using FWW 100 ft SBA up/down 4 steps B rails CGA Days to Meet Goals 10 Frequency of Treatment Frequency Of Treatment Once a Day Treatment Plan Physical Therapy Treatment Plan Bed Mobility Training,Transfer Training,Gait Training, Therapeutic Exercise,Balance Retraining,Post Op Education, Discharge Planning,Hot or Cold Pack,Neuromuscular Re-ed, Coordination Retraining,Manual Therapy Precautions Abdominal Surgery Precautions Log Roll,Lifting Restrictions, Gait Belt above Incisional Area Recommendations To Nursing Amount of Assist Needed 2 Person Assist,Mechanical Lift Discharge Recommendations PT Discharge Recommendations SNF Rehab Transportation Needs at Discharge Wheelchair/Cabulance,Stretcher /Ambulance
--- NOTE | 2023-07-30 17:46 | P.PN_ITS ---
Subjective Subjective Interval history: Patient's family present in room. A 16 min discussion was had with them all including patient about GOC and if she wants to pursue hospice or not. She explained that she would rather find out her options in terms of treatment before committing to doing nothing. Exam Vital Signs (past 8 hours): Oxygen Delivery Method Room Air Oxygen Flow Rate 0 Narrative Exam Narrative: GEN: no acute distress, hard of hearing. Fatigued. HEENT: moist mucous membranes, PERRL NECK: trachea midline, no JVD CV: regular rate and rhythm, no murmurs PULM: clear bilaterally ABD: soft, nontender, distended, rare BT's, no organomegaly EXT: warm and well perfused with no edema NEURO: awake, alert, oriented, no focal deficits Objective Labs 07/30/23 05:30 07/30/23 05:30 Labs: Laboratory Results - last 24 hr 07/26/23 07/30/23 07/30/23 11:57 05:30 05:30 WBC 7.9 RBC 4.00 Hgb 9.7 L Hct 29.1 L MCV 72.7 L MCH 24.2 L MCHC 33.3 RDW 20.6 H Plt Count 314 Neut % (Auto) 82.7 H Lymph % (Auto) 7.3 L [place] % (Auto) 9.9 Eos % (Auto) 0.0 L Baso % (Auto) 0.1 Neut # (Auto) 6500 Lymph # (Auto) 600 L [place] # (Auto) 800 Eos # (Auto) 0 Baso # (Auto) 0 RBC Morphology See below Anisocytosis 1+ H Microcytosis 1+ H Smear Path Review Sodium 128 L Potassium 3.4 Chloride 96 L Carbon Dioxide 29 BUN 13 Creatinine 0.42 L Estimated GFR > 60 BUN/Creatinine Ratio 31.0 H Glucose 103 Calcium 8.1 L PFSH Medical History Acute respiratory failure with hypoxia Advanced directives, counseling/discussion Cataract Chronic headaches Empyema Exudative pleural effusion Family history of psychiatric disorder Fecal incontinence Hemorrhoids History of neutropenia History of osteomyelitis as a child History of osteopenia History of sepsis Medicare annual wellness visit, initial Osteopenia Thyroid nodule Tinnitus Urinary incontinence Surgical History History of hemorrhoidectomy Family History Father Alzheimers disease Mother COPD (chronic obstructive pulmonary disease) Sister Mental health problem Grandmother Mental health problem Social History marital status: details: She was in 1992 after her of prostate cancer. number of children: 1 household members: children pets and animals: Yes (3/dogs, 4/cats, 2/turtles) education level: master's degree occupational status: employed [employer]: Christianity travel history: other leisure activities: other seatbelt use: always water heater temp set < 120 deg: Yes working smoke detector in home: Yes fire extinguisher in home: Yes carbon monox detector in home: Yes firearms in home: No do you feel safe at home: No (When I leave home in different locations.) Smoking Status: Never smoker alcohol intake: current substance use type: amphetamines and prescription drug during the past year weight has: remained stable well-balanced diet: about half the time daily servings fruits/ve-4 caffeine: Yes (Rare/ 2 per month (soda), caffeine 2+ drinks per day) eating out: other Type(s) of exercise: walking frequency: other duration: 15-30 minutes/day additional social history: Lives by the [employer] walk and nafisa dogs when feeling well. Assessment & Plan Assessment & Plan narrative: # SBO 2/2 large abdominal tumor s/p resection -CT abdomen showed dilated loops of bowel with transition point at cecum, unclear cause is patient denies abdominal surgeries in past -general surgery consulted and took for ex-lap on 07/27 finding large abd mass adherent to bowel, bladder and ovary. This was all resected with anastamosis of bowel. -NG now out, advancing diet per gen surg -hospice discussed given new cancer finding, but patient wants to know her options by meeting with oncology first once biopsy results obta -PCP to place referral to [facility] - for now PT / OT to start with probable SNF after. # acute hypoxic respiratory failure, resolved -likely secondary to pneumonia, requiring 4-6L as sats were down to 83% -now off O2 # community-acquired pneumonia -chest x-ray with bilateral infiltrates -continue Rocephin and azithromycin IV -obtain sputum culture if able # ADHD -hold home Adderall while NPO # anxiety -Ativan IV as needed #advanced care planning -I spent the above time rediscussing goals of care with patient and son. They wish to remain full code, did rediscuss resuscitation with them today. They wou ld like to wait for biopsy results and discussion with oncology. Code status is full code. DVT prophylaxis with SCDs. Proxy is son. I have reviewed home meds and used all available resources to reconcile the home meds. Dispo: Pending advancement of diet and will likely need SNF. Consulted OT in a ddition to PT as well today.
[2023-07-30] MEDS: LORazepam 0.5 MG TABLET PO (18:06)
[2023-07-30 20:00] VITALS: BP 101/54; PULSE 106; RESP 15; TEMP 36.8; O2SAT 93
[2023-07-31 05:35] LABS: Add Manual Diff / Slide Review NO; Basophils Absolute Auto 0 /uL (0-100); Eosinophils Absolute Auto 0 /uL (0-450); Eosinophils Percent Auto 0.2 % (2-4); Hematocrit 26.8 % (36-46); Hemoglobin 8.8 g/dL (12.0-16.0); Lymphocytes Absolute Auto 600 /uL (1100-4500); Lymphocytes Percent Auto 12.7 % (25-40); Mean Corpuscular Hemoglobin 24.2 PG (26-34); Mean Corpuscular Volume 73.2 fL (80-100); Monocytes Absolute Auto 700 /uL (0-900); Monocytes Percent Auto 14.4 % (3-14); Neutrophils Absolute Auto 3400 /uL (1500-7000); Neutrophils Percent Auto 72.7 % (50-75); Platelet Count 296 X10^3/uL (150-400); Red Blood Cell Count 3.65 X10^6/uL (4.0-5.2); Red Cell Distribution Width 20.8 % (11.6-14.8); White Blood Cell Count 4.7 X10^3/uL (4.5-11.0)
[2023-07-31 05:39] LABS: BUN Creatinine Ratio 20.5 (6-22); Blood Urea Nitrogen 8 mg/dL (7-17); Calcium 8.2 mg/dL (8.4-10.2); Carbon Dioxide 28 mmol/L (22-32); Chloride 99 mmol/L (98-107); Estimated Glomerular Filt Rate > 60 mL/min (>60); Glucose 103 mg/dL (80-110); HEMOLYSIS < 15 (0-50); Potassium 3.8 mmol/L (3.4-5.1); Sodium 129 mmol/L (137-145)
[2023-07-31 06:00] LABS: Anisocytosis 1+; Microcytosis 1+
[2023-07-31 08:00] VITALS: BP 119/60; PULSE 97; RESP 17; TEMP 36.3; O2SAT 93
[2023-07-31] MEDS: PANTOPRAZOLE 40 MG VIAL IV (10:09)
[2023-07-31] MEDS: ENOXAPARIN 40 MG/0.4 ML SYRINGE SUBCUT (10:09)
[2023-07-31] MEDS: SODIUM CHLORIDE 0.9% FLUSH 10 ML IV (10:09)
--- NOTE | 2023-07-31 10:28 | PM.DS.1 ---
History of Present Illness History of Present Illness Date Patient Seen: 07/31/23 Time Patient Seen: 10:28 Chief complaint: no BM T-7 Narrative: Luis Manuel Cameron is a 77yo F with PMH of ADHD, remote empyema s/p VATS, hearing loss, and anxiety who presents with abd distension and 1 week of NV. Patient states she noticed her abd becoming larger last week and hasn't had a BM in 5 days. Passing minimal gas. She then began vomiting so came to the ED. Found to have SBO and NG tube placed. Gen surg consulted for management. CT abd pelvis also showed bilateral pulm infiltrates and CXR confirmed PNA so started on IV CAP abx. Denies CP, SOB, dysuria or headache. Discharge Providers Provider Date of admission: 07/26/23 15:13 Discharge Date: 07/31/23 Primary care physician: WALTER Flores Consults: 07/26/23 15:41 Consult to General Surgery Routine Comment: Consulting Provider: Deion Babb Reason for consultation: SBO 07/27/23 17:09 Consult to Palliative Care Routine Comment: metastatic colon cancer Consulting Provider: Tiera Luna 07/28/23 13:57 Consult to Physical Therapy Evaluate & Treat Comment: Physician Instructions: Evaluate and Treat 07/30/23 13:26 Consult to Occupational Therapy Evaluate & Treat Comment: Physician Instructions: Evaluate and treat Discharge provider: Justen Cortes DO Summary Hospital Course Discharge Diagnosis: # SBO 2/2 large abdominal tumor s/p resection # acute hypoxic respiratory failure, resolved # community-acquired pneumonia # ADHD # anxiety #advanced care planning Hospital Course: This is a 77 year old female admitted initially with a bowel obstruction secondary to a large abdominal tumor noted on presenting imaging. She was also noted to have mild hypoxia and respiratory failure likely in part due to bacterial pneumonia in combination with abdominal distension. She completed antibiotics for pneumonia during her stay. She underwent ex-lap on 07/27 with general surgery and was sound to have a large abdominal mass adherent to the bowel, bladder, and ovary. It was resected with reanastamosis during her surgery. She had slow return of bowel function, but it did return and she was tolerating a diet at the time of discharge. Son did not feel he could take care of the patient currently at discharge, and was recommended for SNF after PT/OT evaluations. Multiple goals of care discussions were obtained, and patient and family would like to seek oncology consultation and biopsy results once they are finalized to determine future treatments if any, or to persue hospice. No other medications she typically takes at home were changed at discharge. Time Spent with Patient Time spent: Greater than 30 minutes Exam Vital Signs (past 8 hours): - 07/31/23 08:00 Temperature 97.3 F L Pulse Rate 97 H Respiratory Rate 17 Blood Pressure 119/60 Pulse Oximetry 93 Oxygen Flow Rate 0 Oxygen Delivery Method Room Air Oxygen Flow Rate 0 Narrative Exam Narrative: GEN: no acute distress, hard of hearing. Fatigued. HEENT: moist mucous membranes, PERRL NECK: trachea midline, no JVD CV: regular rate and rhythm, no murmurs PULM: clear bilaterally ABD: soft, nontender, distended EXT: warm and well perfused with no edema NEURO: awake, alert, oriented, no focal deficits Objective Labs 07/31/23 05:10 07/31/23 05:10 Labs: Laboratory Results - last 24 hr 07/26/23 07/31/23 07/31/23 11:57 05:10 05:10 WBC 4.7 RBC 3.65 L Hgb 8.8 L Hct 26.8 L MCV 73.2 L MCH 24.2 L MCHC 33.0 RDW 20.8 H Plt Count 296 Neut % (Auto) 72.7 Lymph % (Auto) 12.7 L [place] % (Auto) 14.4 H Eos % (Auto) 0.2 L Baso % (Auto) 0.0 Neut # (Auto) 3400 Lymph # (Auto) 600 L [place] # (Auto) 700 Eos # (Auto) 0 Baso # (Auto) 0 RBC Morphology See below Anisocytosis 1+ H Microcytosis 1+ H Smear Path Review Sodium 129 L Potassium 3.8 Chloride 99 Carbon Dioxide 28 BUN 8 Creatinine 0.39 L Estimated GFR > 60 BUN/Creatinine Ratio 20.5 Glucose 103 Calcium 8.2 L [facility] Medical History Acute respiratory failure with hypoxia Advanced directives, counseling/discussion Cataract Chronic headaches Empyema Exudative pleural effusion Family history of psychiatric disorder Fecal incontinence Hemorrhoids History of neutropenia History of osteomyelitis as a child History of osteopenia History of sepsis Medicare annual wellness visit, initial Osteopenia Thyroid nodule Tinnitus Urinary incontinence Surgical History History of hemorrhoidectomy Family History Father Alzheimers disease Mother COPD (chronic obstructive pulmonary disease) Sister Mental health problem Grandmother Mental health problem Social History marital status: details: She was in 1992 after her of prostate cancer. number of children: 1 household members: children pets and animals: Yes (3/dogs, 4/cats, 2/turtles) education level: master's degree occupational status: employed alfredo/taoism: [employer] travel history: other leisure activities: other seatbelt use: always water heater temp set < 120 deg: Yes working smoke detector in home: Yes fire extinguisher in home: Yes carbon monox detector in home: Yes firearms in home: No do you feel safe at home: No (When I leave home in different locations.) Smoking Status: Never smoker alcohol intake: current substance use type: amphetamines and prescription drug during the past year weight has: remained stable well-balanced diet: about half the time daily servings fruits/ve-4 caffeine: Yes (Rare/ 2 per month (soda), caffeine 2+ drinks per day) eating out: other Type(s) of exercise: walking frequency: other duration: 15-30 minutes/day additional social history: Lives by the [place] walk and nafisa dogs when feeling well. Discharge Plan Discharge Plan Patient Disposition: SNF Provider Discharge Comment: You were admitted to the hospital with a bowel obstruction due to a large tumor, also treated for pneumonia. Transfer to SNF for ongoing therapy after treatments. Currently awaiting biopsy results but will need outpatient follow up with oncology for treatment options. Discharge orders & Medications Prescriptions: New acetaminophen 325 mg Tablet 650 mg PO Q6H PRN (Reason: Fever/Mild Pain (1-3)) Qty: 60 0RF pantoprazole 40 mg tablet,delayed release (DR/EC) 40 mg PO BID Qty: 30 0RF Continued cholecalciferol (vitamin D3) 5,000 unit capsule 5,000 unit PO DAILY pyridoxine (vitamin B6) 250 mg tablet 250 mg PO DAILY mecobalamin (vitamin B12) 5,000 mcg tablet,disintegrating 5,000 mcg PO DAILY ondansetron HCl 4 mg tablet 4 mg PO Q8H PRN (Reason: nausea and vomiting) Qty: 30 1RF dextroamphetamine-amphetamine [Adderall] 10 mg tablet 10 mg PO BID Qty: 60 0RF alprazolam 0.5 mg tablet 0.5 mg PO BID MDD 1MG PRN (Reason: anxiety) Qty: 30 0RF Follow up/Referrals: Arie Jonas ARNP [Primary Care Provider] - Discharge Health Status Precautions: [place] Diet/Activity/Treatments Diet: Diet as Tolerated and Regular Liquid consistency: Normal/Thin Food texture: Regular Special Rehabilitation Services Reason for rehabilitation: Post-operative therapy and Recovery r/t decondition Rehab type: Physical therapy and Occupational therapy Visit Report/Discharge Packet Instructions: DI for Colectomy, DI for Laparoscopy, DI for Prescription Opioid Use, [facility]: Wound Care Stand Alone Forms: Patient Portal/API Discharge Data Primary Care Provider: Arie Jonas Discharges patient from system. Discharge Date/Time: 07/31/23 13:54
--- NOTE | 2023-07-31 11:25 | OT.IP.EVAL ---
Current Diagnoses Unspecified intestinal obstruction, unspecified as to partial versus complete obstruction (07/26/23) Surgery Performed Operation Date: 07/27/23 12:30 Actual Procedures p Exploratory Laparotomy - Venu Kaba MD s Oophorectomy(Right) - Venu Kaba MD s Bladder Resection, Diverticulectomy - MD mert Blank right hemicolectomy(Right) - Venu Kaba MD Past Medical History (Last Reviewed 06/24/23 @ 10:54 by WALTER Flores) Acute respiratory failure with hypoxia Advanced directives, counseling/discussion Cataract Chronic headaches Empyema Exudative pleural effusion Family history of psychiatric disorder Fecal incontinence Hemorrhoids History of neutropenia History of osteomyelitis as a child History of osteopenia History of sepsis Medicare annual wellness visit, initial Osteopenia Thyroid nodule Tinnitus Urinary incontinence Surgical History (Last Reviewed 06/24/23 @ 10:54 by WALTER Flores) History of hemorrhoidectomy Occupational Therapy Inpatient Evaluation/Re-Eval M1 PT/OT-IP Prior Functional Status Start: 07/31/23 11:47 Freq: NEEDED Status: Active Protocol: Document 07/31/23 11:47 [facility] (Rec: 07/31/23 11:56 [facility] [id number]) Medical Review Prior Functional Status Medical History Reviewed Yes Communication pt with confusion; needs repetitions and max cues to respond Mobility and Gait pt stated that she is modified independent with all mobilities and ambulation without AD but occasionally uses a SPC Activities of Daily Living and IADL's Pt's son states two weeks ago still able to do all her ADL's on her own. Social History Household Members children Living Arrangements House Number of Floors (Floors) Two Floors Number of Stairs To Enter/Railing? pt stays on the main level of the house has 4 steps B rails to enter Home Environment Standard Height Toilet,Walk in Shower,Built-In Shower Seat Home Equipment Front Wheel Walker,Straight Cane,Grab Bars Near Toilet, Grab Bars In Shower Additional Social History Comment pt stated that her son Moises will be helping her at home M2 OT-IP Current Condition Start: 07/31/23 11:47 Freq: Status: Active Protocol: Document 07/31/23 11:47 [facility] (Rec: 07/31/23 11:56 [facility] [id number]) Occupational Therapy Current Condition Current Condition Evaluation Date 07/31/23 Treatment Diagnosis S/P large abdominal tumor resection, PNA, weakness Diagnosis Onset Date 07/26/23 Post Operative Precautions Abdominal Surgery Precautions Log Roll,Lifting Restrictions, Gait Belt above Incisional Area M3 OT- IP Subjective and Pain Start: 07/31/23 11:47 Freq: Status: Active Protocol: Document 07/31/23 11:47 [facility] (Rec: 07/31/23 11:56 [facility] [id number]) OT- Subjective Occupational Therapy Visit Type Type Initial Evaluation Visit Start Time 10:33 Visit Stop Time 11:28 Total Visit Minutes 55 Occupational Therapy Visit Comments Patient Comments Pt wanting to use the BSC. Patient/Caregiver Goals TO get stronger and be able to go home. OT Pain Assessment Pain When Pain Assessed During Mobility Pain Present Pain Present Pain Reported Location abdomen Pain Behaviors Facial Grimacing,Holding Area M4 OT- IP ADL's Start: 07/31/23 11:47 Freq: Status: Active Protocol: Document 07/31/23 11:47 [facility] (Rec: 07/31/23 11:56 [facility] [id number]) OT [id number] Comments OT Self-Feeding Comments Not at meal time. OT ADL-Grooming General Evaluation Grooming Ability Standby Assistance Comments OT Grooming Comments Set up assist while seated to be able to wash her face. OT ADL-Oral Care Comments Oral Care Comments Not performed. OT ADL-Dressing General Eval Upper Body Dressing Ability Maximum Assistance Lower Body Dressing Ability Maximum Assistance Comments OT Dressing Comments Assist to taj brief and gown. OT ADL-Toileting General Evaluation Toileting Ability Maximum Assistance,Total Assistance Areas Needing Assistance Empty Catheter or Colostomy, Manage Clothing,Perform Perineal Hygiene Comments OT Toileting Comments One person assist to stand pt to FWW MAX A and dependent for hygiene and brief needs. OT ADL-Bathing Bathing Type Bathing Type Sponge Bath General Evaluation Bathing Ability Maximal Assistance Areas Needing Assistance Wash/Dry Upper Body,Wash/Dry Back Comments OT Bathing Comments Pt able to wash her face and arms while seated on the BSC. M5 OT- IP IADL's Start: 07/31/23 11:47 Freq: Status: Active Protocol: Document 07/31/23 11:47 [facility] (Rec: 07/31/23 11:56 [facility] [id number]) OT-Instrumental Activities of Daily Living Deficits IADL Deficits Identified Deficits Home Safety Awareness Awareness of Need for Assistance at Home Decreased Awareness Ability to Problem Solve Emergency Unable to Problem Solve Situations Home Safety Comments Pt a bit groggy at this time. Medication Management Medication Management Comments Pt will need assist at this time. Money Management Money Management Comments Pt will need assist at this time. Meal Preparation Meal Preparation Comments Pt will need assist at this time. Container Filler Container Filler Comments Pt will need assist at this time. M6 OT- IP Functional Cognition Start: 07/31/23 11:47 Freq: Status: Active Protocol: Document 07/31/23 11:47 [facility] (Rec: 07/31/23 11:56 [facility] [id number]) Cognitive Factors Limiting Selfcare Function Cognitive Ability Level of Alertness Alert Patient Orientation Name,Place,Situation Attention Span Ability Capable of Focused Attention, Unable to Sustain Attention Ability to Follow Commands Able to Follow One Step Commands with Increased Time, Able to Follow One Step Commands with Repetition Cognitive Comments Cognitive Assessment Comments Pt very hard of hearing and needing instructions and commands repeated. Pt also needing concrete commands to follow. OT- Vision and Hearing OT- Hearing Assessment OT- Hearing Assessment Hearing Impaired M7 OT- IP Mobility and Balance Start: 07/31/23 11:47 Freq: Status: Active Protocol: Document 07/31/23 11:47 [facility] (Rec: 07/31/23 11:56 [facility] [id number]) OT- Bed Mobility Assessment Supine to Sit Supine to Sit Assist Maximum Assistance OT-Transfer Assessment Sit to and From Stand Sit to and from Stand Maximum Assistance,2 Person Assistance Transfers Transfer Ability Maximum Assistance,2 Person Assistance OT- Balance Assessment Sitting Balance and Reactions Static Sitting Balance Ability Fair Dynamic Sitting Balance Ability Poor Standing Balance and Reactions Static Standing Balance Ability Poor Dynamic Standing Balance Ability Poor M8 OT- IP Objective Assessments Start: 07/31/23 11:47 Freq: Status: Active Protocol: Document 07/31/23 11:47 [facility] (Rec: 07/31/23 11:56 [facility] [id number]) OT Gross Range of Motion Upper Extremity Range of Motion Assessment Bilaterally Impaired OT Strength Upper Extremity Strength Assessment Bilaterally Impaired OT- Coordination Assessment Upper Extremity Finger to Nose Test Bilateral UE Impaired OT-Muscle Tone Assessment Muscle Tone WNL Yes M9 OT- IP Assessment and Plan Start: 07/31/23 11:47 Freq: Status: Active Protocol: Document 07/31/23 11:47 [facility] (Rec: 07/31/23 11:56 [facility] [id number]) OT Summary Assessment and Plan Potential Rehabilitation Potential Good Analytic Complexity at Evaluation High Summary OT Impairments Pain,Range of Motion,Strength, Balance,Functional Cognition, Functional Mobility,Self- Feeding,Grooming,Dressing, Toileting,Bathing,Toilet Transfers,Shower Transfers, Activity Tolerance Progress Towards Goals Slow Progress due to Pain,Slow Progress due to Medical Issues,Slow Progress due to Activity Tolerance,Slow Progress due to Cognition Goals Self-Feeding Goal Independent Grooming Goal Independent Dressing Goal Independent Toileting Goal Independent Bathing Goal Independent Toilet Transfer Goal Independent Shower Transfer Goal Independent Days to Meet Goals 20 Frequency of Treatment Frequency Of Treatment Once a Day Treatment Plan OT Treatment Plan ADL Training,Functional Cognition Training,Functional Mobility,Patient/Family Education,Discharge Planning Discharge Recommendations OT Discharge Recommendations SNF Rehab Transportation Needs at Discharge Wheelchair/Cabulance
--- NOTE | 2023-07-31 12:23 | CM.DPC ---
NESTOR Varghese. Met with pt/son at bedside, discussed their preference to not opt for hospice services, and to have their PCP place a referral for an [facility] consult to determine if she has treatment options available for her. Discussed with son/pt that if she d/c's from in today to [facility], the focus will remain completely on recovery/rehab post-surgery. Furthermore, if at the consult with [facility] they offer treatment options, she would need to d/c home in order to pursue active treatment. Both son and pt expressed understanding, and that they are in agreement with this plan. RIGGER UP spoke with the Hospitalist, Dr. Cortes, and discussed the same plan. He is also in agreement, and states pt is medically cleared to d/c today, pending plan for placement at [facility]. Notified [facility] of the updated plan.
--- NOTE | 2023-07-31 13:18 | PT-IP ANOTE ---
Pt is being discharged today, therefore no further PT is needed at this time.
--- NOTE | 2023-07-31 13:24 | PC.NURSE ---
Report given to Mando at [facility] . Patient up in chair ready to discharge [facility]. Denies pain. Aquacel dressing remains intact with shadow drainage. Patient had multiple BM's this morning. Montano remains in place, secured with stat lock to left thigh, emptied prior to discharge today. Patient tolerating her meals. Patient to follow up with surgery and oncology for continued plan of care.
== END 2023-07-31 13:54 | DRG 329 ==
LOC: ED 11:25 → AC 15:14
PROVIDERS: Surgery; Admitting Provider Student in an Organized Health Care Education/Training Program; Emergency Provider Emergency Medicine; PCP Registered Nurse Diabetes Educator; Referring Provider Emergency Medicine; Visit Provider Anesthesiology
PROC: 0DTF0ZZ Resection of Right Large Intestine, Open Approach (ICD-10-PCS; CPT 49000; principal; 2023-07-27 12:30)
PROC: 0WJJ0ZZ Inspection of Pelvic Cavity, Open Approach (ICD-10-PCS; CPT 49000; 2023-07-27 12:30)
PROC: 0DTF0ZZ Resection of Right Large Intestine, Open Approach (ICD-10-PCS; CPT 51525; 2023-07-27 12:30)
PROC: 0DTE0ZZ Resection of Large Intestine, Open Approach (ICD-10-PCS; 2023-07-27 12:30)
DX: C18.0 Malignant neoplasm of cecum (principal); J18.9 Pneumonia, unspecified organism; J96.01 Acute respiratory failure with hypoxia; C79.11 Secondary malignant neoplasm of bladder; F90.9 Attention-deficit hyperactivity disorder, unspecified type; F41.9 Anxiety disorder, unspecified
CPT/HCPCS: 36415; 36600; 44160; 51550; 58720; 71045; 74177; 80048; 80053; 81003; 81015; 82140; 82805; 83605; 83690; 83735; 84145; 84300; 85007; 85025; 85610; 87040; 93005; 94762; 96365; 96375; 97163; 97167; 97530; 99221; 99285; C9113; J0330; J0696; J1170; J1650; J1940; J2060; J2704; J3010; J3490; Q9967

== ENCOUNTER → 2023-08-15 15:10 | Outpatient (CLI) | payer MEDICARE, OTHER, SELFPAY ==
[2023-08-01 15:49] VITALS: BMI 20.5
[2023-08-15 18:21] LABS: Basophils Absolute Auto 0 /uL (0-100); Basophils Percent Auto 0.7 % (0-2); Eosinophils Absolute Auto 100 /uL (0-450); Eosinophils Percent Auto 1.7 % (2-4); Hematocrit 30.1 % (36-46); Hemoglobin 9.8 g/dL (12.0-16.0); Lymphocytes Absolute Auto 1400 /uL (1100-4500); Lymphocytes Percent Auto 26.8 % (25-40); Mean Corpuscular HGB Conc 32.6 % (30-36); Mean Corpuscular Hemoglobin 24.5 PG (26-34); Mean Corpuscular Volume 75.1 fL (80-100); Monocytes Absolute Auto 700 /uL (0-900); Monocytes Percent Auto 12.5 % (3-14); Neutrophils Absolute Auto 3100 /uL (1500-7000); Neutrophils Percent Auto 58.3 % (50-75); Platelet Count 525 X10^3/uL (150-400); Red Cell Distribution Width 22.5 % (11.6-14.8); White Blood Cell Count 5.3 X10^3/uL (4.5-11.0)
[2023-08-15 18:33] LABS: Add Manual Diff / Slide Review SLIDE REVIEW
[2023-08-15 18:54] LABS: C-Reactive Protein Quant 0.7 mg/dL (<1.0)
[2023-08-15 18:59] LABS: Alanine Aminotransferase 18 IU/L (<35); Albumin 3.5 g/dL (3.5-5.0); Alkaline Phosphatase 67 U/L (38-126); Aspartate Aminotransferase 23 IU/L (14-36); BUN Creatinine Ratio 28.6 (6-22); Blood Urea Nitrogen 12 mg/dL (7-17); Calcium 9.2 mg/dL (8.4-10.2); Carbon Dioxide 31 mmol/L (22-32); Chloride 99 mmol/L (98-107); Estimated Glomerular Filt Rate > 60 mL/min (>60); Globulin 3.5 g/dL (1.7-4.1); Glucose 101 mg/dL (80-110); HEMOLYSIS < 15 (0-50); Sodium 136 mmol/L (137-145)
[2023-08-15 19:03] LABS: Bilirubin Total < 0.1 mg/dL (0.2-1.3)
[2023-08-15 19:09] LABS: Anisocytosis 3+; Microcytosis 1+
[2023-08-15 19:10] LABS: Schistocytes 1+; Target Cells 1+
[2023-08-15 19:23] LABS: Carcinoembryonic Antigen 5.2 ng/mL (0.1-3.0)
[2023-08-15 19:33] LABS: Erythrocyte Sedimentation Rate 29 MM/HR (0-20)
[2023-08-17 18:56] LABS: Interpretation Negative (Negative)
== END ==
PROVIDERS: PCP Registered Nurse Diabetes Educator; Referring Provider Internal Medicine Hematology & Oncology; Visit Provider Internal Medicine Hematology & Oncology
DX: R63.4 Abnormal weight loss (principal); D64.9 Anemia, unspecified; C19 Malignant neoplasm of rectosigmoid junction; A04.8 Other specified bacterial intestinal infections; R79.89 Other specified abnormal findings of blood chemistry; R79.82 Elevated C-reactive protein (CRP)
CPT/HCPCS: 36415; 80053; 82378; 83013; 85025; 85651; 86140

== ENCOUNTER → 2023-09-06 09:52 | Outpatient (CLI) | payer MEDICARE, OTHER, SELFPAY ==
[2023-08-01 15:49] VITALS: BMI 20.5
--- NOTE | 2023-09-06 | DI.CT.S_ITS ---
PROCEDURE: CT CYSTOGRAM INDICATIONS: F/U SP PARTIAL CYSTECTOMY TECHNIQUE: Both before and after gravity instillation of 10% Isovue contrast solution into the bladder through a Montano catheter, 5 mm axial images acquired from the bladder dome to the symphysis. 5 mm thick coronal and sagittal reformats were acquired. For radiation dose reduction, the following was used: automated exposure control, adjustment of mA and/or kV according to patient size. COMPARISON: , CT, CT ABDOMEN PELVIS W CON, 07/26/2023, 13:19. FINDINGS: Image quality: Excellent. Genitourinary: Bladder wall thickness is normal. No contrast extravasation. Distal portions of both ureters are normal in caliber. Air within the urinary bladder, presumably iatrogenic. Mild cystocele. Peritoneum and bowel: Unenhanced bowel loops are normal in caliber and wall thickness. No pathologic free pelvic fluid. Interval right hemicolectomy. Nodes and vessels: No iliac, pelvic, or inguinal adenopathy by size criteria. Iliac vessels are normal in size. Bones: No suspicious bony lesions. Miscellaneous: No inguinal hernias. IMPRESSION: No evidence of bladder leak. Normal colonic caliber. Mild cystocele. Dictated by: Idris Dela Cruz M.D. on 09/06/2023 at 11:06 Approved by: Idris Dela Cruz M.D. on 09/06/2023 at 11:11
== END ==
PROVIDERS: PCP Registered Nurse Diabetes Educator; Referring Provider Surgery; Visit Provider Surgery
DX: Z90.6 Acquired absence of other parts of urinary tract (principal); Z09 Encounter for follow-up examination after completed treatment for conditions other than malignant neoplasm; N81.10 Cystocele, unspecified
CPT/HCPCS: 72194

== ENCOUNTER 2023-09-08 14:25 | Emergency (ER) | payer MEDICARE, OTHER, SELFPAY ==
[2023-08-01 15:49] VITALS: BMI 20.5
[2023-09-08 14:28] VITALS: BP 107/51; PULSE 85; RESP 18; TEMP 36.8; O2SAT 100; BMI 17.8
--- NOTE | 2023-09-08 14:36 | DI.US.S_ITS ---
PROCEDURE: US PERIPH VENOUS LOW EXTREM LT INDICATIONS: leg leg pain and swelling TECHNIQUE: Real-time imaging, as well as color and pulse Doppler interrogation, were performed of the lower extremity deep veins from the inguinal ligament to the popliteal fossa, with documentation of the visualized calf veins. COMPARISON: None. FINDINGS: The common femoral, femoral, popliteal, and the visualized calf veins are normally compressible, and free of intraluminal thrombus. Color and pulse Doppler demonstrate normal phasic intraluminal flow. There is normal augmentation response to distal compression maneuver. IMPRESSION: No findings of lower extremity deep venous thrombosis. Approved by: Nikita Sherman M.D. on 09/08/2023 at 15:00
--- NOTE | 2023-09-08 16:08 | ED.EXTPRO ---
HPI - Extremity Problem <Cedric Motley PA-C - Last Filed: 09/08/23 16:47> General Chief complaint: Extremity Problem,Nontraumatic Stated complaint: Sent by [facility]/ L/leg swollen and painful Time Seen by Provider: 09/08/23 16:04 Source: patient Mode of arrival: Wheelchair History of Present Illness HPI Narrative: This is a 78-year-old female presents to the ED due to left lower extremity me swelling for the last couple of days. She states that she was staying at a SNF for about a month but was discharged about a week ago. She states she is been much more active and on her feet but then noticed the swelling to the left lower extremity. She denies any significant pain although states that it does feel ?a little different?. Denies any chest pain, shortness of breath, fevers, abdominal pain, or any other concerning signs or symptoms. Related Data Home Medications Medication Instructions Recorded Confirmed cholecalciferol (vitamin D3) 125 5,000 unit PO DAILY 11/05/19 09/06/23 mcg (5,000 unit) capsule mecobalamin (vitamin B12) 5,000 5,000 mcg PO DAILY 11/05/19 09/06/23 mcg disintegrating tablet pyridoxine (vitamin B6) 250 mg 250 mg PO DAILY 11/05/19 09/06/23 tablet Previous Rx's Medication Instructions Recorded ondansetron HCl 4 mg tablet 4 mg PO Q8H PRN nausea and 07/03/23 vomiting #30 tabs acetaminophen 325 mg tablet 650 mg (2 x 325 mg) PO Q6H PRN 07/31/23 Fever/Mild Pain (1-3) #60 tabs alprazolam 0.5 mg tablet 0.5 mg PO BID PRN anxiety #30 tabs 07/31/23 dextroamphetamine-amphetamine 10 10 mg PO BID #60 tabs 07/31/23 mg tablet (Adderall) pantoprazole 40 mg tablet,delayed 40 mg PO BID #30 tabs 07/31/23 release Allergies Allergy/AdvReac Type Severity Reaction Status Date / Time atomoxetine Allergy Verified 09/08/23 14:36 Review of Systems <Cedric Motley PA-C - Last Filed: 09/08/23 16:47> Review of Systems Narrative: GENERAL: Denies chills, fatigue, malaise, fever, sweats. HEENT: Denies sinus pain, ear pain, sore throat, difficulty swallowing, dizziness. RESPIRATORY: Denies dyspnea, cough, wheezing, hemoptysis, sputum. CARDIOVASCULAR: Denies chest pain, palpitations, orthopnea, edema, GASTROINTESTINAL: Denies nausea, vomiting, abdominal pain, diarrhea, constipation, melena. : Denies dysuria, frequency, incontinence, hematuria, urinary retention. MUSCULOSKELETAL: Left lower extremity swelling, denies weakness, joint pain, or bony pain SKIN: Denies rash, skin lesions, or other NEUROLOGIC: Denies weakness, headache, numbness, change in speech, confusion, seizures, incoordination. PSYCHIATRIC: No concerning psychosocial issues. 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 Advanced directives, counseling/discussion Osteopenia Medicare annual wellness visit, initial Acute respiratory failure with hypoxia Empyema Exudative pleural effusion History of sepsis Family history of psychiatric disorder Chronic headaches History of osteopenia History of osteomyelitis as a child History of neutropenia Tinnitus Cataract Urinary incontinence Fecal incontinence Hemorrhoids Thyroid nodule Surgical History History of hemorrhoidectomy Family History Father Alzheimers disease Mother COPD (chronic obstructive pulmonary disease) Sister Mental health problem Grandmother Mental health problem Social History marital status: details: She was in 1992 after her of prostate cancer. number of children: 1 household members: children pets and animals: Yes (3/dogs, 4/cats, 2/turtles) education level: master's degree occupational status: employed [employer]/denominational: [employer] travel history: other leisure activities: other seatbelt use: always water heater temp set < 120 deg: Yes working smoke detector in home: Yes fire extinguisher in home: Yes carbon monox detector in home: Yes firearms in home: No do you feel safe at home: No (When I leave home in different locations.) Smoking Status: Never smoker alcohol intake: current substance use type: amphetamines and prescription drug during the past year weight has: remained stable well-balanced diet: about half the time daily servings fruits/ve-4 caffeine: Yes (Rare/ 2 per month (soda), caffeine 2+ drinks per day) eating out: other Type(s) of exercise: walking frequency: other duration: 15-30 minutes/day additional social history: Lives by the [employer] walk and nafisa dogs when feeling well. Smoking Status: Never smoker alcohol intake frequency: holidays/special occasions only Substance Use Type: does not use Exam <Cedric Motley PA-C - Last Filed: 09/08/23 16:47> Narrative Exam Narrative: GENERAL: Well-developed patient, in mild distress. HEAD: Atraumatic. Normocephalic. EYES: Pupils equal round and reactive. Extraocular motions intact. No scleral icterus. No injection or drainage. ENT: Nose without bleeding, purulent drainage. Throat without erythema, tonsillar hypertrophy or exudate. Airway patent. NECK: Trachea midline. Non tender CARDIOVASCULAR: Regular rate and rhythm without murmurs, gallops, or rubs. RESPIRATORY: Clear to auscultation. Breath sounds equal bilaterally. No wheezes, rales, or rhonchi. GASTROINTESTINAL: Abdomen soft, non-tender, nondistended. EXTREMITIES: 2+ pitting edema to the left lower extremity, 1+ pitting edema to the right lower extremity, no erythema, no tenderness to palpation through any part of the lower extremity. BACK: Nontender without deformity or crepitance. No flank tenderness. NEURO: AOx3. SKIN: No rash or erythema of visible areas Initial Vital Signs Initial Vital Signs: Vital Signs Temperature 98.3 F 09/08/23 14:28 Pulse Rate 85 09/08/23 14:28 Respiratory Rate 18 09/08/23 14:28 Blood Pressure 107/51 L 09/08/23 14:28 Pulse Oximetry 100 09/08/23 14:28 Oxygen Delivery Method Room Air 09/08/23 14:28 <Marcy West DO - Last Filed: 09/09/23 07:10> Initial Vital Signs Initial Vital Signs: Vital Signs Temperature 98.3 F 09/08/23 14:28 Pulse Rate 85 09/08/23 14:28 Respiratory Rate 18 09/08/23 14:28 Blood Pressure 107/51 L 09/08/23 14:28 Pulse Oximetry 100 09/08/23 14:28 Oxygen Delivery Method Room Air 09/08/23 14:28 Course <Cedric Motley PA-C - Last Filed: 09/08/23 16:47> Orders Ordered: ED Orders 09/08/23 14:36 US periph venous low extrem lt Stat Vital Signs Vital signs: Vital Signs - 8 hr 09/08/23 14:28 Temperature 98.3 F Pulse Rate 85 Respiratory Rate 18 Blood Pressure 107/51 L Pulse Oximetry 100 Oxygen Delivery Method Room Air <Marcy West DO - Last Filed: 09/09/23 07:10> Orders Ordered: ED Orders 09/08/23 14:36 US perip venous low extrem lt Stat Vital Signs Vital signs: Vital Signs - 8 hr 09/08/23 14:28 Temperature 98.3 F Pulse Rate 85 Respiratory Rate 18 Blood Pressure 107/51 L Pulse Oximetry 100 Oxygen Delivery Method Room Air MDM - Extremity (Nontraumatic) <Cedric Motley PA-C - Last Filed: 09/08/23 16:47> Imaging Data US - DVT: Radiologist's Impression: [place] [address] Ultrasound Report Signed Patient: Luis Manuel Cameron MR#: [id number] : 1945 Acct:[id number] Age/Sex: 78 / F Date of Service: 09/08/23 Loc: ED Accession Number: [id number] Procedure: US periph venous low extrem lt Ordering Provider: Marcy West D.O. PROCEDURE: US PERIPH VENOUS LOW EXTREM LT INDICATIONS: leg leg pain and swelling TECHNIQUE: Real-time imaging, as well as color and pulse Doppler interrogation, were performed of the lower extremity deep veins from the inguinal ligament to the popliteal fossa, with documentation of the visualized calf veins. COMPARISON: None. FINDINGS: The common femoral, femoral, popliteal, and the visualized calf veins are normally compressible, and free of intraluminal thrombus. Color and pulse Doppler demonstrate normal phasic intraluminal flow. There is normal augmentation response to distal compression maneuver. IMPRESSION: No findings of lower extremity deep venous thrombosis. Approved by: Nikita Sherman M.D. on 09/08/2023 at 15:00 MDM Narrative Medical decision making narrative: MDM * differential diagnosis includes but not limited to DVT, chronic venous insufficiency, cellulitis, muscular injury * Prior records reviewed: Patient was seen at the walk-in clinic just prior to arrival. Discharged from SNF about a week ago. She began having pain in her leg 2 days ago. Has pain in her left hip and groin that radiates to her left knee. * My lab interpretation: None obtained * My imaging interpretation: Ultrasound negative for DVT * Clinical Decision Rules/Scores evaluated: None * Independent discussions with: None ED Course: This is a 78-year-old female with mild dementia presents emergency department due to left lower extremity pain beginning of the calf and primarily around the ankle on the left side. Ultrasound negative for DVT. Suspect chronic venous insufficiency. She denies any chest pain, shortness of breath, and lower concern for any kind of CHF. No reported history of heart failure. Recommend she follow up with the her primary care provider outpatient for chronic management. Recommended elevation, compression stockings, and rest Shared Decision Making: Discussed plan with the patient who is comfortable with the plan. Social Considerations: None Disposition: Discharged to home Discharge Plan Departure Patient Disposition: Home Clinical Impression: Chronic venous insufficiency Activity Restrictions/Additional Instructions: Thank you for coming to the [facility] Emergency Department today. As we discussed your ultrasound was negative for any kind of worrisome blood clot. I do suspect you have chronic venous issues which is causing the mild swelling in her legs. I do recommend elevation, rest, and compression stockings. Please follow up with the primary care provider to discuss the cause of your lower extremity swelling. I hope you feel better soon. Please follow up with your primary care provider within a week if your symptoms continue. If you do not have a primary care provider please contact the [facility] Resource line at [phone]. They will ask some questions about your medical history and help you get set up with a provider in the community. Prescriptions: No Action cholecalciferol (vitamin D3) 5,000 unit capsule 5,000 unit PO DAILY pyridoxine (vitamin B6) 250 mg tablet 250 mg PO DAILY mecobalamin (vitamin B12) 5,000 mcg tablet,disintegrating 5,000 mcg PO DAILY ondansetron HCl 4 mg tablet 4 mg PO Q8H PRN (Reason: nausea and vomiting) Qty: 30 1RF acetaminophen 325 mg Tablet 650 mg PO Q6H PRN (Reason: Fever/Mild Pain (1-3)) Qty: 60 0RF pantoprazole 40 mg tablet,delayed release (DR/EC) 40 mg PO BID Qty: 30 0RF dextroamphetamine-amphetamine [Adderall] 10 mg tablet 10 mg PO BID Qty: 60 0RF alprazolam 0.5 mg tablet 0.5 mg PO BID MDD 1MG PRN (Reason: anxiety) Qty: 30 0RF Referrals: Arie Jonas ARNP [Primary Care Provider] - Stand Alone Forms: Patient Portal/API ED Sign-out <Marcy West DO - Last Filed: 09/09/23 07:10> Cosign ED Attending Sole Attestation: I was immediately available in the department for consultation. Documentation has been reviewed.
[2023-09-08 16:54] VITALS: BP 112/58; PULSE 78; RESP 16; TEMP 36.8; O2SAT 98
== END 2023-09-08 16:55 | disposition home or self-care (01) ==
PROVIDERS: Emergency Provider Physician Assistant Medical; PCP Registered Nurse Diabetes Educator
DX: I87.2 Venous insufficiency (chronic) (peripheral) (principal)
CPT/HCPCS: 93971; 99281; 99282

== ENCOUNTER → 2024-02-05 15:56 | Outpatient (CLI) | payer MEDICARE, OTHER, SELFPAY ==
[2024-02-04 14:17] VITALS: BMI 20.5
[2024-02-05 17:21] LABS: Add Manual Diff / Slide Review NO; Basophils Absolute Auto 0 /uL (0-100); Basophils Percent Auto 0.3 % (0-2); Eosinophils Absolute Auto 0 /uL (0-450); Eosinophils Percent Auto 0.4 % (2-4); Hematocrit 40.4 % (36-46); Hemoglobin 13.4 g/dL (12.0-16.0); Lymphocytes Absolute Auto 1200 /uL (1100-4500); Lymphocytes Percent Auto 23.8 % (25-40); Mean Corpuscular HGB Conc 33.1 % (30-36); Mean Corpuscular Hemoglobin 28.4 PG (26-34); Mean Corpuscular Volume 85.9 fL (80-100); Monocytes Absolute Auto 500 /uL (0-900); Monocytes Percent Auto 10.4 % (3-14); Neutrophils Absolute Auto 3200 /uL (1500-7000); Neutrophils Percent Auto 65.1 % (50-75); Platelet Count 250 X10^3/uL (150-400); White Blood Cell Count 4.9 X10^3/uL (4.5-11.0)
[2024-02-05 18:34] LABS: HEMOLYSIS < 15 (0-50)
[2024-02-05 18:41] LABS: Potassium 3.8 mmol/L (3.4-5.1)
[2024-02-05 18:42] LABS: Alanine Aminotransferase 22 IU/L (<35); Albumin 4.3 g/dL (3.5-5.0); Albumin Globulin Ratio 1.1 (1.0-2.8); Alkaline Phosphatase 78 U/L (38-126); Aspartate Aminotransferase 34 IU/L (14-36); BUN Creatinine Ratio 25.3 (6-22); Bilirubin Total 0.6 mg/dL (0.2-1.3); Blood Urea Nitrogen 19 mg/dL (7-17); Calcium 9.5 mg/dL (8.4-10.2); Carbon Dioxide 30 mmol/L (22-32); Chloride 103 mmol/L (98-107); Estimated Glomerular Filt Rate > 60 mL/min (>60); Globulin 3.8 g/dL (1.7-4.1); Glucose 92 mg/dL (80-110); Sodium 138 mmol/L (137-145); Total Protein 8.1 g/dL (6.3-8.2)
[2024-02-05 19:14] LABS: TSH w/ Reflex to FT4 1.82 uIU/mL (0.47-4.68)
[2024-02-07 12:29] LABS: Vitamin B12 388 pg/mL (239-931)
== END ==
PROVIDERS: PCP Registered Nurse Diabetes Educator; Referring Provider Physician Assistant; Visit Provider Physician Assistant
DX: R41.0 Disorientation, unspecified (principal); R01.1 Cardiac murmur, unspecified
CPT/HCPCS: 80053; 82607; 84443; 85025

== ENCOUNTER → 2024-02-07 14:03 | Outpatient (CLI) | payer MEDICARE, OTHER, SELFPAY ==
[2024-02-04 14:17] VITALS: BMI 20.5
[2024-02-07 14:56] LABS: Bacteria Urine Occasional (0-1); Culture Indicated Urine Cult Not Indicated; RBC Urine None Seen (0-5/HPF); Squamous Epithelial Cell Urine None Seen (0-5/HPF); Transitional Epi Cells Urine 0-1/HPF (0-5/HPF); Urine Volume 10mL (spun); WBC Urine None Seen (0-5/HPF)
== END ==
LOC: LAB 14:04
PROVIDERS: PCP Registered Nurse Diabetes Educator; Referring Provider Physician Assistant; Visit Provider Physician Assistant
DX: R41.0 Disorientation, unspecified (principal); N39.0 Urinary tract infection, site not specified
CPT/HCPCS: 81015

== ENCOUNTER 2024-02-08 15:20 | Emergency (ER) | payer MEDICARE, OTHER, SELFPAY ==
[2024-02-04 14:17] VITALS: BMI 20.5
[2024-02-08] VITALS (14 sets, daily range): BP systolic 121–156; BP diastolic 57–73; PULSE 68–100; RESP 18; TEMP 37.1; O2SAT 74–100; BMI 20.4
--- NOTE | 2024-02-08 15:39 | DI.CT.S_ITS ---
PROCEDURE: CT HEAD/BRAIN WO CON INDICATIONS: confusion with hx cancer TECHNIQUE: Noncontrast 4.5 mm thick angled axial sections acquired from the foramen magnum to the vertex, with coronal and sagittal reformats. For radiation dose reduction, the following was used: automated exposure control, adjustment of mA and/or kV according to patient size. COMPARISON: None. FINDINGS: Image quality: Diagnostic. CSF spaces: Basal cisterns are patent. No extra-axial fluid collections. Brain: There is cerebral volume loss for age, with resultant ventricular and sulcal prominence. There are periventricular and deep white matter chronic small vessel ischemic changes. There is intracranial internal carotid artery atherosclerosis. There is appearance of low-attenuation within the posterior right parietal occipital lobe with effacement of the temporal horn of left lateral ventricle. There is an ill-defined appearance of low-attenuation with slight hyperdense periphery in the left frontal lobe in the left para midline location on series 2, image 27. There is also a masslike appearance of relative hyperintensity in the posterior left occipital lobe measuring 2.7 cm on series 2, image 18. Skull and face: Calvarium and visualized facial bones appear intact, without suspicious lesions. Sinuses: Visualized sinuses and mastoids are clear. IMPRESSION: Appearance of vasogenic edema within the left posterior parietal occipital lobe with masslike appearance in the left occipital lobe. In addition, masslike appearance is also present in the left frontal lobe. While there is no left right midline shift, there is mild effacement of the temporal horn of the left lateral ventricle. Overall appearance is concerning for metastatic disease given history of colon cancer. MRI with without contrast is recommended for further evaluation. Dictated by: Analilia Guevara M.D. on 02/08/2024 at 16:08 Approved by: Analilia Guevara M.D. on 02/08/2024 at 16:19
--- NOTE | 2024-02-08 15:39 | DI.RAD.S_ITS ---
PROCEDURE: XR CHEST 1V INDICATIONS: confusion TECHNIQUE: One view of the chest was acquired. COMPARISON: [facility], CR, XR CHEST 1V, 07/26/2023, 15:16. [facility], CR, XR CHEST 1V, 07/26/2023, 14:04. FINDINGS: Surgical changes and devices: None. Lungs and pleura: Lungs are clear. No pleural effusions or pneumothorax. Mediastinum: Mediastinal contours appear normal. Heart size is normal. Bones and chest wall: No suspicious bony lesions. Overlying soft tissues appear unremarkable. IMPRESSION: No acute cardiopulmonary abnormality is seen. Dictated by: Leoncio Blanca M.D. on 02/08/2024 at 16:53 Approved by: Leoncio Blanca M.D. on 02/08/2024 at 16:53
[2024-02-08 17:10] LABS: Add Manual Diff / Slide Review NO; Basophils Absolute Auto 0 /uL (0-100); Basophils Percent Auto 0.7 % (0-2); Eosinophils Absolute Auto 0 /uL (0-450); Eosinophils Percent Auto 0.3 % (2-4); Hematocrit 38.4 % (36-46); Lymphocytes Absolute Auto 1500 /uL (1100-4500); Mean Corpuscular HGB Conc 33.7 % (30-36); Mean Corpuscular Hemoglobin 28.9 PG (26-34); Mean Corpuscular Volume 85.6 fL (80-100); Monocytes Absolute Auto 600 /uL (0-900); Monocytes Percent Auto 11.8 % (3-14); Neutrophils Absolute Auto 2800 /uL (1500-7000); Neutrophils Percent Auto 56.2 % (50-75); Platelet Count 254 X10^3/uL (150-400); Red Blood Cell Count 4.49 X10^6/uL (4.0-5.2); Red Cell Distribution Width 16.8 % (11.6-14.8); White Blood Cell Count 4.9 X10^3/uL (4.5-11.0)
[2024-02-08 17:13] LABS: Lactate (Lactic Acid) 2.1 mmol/L (0.7-2.1)
[2024-02-08 17:14] LABS: Alanine Aminotransferase 21 IU/L (<35); Albumin 4.2 g/dL (3.5-5.0); Albumin Globulin Ratio 1.2 (1.0-2.8); Alkaline Phosphatase 58 U/L (38-126); Aspartate Aminotransferase 31 IU/L (14-36); Bilirubin Total 0.6 mg/dL (0.2-1.3); Blood Urea Nitrogen 13 mg/dL (7-17); Calcium 9.5 mg/dL (8.4-10.2); Carbon Dioxide 28 mmol/L (22-32); Chloride 104 mmol/L (98-107); Creatine Kinase 90 U/L (30-135); Estimated Glomerular Filt Rate > 60 mL/min (>60); Globulin 3.5 g/dL (1.7-4.1); Glucose 164 mg/dL (80-110); HEMOLYSIS 15 (0-50); Potassium 3.5 mmol/L (3.4-5.1); Sodium 137 mmol/L (137-145); Total Protein 7.7 g/dL (6.3-8.2)
[2024-02-08 17:24] LABS: Troponin I < 0.012 ng/mL (0.01-0.034)
[2024-02-08 17:28] LABS: Procalcitonin < 0.03 ng/mL (<0.5)
--- NOTE | 2024-02-08 18:10 | ED_ITS ---
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 History is obtained with help of son at bedside. Son states that patient and her baseline is alert, oriented, capable of doing all ADLs. Throughout these episodes of confusion the patient will have difficulty with common everyday tasks such as putting her seatbelt on or operating the emblem maker. They saw her primary care doctor 3 days prior, out of concern that she may have a urinary tract infection. At that time patient's urine was negative for infection and she was instructed to come to the emergency department for evaluation. Son states that in October patient's tumor markers were ?low?, next follow up in February with oncology. On Anticoagulants: No Related Data Home Medications Medication Instructions Recorded Confirmed fluoxetine 20 mg capsule 20 mg PO DAILY 02/05/24 02/05/24 Previous Rx's Medication Instructions Recorded disabled parking #1 ea 09/17/23 alprazolam 0.5 mg tablet 0.5 mg PO BID PRN anxiety #30 tabs 01/07/24 dextroamphetamine-amphetamine 10 10 mg PO BID #60 tabs 01/07/24 mg tablet (Adderall) Allergies Allergy/AdvReac Type Severity Reaction Status Date / Time atomoxetine Allergy Verified 02/05/24 14:59 Review of Systems Review of Systems Narrative: See HPI Hematologic/Lymphatic On Anticoagulants: No Patient History Medical History Acute hypoxemic respiratory failure Small bowel obstruction 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 Advanced directives, counseling/discussion Osteopenia Medicare annual wellness visit, initial Acute respiratory failure with hypoxia Empyema Exudative pleural effusion History of sepsis Family history of psychiatric disorder Chronic headaches History of osteopenia History of osteomyelitis as a child History of neutropenia Tinnitus Cataract Urinary incontinence Fecal incontinence Hemorrhoids Thyroid nodule Surgical History History of hemorrhoidectomy Family History Father Alzheimers disease Mother COPD (chronic obstructive pulmonary disease) Sister Mental health problem Grandmother Mental health problem Social History marital status: details: She was in 1992 after her of prostate cancer. number of children: 1 household members: children pets and animals: Yes (3/dogs, 4/cats, 2/turtles) education level: master's degree occupational status: employed [employer]/holiness: Hindu travel history: other leisure activities: other seatbelt use: always water heater temp set < 120 deg: Yes working smoke detector in home: Yes fire extinguisher in home: Yes carbon monox detector in home: Yes firearms in home: No do you feel safe at home: No (When I leave home in different locations.) Smoking Status: Never smoker alcohol intake: current substance use type: amphetamines and prescription drug during the past year weight has: remained stable well-balanced diet: about half the time daily servings fruits/ve-4 caffeine: Yes (Rare/ 2 per month (soda), caffeine 2+ drinks per day) eating out: other Type(s) of exercise: walking frequency: other duration: 15-30 minutes/day additional social history: Lives by the [employer] walk and nafisa dogs when feeling well. Smoking Status: Never smoker alcohol intake frequency: holidays/special occasions only Substance Use Type: does not use Exam Initial Vital Signs Initial Vital Signs: Vital Signs Temperature 98.8 F 02/08/24 15:25 Pulse Rate 100 H 02/08/24 15:25 Respiratory Rate 18 02/08/24 15:25 Blood Pressure 144/65 H 02/08/24 15:25 Pulse Oximetry 99 02/08/24 15:25 Oxygen Delivery Method Room Air 02/08/24 15:25 Const: Awake, alert, no acute distress, nontoxic appearing Cardiac: regular rate, regular rhythm RESP: unlabored, clear bilaterally, no wheezing GI: Soft, nontender, nondistended, no rebound, no guarding MSK: Atraumatic, full range of motion, pulses equal Skin: Warm, Dry, intact, no rashes Neuro: AO x2, CN II-XII grossly intact, moves all extremities Course Orders Ordered: Dexamethasone (Dexamethasone 4 Mg/Ml Vial) 4 mg IV Q4H [facility] Last Admin: 02/09/24 04:27 Dose: 4 mg Documented By: Admin: 02/09/24 00:29 Dose: 4 mg Documented By: BAIRON Levetiracetam 500 mg/ Sodium (Chloride) 105 mls @ 420 mls/hr IV BID FLORENTIN Discontinued Medications Dexamethasone (Dexamethasone 10 Mg/Ml Vial) 10 mg IV NOW ONE Stop: 02/08/24 18:10 Last Admin: 02/08/24 19:22 Dose: 10 mg Documented By: BAIRON Dexamethasone (Dexamethasone 4 Mg/Ml Vial) 4 mg IV Q4H [facility] Last Admin: 02/08/24 21:07 Dose: Not Given Documented By: Levetiracetam 500 mg/ Sodium (Chloride) 105 mls @ 420 mls/hr IV NOW ONE Stop: 02/08/24 20:44 Last Infusion: 02/08/24 21:38 Dose: Infused Documented By: Admin: 02/08/24 20:53 Dose: 420 mls/hr Documented By: Vital Signs Vital signs: Vital Signs - 8 hr 02/09/24 01:03 Pulse Rate 68 Respiratory Rate 15 Blood Pressure 118/57 L Pulse Oximetry 100 Oxygen Delivery Method Room Air MDM - Neuro Symptoms/Deficit Differential Diagnosis Differential diagnosis: Likely delirium, subarachnoid hemorrhage and peripheral neuropathy Lab Data 02/08/24 16:30 02/08/24 16:30 Labs: Lab Results 02/08/24 02/08/24 02/08/24 Range/Units 16:30 19:02 19:22 WBC 4.9 (4.5-11.0) X10^3/uL RBC 4.49 (4.0-5.2) X10^6/uL Hgb 13.0 (12.0-16.0) g/dL Hct 38.4 (36-46) % MCV 85.6 (80-100) fL MCH 28.9 (26-34) PG MCHC 33.7 (30-36) % RDW 16.8 H (11.6-14.8) % Plt Count 254 (150-400) X10^3/uL Neut % (Auto) 56.2 (50-75) % Lymph % (Auto) 31.0 (25-40) % [place] % (Auto) 11.8 (3-14) % Eos % (Auto) 0.3 L (2-4) % Baso % (Auto) 0.7 (0-2) % Neut # (Auto) 2800 (0191-0150) /uL Lymph # (Auto) 1500 (4053-0908) /uL [place] # (Auto) 600 (0-900) /uL Eos # (Auto) 0 (0-450) /uL Baso # (Auto) 0 (0-100) /uL Sodium 137 (137-145) mmol/L Potassium 3.5 (3.4-5.1) mmol/L Chloride 104 (98-107) mmol/L Carbon Dioxide 28 (22-32) mmol/L BUN 13 (7-17) mg/dL Creatinine 0.52 (0.52-1.04) mg/dL Estimated GFR > 60 (>60) mL/min BUN/Creatinine Ratio 25.0 H (6-22) Glucose 164 H (80-110) mg/dL Lactate 2.1 0.9 (0.7-2.1) mmol/L Calcium 9.5 (8.4-10.2) mg/dL Total Bilirubin 0.6 (0.2-1.3) mg/dL AST 31 (14-36) IU/L ALT 21 (<35) IU/L Alkaline Phosphatase 58 (38-126) U/L Total Creatine Kinase 90 (30-135) U/L Troponin I < 0.012 (0.01-0.034) ng/mL Total Protein 7.7 (6.3-8.2) g/dL Albumin 4.2 (3.5-5.0) g/dL Globulin 3.5 (1.7-4.1) g/dL Albumin/Globulin Ratio 1.2 (1.0-2.8) Procalcitonin < 0.03 (<0.5) ng/mL SARS-CoV-2 (PCR) Negative (Negative) Influenza A (RT-PCR) Flu a negative (NEGATIVE) Influenza B (RT-PCR) Flu b negative (NEGATIVE) RSV (PCR) Negative (Negative) Imaging Data CT scan - head: Radiologist's Impression: PROCEDURE: CT HEAD/BRAIN WO CON INDICATIONS: confusion with hx cancer TECHNIQUE: Noncontrast 4.5 mm thick angled axial sections acquired from the foramen magnum to the vertex, with coronal and sagittal reformats. For radiation dose reduction, the following was used: automated exposure control, adjustment of mA and/or kV according to patient size. COMPARISON: None. FINDINGS: Image quality: Diagnostic. CSF spaces: Basal cisterns are patent. No extra-axial fluid collections. Brain: There is cerebral volume loss for age, with resultant ventricular and sulcal prominence. There are periventricular and deep white matter chronic small vessel ischemic changes. There is intracranial internal carotid artery atherosclerosis. There is appearance of low-attenuation within the posterior right parietal occipital lobe with effacement of the temporal horn of left lateral ventricle. There is an ill- defined appearance of low-attenuation with slight hyperdense periphery in the left frontal lobe in the left para midline location on series 2, image 27. There is also a masslike appearance of relative hyperintensity in the posterior left occipital lobe measuring 2.7 cm on series 2, image 18. Skull and face: Calvarium and visualized facial bones appear intact, without suspicious lesions. Sinuses: Visualized sinuses and mastoids are clear. IMPRESSION: Appearance of vasogenic edema within the left posterior parietal occipital lobe with masslike appearance in the left occipital lobe. In addition, masslike appearance is also present in the left frontal lobe. While there is no left right midline shift, there is mild effacement of the temporal horn of the left lateral ventricle. Overall appearance is concerning for metastatic disease given history of colon cancer. MRI with without contrast is recommended for further evaluation. Dictated by: Analilia Guevara M.D. on 02/08/2024 at 16:08 Approved by: Analilia Guevara M.D. on 02/08/2024 at 16:19 PROCEDURE: MR HEAD/BRAIN WO/W CON INDICATIONS: ABNORMAL HEAD CT/EVAL MASS TECHNIQUE: Noncontrast axial T1 spin echo, axial T2 fast spin echo, sagittal and axial FLAIR, coronal T2 fast spin echo, axial gradient echo, axial diffusion and ADC through the brain. After the administration of contrast, axial and coronal and sagittal T1 spin echo with fat saturation through the brain. COMPARISON: [facility], CT, CT HEAD/BRAIN WO CON, 02/08/2024, 15:52. FINDINGS: Image quality: Excellent. CSF spaces: Basal cisterns are patent. No extra-axial fluid collections. Ventricles are normal in size and shape. Brain: There is a rim enhancing mass seen involving the left occipital lobe, measuring 34 x 29 x 33 mm. There is relatively prominent surrounding edema seen. There is a similar appearing mass seen involving the medial aspect of the left frontal lobe, measuring 15 x 14 x 14 mm. Moderate surrounding edema is seen. No midline shift. There is cerebral volume loss for age. There is periventricular white matter chronic small vessel ischemic change. The brainstem appears normal. Diffusion-weighted images demonstrate no acute infarct. No chronic ischemic insults. Normal intravascular flow voids are present. Skull and face: Calvarial marrow is normal in signal. Orbits appear normal. Note is made of bilateral lens replacements. Sinuses: Sinuses and mastoids appear clear. IMPRESSION: 2 enhancing left-sided masses are seen, with the largest measuring up to 34 mm. There is moderate surrounding edema. These represent metastatic disease until proven otherwise. Dictated by: Daron Aguillon M.D. on 02/08/2024 at 18:20 Approved by: Daron Aguillon M.D. on 02/08/2024 at 18:23 [facility] Narrative Medical decision making narrative: Nontoxic patient presenting for rather sudden confusion that waxes and wanes. Patient is currently alert and oriented to time and place, she does have brief episodes of confusion with inappropriate responses to questions. Otherwise no deficits noted. CT noncontrast of the brain shows areas of edema concerning for underlying lesions and MRI with and without contrast ordered. MRI department's states that they can take patient today. MRI shows two left-sided lesions with surrounding vasogenic edema. Call placed to Neurosurgery for consult. 10 mg IV Decadron ordered for the edema Discussed case with Dr. Monroe of on-call neurosurgery. He recommends transfer to [facility] for operative management of the lesions. Discussed with patient and son at bedside, they are in agreement to transfer at this time. Final dose of Keppra and Decadron given to patient prior to transport Discharge Plan Departure Patient Disposition: 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 fluoxetine 20 mg capsule 20 mg PO DAILY Referrals: Arie Jonas ARNP [Primary Care Provider] -
[2024-02-08 18:21] LABS: Reflexed Lactate in 2 Hours Y
[2024-02-08] MEDS: DEXAMETHASONE 10 MG/ML VIAL IV (19:22)
[2024-02-08 19:59] LABS: Lactate 2HR (Lactic Acid Rflx) 0.9 mmol/L (0.7-2.1)
[2024-02-08] MEDS: levETIRAcetam 500 MG in SODIUM CHLORIDE 0.9% 100 ML 420 MG IV (20:53)
--- NOTE | 2024-02-08 21:18 | PC.NURSE ---
Pt uses a cane for ambulation. However, carries cane it as more of a safety item.
[2024-02-08 21:56] LABS: Influenza A - CEPHEID Flu A NEGATIVE (NEGATIVE); Influenza B - CEPHEID Flu B NEGATIVE (NEGATIVE); Respiratory Syncytial Virus Negative (Negative)
[2024-02-08 22:01] LABS: COVID-19 CEPHEID 4-PLEX PCR Negative (Negative)
[2024-02-09] MEDS: DEXAMETHASONE 4 MG/ML VIAL IV ×3 (00:29→07:00)
[2024-02-09 01:03] VITALS: BP 118/57; PULSE 68; RESP 15; O2SAT 100
--- NOTE | 2024-02-09 05:54 | PC.NURSE ---
Due to increase confusion did not wake pt up at this time. Allowed pt to sleep.
--- NOTE | 2024-02-09 05:55 | PC.NURSE ---
Pt continues to be confused about why she is still here and not at the other hospital. It has been explained to pt numerous times, but it is hard for pt to recall. At this time we will continue to monitor at treat pt until she is transferred to . Pt is currently sleeping and has maybe had 2 hours of sleep this entire shift.
[2024-02-09] MEDS: levETIRAcetam 500 MG in SODIUM CHLORIDE 0.9% 100 ML 420 MG IV (07:01)
[2024-02-09 07:06] VITALS: BP 128/63; PULSE 96; RESP 14; TEMP 36.4; O2SAT 97
== END 2024-02-09 07:25 | disposition short-term general hospital (02) ==
PROVIDERS: Emergency Medicine; Emergency Provider Emergency Medicine; PCP Registered Nurse Diabetes Educator
DX: C79.31 Secondary malignant neoplasm of brain (principal); R41.0 Disorientation, unspecified; Z20.822 Contact with and (suspected) exposure to COVID-19
CPT/HCPCS: 0241U; 36415; 70450; 70553; 71045; 80053; 82550; 83605; 84145; 84484; 85025; 87040; 93005; 93010; 96365; 96366; 96375; 96376; 99284; A9579; J1100; J1953

== ENCOUNTER → 2024-02-29 15:01 | Outpatient (CLI) | payer MEDICARE, OTHER, SELFPAY ==
[2024-02-04 14:17] VITALS: BMI 20.5
[2024-02-29 16:11] LABS: Appearance Urine UA TURBID; Bilirubin Urine UA NEGATIVE (NEGATIVE); Color Urine UA RED; Glucose Urine UA NEGATIVE (Negative); Ketones Urine UA NEGATIVE (NEGATIVE); Leukocyte Esterase Urine UA NEGATIVE (NEGATIVE); Nitrite Urine UA NEGATIVE (Negative); Occult Blood Urine UA 3+ (Negative); Protein Urine UA 3+ (Negative); Specific Gravity Urine UA 1.025 (1.000-1.035); Urobilinogen Urine UA 0.2 E.U./dL (0.2)
[2024-02-29 16:14] LABS: Bacteria Urine Few (2-10); Culture Indicated Urine Cult Not Indicated; Mucus Urine 1+ (Negative); RBC Urine >100/HPF (0-5/HPF); Squamous Epithelial Cell Urine 0-1 /HPF (0-5/HPF); Urine Volume 10mL (spun); WBC Urine 0-1/HPF (0-5/HPF)
== END ==
PROVIDERS: PCP Registered Nurse Diabetes Educator; Visit Provider Physician Assistant
DX: R31.9 Hematuria, unspecified (principal)
CPT/HCPCS: 81001; 87086

== ENCOUNTER 2024-02-29 15:14 | Emergency (ER) | payer MEDICARE, OTHER, SELFPAY ==
[2024-02-04 14:17] VITALS: BMI 20.5
[2024-02-29 15:17] VITALS: BP 123/71; PULSE 76; RESP 16; TEMP 37.2; O2SAT 99; BMI 20.2
--- NOTE | 2024-02-29 15:36 | ED_ITS ---
HPI - Female Genitourinary General Chief complaint: Urogenital-Female Stated complaint: blood in urine/[facility] Time Seen by Provider: 02/29/24 15:23 Source: patient, family and old records reviewed Mode of arrival: Ambulatory History of Present Illness HPI Narrative: This is an 78-year-old female with known history metastatic colon cancer with metastatic lesions and had recent resection of the brain metastases. Patient presents today with complaint of hematuria that is started on Sunday, 2 days ago patient was seen by primary care did not resolve so they went to the walk-in clinic today who was told to come here. They note clots have been a little bit larger. Patient has not had any fevers. No nausea or vomiting, no abdominal back or flank pain. Patient has had normal bowel movements with no black or bloody stools. She has not had hematuria in the past. She states it has not from the vagina. She does have some history of incontinence denies any dysuria urgency or frequency that is new. She states she does urinate frequently normally but that has been longstanding. Patient is not on any anticoagulants. She is on antiseizure medication as well as Prozac as her only current medications. She has not started treatment for her colon cancer they are waiting for her to heal from her surgery and then we will start treatment. Patient and her family at bedside note that she has a little bit of persistent memory issues but has been healing well from her surgery and has not had any changes to mentation. She has not have any new weakness or difficulty movement and her only complaint is hematuria. Patient has not allergy to atomoxetine. No tobacco, alcohol or recreational drugs. Patient follows with Dr. Montoya for oncology at [facility]. Related Data Home Medications Medication Instructions Recorded Confirmed fluoxetine 20 mg capsule 20 mg PO DAILY 02/05/24 03/05/24 Previous Rx's Medication Instructions Recorded disabled parking #1 ea 09/17/23 alprazolam 0.5 mg tablet 0.5 mg PO BID PRN anxiety #30 tabs 01/07/24 cephalexin 500 mg capsule 500 mg PO BID 10 days #20 caps 02/29/24 mupirocin 2 % topical ointment 1 applic topical TID #22 grams 03/05/24 Allergies Allergy/AdvReac Type Severity Reaction Status Date / Time atomoxetine Allergy Verified 03/05/24 14:10 Review of Systems Review of Systems ROS Unobtainable: All systems reviewed & are unremarkable except as noted in HPI and below Patient History Medical History Acute hypoxemic respiratory failure Small bowel obstruction 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 Advanced directives, counseling/discussion Osteopenia Medicare annual wellness visit, initial Acute respiratory failure with hypoxia Empyema Exudative pleural effusion History of sepsis Family history of psychiatric disorder Chronic headaches History of osteopenia History of osteomyelitis as a child History of neutropenia Tinnitus Cataract Urinary incontinence Fecal incontinence Hemorrhoids Thyroid nodule Surgical History History of hemorrhoidectomy Family History Father Alzheimers disease Mother COPD (chronic obstructive pulmonary disease) Sister Mental health problem Grandmother Mental health problem alcohol intake frequency: holidays/special occasions only Substance Use Type: does not use Exam Narrative Exam Narrative: GENERAL: Alert and oriented x three, thin elderly female in mild distress. HEENT: Head normocephalic, atraumatic, EOMI, pupils reactive, face symmetric, moist mucous membranes NECK: Supple, full range of motion CARDIOVASCULAR: Regular rate and rhythm without murmurs, rubs or gallops. RESPIRATORY: Breath sounds equal bilaterally, no wheezes rales or rhonchi. ABDOMEN: Soft, nontender. Nondistended. Normoactive bowel sounds all 4 quadrants. No guarding or rebound, rigidity, no mass : No CVA tenderness EXTREMITIES: Normal range of motion, no clubbing or edema. Neurovascularly intact NEUROLOGICAL: Cranial nerves II through XII grossly intact. Moving all extremities SKIN: Warm, dry, no petechiae, no rashes or lesions. Initial Vital Signs Initial Vital Signs: Vital Signs Temperature 98.9 F 02/29/24 15:17 Pulse Rate 76 02/29/24 15:17 Respiratory Rate 16 02/29/24 15:17 Blood Pressure 123/71 02/29/24 15:17 Pulse Oximetry 99 02/29/24 15:17 Oxygen Delivery Method Room Air 02/29/24 15:17 Course Orders Ordered: Discontinued Medications Cephalexin HCl (Cephalexin 250 Mg Capsule) 500 mg PO NOW ONE Stop: 02/29/24 15:54 Last Admin: 02/29/24 16:46 Dose: 500 mg Documented By: NL Vital Signs Vital signs: Vital Signs - 8 hr 02/29/24 15:17 Temperature 98.9 F Pulse Rate 76 Respiratory Rate 16 Blood Pressure 123/71 Pulse Oximetry 99 Oxygen Delivery Method Room Air MDM - Female Genitourinary Lab Data 02/29/24 16:17 02/29/24 16:17 Labs: Lab Results 02/29/24 Range/Units 16:17 WBC 5.6 (4.5-11.0) X10^3/uL RBC 3.88 L (4.0-5.2) X10^6/uL Hgb 11.3 L (12.0-16.0) g/dL Hct 34.1 L (36-46) % MCV 87.9 (80-100) fL MCH 29.0 (26-34) PG MCHC 33.1 (30-36) % RDW 16.8 H (11.6-14.8) % Plt Count 255 (150-400) X10^3/uL Neut % (Auto) 65.3 (50-75) % Lymph % (Auto) 23.5 L (25-40) % [place] % (Auto) 9.2 (3-14) % Eos % (Auto) 1.2 L (2-4) % Baso % (Auto) 0.8 (0-2) % Neut # (Auto) 3700 (8661-4684) /uL Lymph # (Auto) 1300 (9479-9167) /uL [place] # (Auto) 500 (0-900) /uL Eos # (Auto) 100 (0-450) /uL Baso # (Auto) 0 (0-100) /uL Sodium 139 (137-145) mmol/L Potassium 4.1 (3.4-5.1) mmol/L Chloride 106 (98-107) mmol/L Carbon Dioxide 31 (22-32) mmol/L BUN 11 (7-17) mg/dL Creatinine 0.43 L (0.52-1.04) mg/dL Estimated GFR > 60 (>60) mL/min BUN/Creatinine Ratio 25.6 H (6-22) Glucose 87 (80-110) mg/dL Calcium 8.9 (8.4-10.2) mg/dL Total Bilirubin 0.6 (0.2-1.3) mg/dL AST 41 H (14-36) IU/L ALT 51 H (<35) IU/L Alkaline Phosphatase 118 (38-126) U/L Total Protein 7.2 (6.3-8.2) g/dL Albumin 4.2 (3.5-5.0) g/dL Globulin 3.0 (1.7-4.1) g/dL Albumin/Globulin Ratio 1.4 (1.0-2.8) Lipase 110 (23-300) U/L Imaging Data CT scan - abdomen/pelvis: Radiologist's Impression: Luis Manuel Cameron??78??F??1945 ? Allergy/Adv: atomoxetine Close Abdomen/Pelvis CT (Signed) Idris Dela Cruz - 02/29/24 Brain MRI (Signed) Daron Aguillon - 02/08/[address] (Signed) Analilia Guevara - 02/08/24 Chest X-Ray (Signed) Leoncio Blanca - 02/08/24 Vascular Ultrasound (Signed) Nikita Sherman - 09/08/23 Cystogram (Signed) Idris Dela Cruz - 09/06/23 Telemetry Strips 07/26/23 Chest X-Ray (Signed) Karen Norton - 07/26/23 Abdomen/Pelvis CT (Signed) Balwinder Montiel - 07/26/23 Chest X-Ray (Signed) Karen Norton - 07/26/23 Chest X-Ray (Signed) Karen Norton - 05/15/23 Abdomen X-Ray (Signed) Karen Norton - 05/15/23 Vascular Ultrasound (Signed) Nikita Sherman - 01/04/22 Mammogram Screening (Signed) Tye Pandey - 06/27/19 Mammogram Screening (Signed) Breonna Menendez - 05/31/[address] [address] [address] Scan Report Signed Patient: Luis Manuel Cameron MR#: [id number] : 1945 Acct:[id number] Age/Sex: 78 / F Date of Service: 02/29/24 Loc: ED Accession Number: [id number] Procedure: CT kidney ureter bladder (KUB) Ordering Provider: Kaycee Louis D.O. PROCEDURE: CT KIDNEY URETER BLADDER (KUB) INDICATIONS: hematuria, +uti, no pain, known colon ca w/ mets TECHNIQUE: Axial sections were acquired from the lung bases to the pubic symphysis. Coronal and sagittal reformats were performed. For radiation dose reduction, the following was used: automated exposure control, adjustment of mA and/or kV according to patient size. COMPARISON: None. FINDINGS: Image quality: Diagnostic. Lower Chest: No significant findings. URINARY: Right Kidney: No stones or hydronephrosis. Right Ureter: No hydroureter. Left Kidney: No stones or hydronephrosis. Left Ureter: No hydroureter. Bladder: Focal wall thickening of the superior bladder wall measuring 2.1 x 1.3 centimeter. ABDOMEN: Liver: No contour-deforming solid mass. Gallbladder: No radiopaque gallstones or wall thickening. Biliary ducts: No biliary dilation. Pancreas: No ductal dilation. Spleen: Size is within normal limits. Adrenal Glands: No adrenal nodules. Stomach and Bowel: Normal colonic caliber, without significant wall thickening. Prior partial colectomy. Peritoneum: No abnormal intraperitoneal fluid. No free air. Ventral Wall: No hernia. Abdominal Nodes: No enlarged retroperitoneal or mesenteric lymph nodes. Vessels: Aorta and inferior vena cava are normal in size. PELVIS: Pelvic Organs: Unremarkable. Pelvic Nodes: Unremarkable. Miscellaneous: No inguinal hernias are seen. Bones: Mild concave compression deformity of the L4 vertebral body, with 2 millimeter endplate retropulsion. IMPRESSION: No obstructing stones or hydronephrosis. Focal wall thickening of the superior bladder wall measuring 2.1 x 1.3 centimeters, concerning for transitional cell carcinoma. Recommend urology referral. Mild concave compression deformity of the L4 vertebral body, with 2 millimeter endplate retropulsion. Dictated by: Idris Dela Cruz M.D. on 02/29/2024 at 17:00 Approved by: Idris Dela Cruz M.D. on 02/29/2024 at 17:03 [facility] Narrative Medical decision making narrative: 78-year-old female known metastatic colon cancer with painless hematuria. Patient does have a nitrite positive urine likely has UTI but does have risk factors for other issues with known metastatic colon cancer. After discussion patient family we will pursue labs and CT imaging to evaluate for any renal or bladder involvement of cancer. Labs labs show white count of 5.6 11.3 hemoglobin, patient is down from February 07 but has had a brain resection in the interim. Patient's platelets are 225. Electrolytes are appropriate renal function is normal at 0.43, AST ALT are 41 and [address] KUB no obstructing stones or hydro, focal wall thickening superior bladder wall 2.1 x 1.3 cm concerning for transitional cell carcinoma recommend urology referral mild concave compression deformity L4 vertebral body with 2 mm endplate retropulsion. Urine from walk-in clinic shows 300+ protein 1+ ketones 200 blood positive nitrates 1+ bili 3+ leukocyte esterase. Urine was cultured. Patient was given a dose of oral Keflex. Reviewed findings with her and her son. Patient is ambulating in the door with her coat on ready to leave. Plan for Urology follow-up but also antibiotics. Asked that they share this information as well with your oncologist as they may already be aware of these changes. Reviewed patient's findings, need for follow-up, labs and urinalysis. Discharge Plan Departure Patient Disposition: Home Clinical Impression: Hematuria, UTI (urinary tract infection), Bladder wall thickening, Closed compression fracture of L4 vertebra Activity Restrictions/Additional Instructions: Your imaging today does show some focal wall thickening of the bladder that is concerning for possible carcinoma or malignancy. This is usually confirmed by cystoscopy with Urology. Contact is included to call and set up follow-up. These changes can cause bleeding but your urine also shows signs of infection. Please take oral antibiotic until completed. [facility] [place]. Incidentally you do have an L4 compression fracture with a small piece retropulsed 2 mm. Please return for fevers new abdominal back flank pain, lightheadedness, increasing bleeding with chest pain, shortness of breath, difficulty with urination, vomiting or other new or concerning changes. Prescriptions: New cephalexin 500 mg capsule 500 mg PO BID 10 Days Qty: 20 0RF No Action alprazolam 0.5 mg tablet 0.5 mg PO BID MDD 1MG PRN (Reason: anxiety) Qty: 30 0RF (DME) disabled parking See Rx Instructions .ROUTE .MEDSUPPLY Qty: 1 0RF Rx Instructions: I find this patient to be medically disabled and qualified for Disabled Parking as indicated, and signed, on the Accompanying Disabled Parking Application for individuals. fluoxetine 20 mg capsule 20 mg PO DAILY mupirocin 2 % ointment 1 applic topical TID Qty: 22 0RF Rx Instructions: for surgical wound on head Referrals: Hank Whitten MD [Physician] - Arie Jonas ARNP [Primary Care Provider] - Stacie Montoya MD [Physician] - Stand Alone Forms: Patient Portal/API
--- NOTE | 2024-02-29 15:52 | DI.CT.S_ITS ---
PROCEDURE: CT KIDNEY URETER BLADDER (KUB) INDICATIONS: hematuria, +uti, no pain, known colon ca w/ mets TECHNIQUE: Axial sections were acquired from the lung bases to the pubic symphysis. Coronal and sagittal reformats were performed. For radiation dose reduction, the following was used: automated exposure control, adjustment of mA and/or kV according to patient size. COMPARISON: None. FINDINGS: Image quality: Diagnostic. Lower Chest: No significant findings. URINARY: Right Kidney: No stones or hydronephrosis. Right Ureter: No hydroureter. Left Kidney: No stones or hydronephrosis. Left Ureter: No hydroureter. Bladder: Focal wall thickening of the superior bladder wall measuring 2.1 x 1.3 centimeter. ABDOMEN: Liver: No contour-deforming solid mass. Gallbladder: No radiopaque gallstones or wall thickening. Biliary ducts: No biliary dilation. Pancreas: No ductal dilation. Spleen: Size is within normal limits. Adrenal Glands: No adrenal nodules. Stomach and Bowel: Normal colonic caliber, without significant wall thickening. Prior partial colectomy. Peritoneum: No abnormal intraperitoneal fluid. No free air. Ventral Wall: No hernia. Abdominal Nodes: No enlarged retroperitoneal or mesenteric lymph nodes. Vessels: Aorta and inferior vena cava are normal in size. PELVIS: Pelvic Organs: Unremarkable. Pelvic Nodes: Unremarkable. Miscellaneous: No inguinal hernias are seen. Bones: Mild concave compression deformity of the L4 vertebral body, with 2 millimeter endplate retropulsion. IMPRESSION: No obstructing stones or hydronephrosis. Focal wall thickening of the superior bladder wall measuring 2.1 x 1.3 centimeters, concerning for transitional cell carcinoma. Recommend urology referral. Mild concave compression deformity of the L4 vertebral body, with 2 millimeter endplate retropulsion. Dictated by: Idris Dela Cruz M.D. on 02/29/2024 at 17:00 Approved by: Idris Dela Cruz M.D. on 02/29/2024 at 17:03
[2024-02-29 16:26] LABS: Add Manual Diff / Slide Review NO; Basophils Absolute Auto 0 /uL (0-100); Basophils Percent Auto 0.8 % (0-2); Eosinophils Absolute Auto 100 /uL (0-450); Eosinophils Percent Auto 1.2 % (2-4); Hematocrit 34.1 % (36-46); Hemoglobin 11.3 g/dL (12.0-16.0); Lymphocytes Absolute Auto 1300 /uL (1100-4500); Lymphocytes Percent Auto 23.5 % (25-40); Mean Corpuscular HGB Conc 33.1 % (30-36); Mean Corpuscular Volume 87.9 fL (80-100); Monocytes Absolute Auto 500 /uL (0-900); Monocytes Percent Auto 9.2 % (3-14); Neutrophils Absolute Auto 3700 /uL (1500-7000); Neutrophils Percent Auto 65.3 % (50-75); Platelet Count 255 X10^3/uL (150-400); Red Blood Cell Count 3.88 X10^6/uL (4.0-5.2); Red Cell Distribution Width 16.8 % (11.6-14.8); White Blood Cell Count 5.6 X10^3/uL (4.5-11.0)
[2024-02-29 16:37] LABS: Alanine Aminotransferase 51 IU/L (<35); Albumin 4.2 g/dL (3.5-5.0); Albumin Globulin Ratio 1.4 (1.0-2.8); Alkaline Phosphatase 118 U/L (38-126); Aspartate Aminotransferase 41 IU/L (14-36); BUN Creatinine Ratio 25.6 (6-22); Bilirubin Total 0.6 mg/dL (0.2-1.3); Blood Urea Nitrogen 11 mg/dL (7-17); Calcium 8.9 mg/dL (8.4-10.2); Carbon Dioxide 31 mmol/L (22-32); Chloride 106 mmol/L (98-107); Estimated Glomerular Filt Rate > 60 mL/min (>60); Glucose 87 mg/dL (80-110); HEMOLYSIS 24 (0-50); Lipase 110 U/L (23-300); Potassium 4.1 mmol/L (3.4-5.1); Sodium 139 mmol/L (137-145); Total Protein 7.2 g/dL (6.3-8.2)
[2024-02-29] MEDS: cephALEXin 250 MG CAPSULE 500 MG PO (16:46)
== END 2024-02-29 19:09 | disposition home or self-care (01) ==
PROVIDERS: Emergency Provider Emergency Medicine; PCP Registered Nurse Diabetes Educator
DX: N39.0 Urinary tract infection, site not specified (principal); R31.9 Hematuria, unspecified; S32.040A Wedge compression fracture of fourth lumbar vertebra, initial encounter for closed fracture; N32.89 Other specified disorders of bladder
CPT/HCPCS: 36415; 74176; 80053; 81001; 83690; 85025; 87086; 99283; 99284

== ENCOUNTER 2024-03-16 13:47 | Emergency (ER) | payer MEDICARE, OTHER, SELFPAY ==
[2024-02-04 14:17] VITALS: BMI 20.5
[2024-03-16 14:11] VITALS: BP 115/58; PULSE 91; RESP 16; TEMP 36.8; O2SAT 97; BMI 20.2
--- NOTE | 2024-03-16 14:37 | DI.RAD.S_ITS ---
PROCEDURE: XR HIP W PEL IF DONE LT 2V INDICATIONS: fall onto hip TECHNIQUE: To views of the hip were acquired. COMPARISON: [facility], CT, CT KIDNEY URETER BLADDER (KUB), 02/29/2024, 16:16. FINDINGS: Bones: Abnormal morphology left femoral neck with a foreshortened neck however it is unchanged from comparison CT dated 02/29/2024. No suspicious bony lesions. The visualized pelvic ring appears intact. Soft tissues: No suspicious soft tissue calcifications or masses. IMPRESSION: Left femoral neck deformity is chronic without acute fracture identified. Dictated by: Hank Mckeon M.D. on 03/16/2024 at 14:09 Approved by: Hank Mckeon M.D. on 03/16/2024 at 14:14
--- NOTE | 2024-03-16 18:25 | PC.NURSE ---
No answer from waiting room at [phone]. Also looked at central waiting area. Call again at 182, pt no seen in waiting room or central waiting area. Pt LWBS at this time.
== END 2024-03-16 18:25 | disposition left against medical advice (07) ==
PROVIDERS: Emergency Provider Emergency Medicine; PCP Registered Nurse Diabetes Educator
DX: M54.50 Low back pain, unspecified (principal); M25.552 Pain in left hip; W01.0XXA Fall on same level from slipping, tripping and stumbling without subsequent striking against object, initial encounter
CPT/HCPCS: 73502; 99281

== ENCOUNTER → 2024-07-03 13:39 | Outpatient (CLI) | payer MEDICARE, OTHER, SELFPAY ==
[2024-02-04 14:17] VITALS: BMI 20.5
--- NOTE | 2024-07-03 | DI.MRI.S_ITS ---
PROCEDURE: MR HEAD/BRAIN WO/W CON INDICATIONS: Secondary malignant neoplasm of brain TECHNIQUE: Noncontrast axial T1 spin echo, axial T2 fast spin echo, sagittal and axial FLAIR, coronal T2 fast spin echo, axial gradient echo, axial diffusion and ADC through the brain. After the administration of contrast, axial and coronal and sagittal T1 spin echo with fat saturation through the brain. COMPARISON: [facility], MR, MR HEAD/BRAIN WO/W CON, 02/08/2024, 18:23. FINDINGS: Image quality: Excellent. CSF spaces: Basal cisterns are patent. No extra-axial fluid collections. Ventricles are normal in size and shape. Brain: There is been interval decrease in size of enhancing parafalcine mass in the left frontal lobe measuring 4 mm on series 4 image 134 compared to 15 mm. The left occipital mass demonstrates interval resection. No definitive enhancement within the resection cavity to suggest recurrent or residual disease. No new areas abnormal enhancement are identified. Vasogenic edema associated with these lesions has markedly decreased compared to prior exam. No midline shift. There is cerebral volume loss for age. There is periventricular white matter chronic small vessel ischemic change. The brainstem appears normal. Diffusion-weighted images demonstrate no acute infarct. No chronic ischemic insults. Normal intravascular flow voids are present. Skull and face: Calvarial marrow is normal in signal. Orbits appear normal. Sinuses: Sinuses and mastoids appear clear. IMPRESSION: Interval resection of left occipital mass without definitive evidence of recurrent or residual disease. Interval decrease in size of left frontal parafalcine mass with also decreased appearance of vasogenic edema. Atrophy and chronic microvascular ischemic changes. Dictated by: Analilia Guevara M.D. on 07/04/2024 at 8:49 Approved by: Analilia Guevara M.D. on 07/04/2024 at 8:52
== END ==
PROVIDERS: PCP Registered Nurse Diabetes Educator; Referring Provider Physician Assistant; Visit Provider Physician Assistant
DX: C79.31 Secondary malignant neoplasm of brain (principal)
CPT/HCPCS: 70553; A9579

== ENCOUNTER → 2024-07-28 11:31 | Outpatient (CLI) | payer MEDICARE, OTHER, SELFPAY ==
[2024-02-04 14:17] VITALS: BMI 20.5
[2024-07-28 13:01] LABS: Add Manual Diff / Slide Review NO; Basophils Absolute Auto 0 /uL (0-100); Basophils Percent Auto 0.7 % (0-2); Eosinophils Absolute Auto 0 /uL (0-450); Eosinophils Percent Auto 0.8 % (2-4); Hematocrit 39.2 % (36-46); Hemoglobin 12.9 g/dL (12.0-16.0); Lymphocytes Absolute Auto 1100 /uL (1100-4500); Lymphocytes Percent Auto 23.8 % (25-40); Mean Corpuscular Volume 84.7 fL (80-100); Monocytes Absolute Auto 500 /uL (0-900); Monocytes Percent Auto 10.5 % (3-14); Neutrophils Absolute Auto 3100 /uL (1500-7000); Neutrophils Percent Auto 64.2 % (50-75); Platelet Count 298 X10^3/uL (150-400); Red Blood Cell Count 4.63 X10^6/uL (4.0-5.2); White Blood Cell Count 4.8 X10^3/uL (4.5-11.0)
[2024-07-28 13:41] LABS: Alanine Aminotransferase 20 IU/L (<35); Albumin 4.5 g/dL (3.5-5.0); Albumin Globulin Ratio 1.4 (1.0-2.8); Alkaline Phosphatase 118 U/L (38-126); Aspartate Aminotransferase 38 IU/L (14-36); BUN Creatinine Ratio 20.6 (6-22); Bilirubin Total 0.7 mg/dL (0.2-1.3); Blood Urea Nitrogen 13 mg/dL (7-17); Carbon Dioxide 30 mmol/L (22-32); Chloride 100 mmol/L (98-107); Estimated Glomerular Filt Rate > 60 mL/min (>60); Globulin 3.2 g/dL (1.7-4.1); Glucose 88 mg/dL (80-110); HEMOLYSIS < 15 (0-50); Sodium 138 mmol/L (137-145); Total Protein 7.7 g/dL (6.3-8.2)
[2024-07-28 13:42] LABS: Potassium 4.3 mmol/L (3.4-5.1)
[2024-07-28 14:37] LABS: Free T4, Direct Thyroxine 1.06 ng/dL (0.78-2.19)
[2024-07-28 14:59] LABS: Appearance Urine UA CLEAR; Bilirubin Urine UA NEGATIVE (NEGATIVE); Color Urine UA YELLOW; Glucose Urine UA NEGATIVE (Negative); Ketones Urine UA NEGATIVE (NEGATIVE); Leukocyte Esterase Urine UA 1+ (NEGATIVE); Nitrite Urine UA NEGATIVE (Negative); Occult Blood Urine UA TRACE-INTACT (Negative); Protein Urine UA NEGATIVE (Negative); Specific Gravity Urine UA 1.015 (1.000-1.035); Urobilinogen Urine UA 0.2 E.U./dL (0.2)
[2024-07-28 15:01] LABS: pH Urine UA 6.5 (4.5-8.0)
[2024-07-28 15:09] LABS: Amorphous Sediment Urine 1+; Bacteria Urine Few (2-10); Culture Indicated Urine Specimen Cultured; RBC Urine 0-1/HPF (0-5/HPF); Squamous Epithelial Cell Urine 5-10 /HPF (0-5/HPF); Transitional Epi Cells Urine 1-5/HPF (0-5/HPF); Urine Volume 10mL (spun); WBC Urine 5-10/HPF (0-5/HPF)
== END ==
PROVIDERS: PCP Registered Nurse Diabetes Educator; Referring Provider Registered Nurse Diabetes Educator; Visit Provider Registered Nurse Diabetes Educator
DX: Z01.818 Encounter for other preprocedural examination (principal); E03.9 Hypothyroidism, unspecified; C18.0 Malignant neoplasm of cecum; C19 Malignant neoplasm of rectosigmoid junction
CPT/HCPCS: 36415; 80053; 81001; 84439; 84443; 85025; 87077; 87086; 87147

== ENCOUNTER → 2024-10-09 12:35 | Outpatient (CLI) | payer MEDICARE, OTHER, SELFPAY ==
[2024-02-04 14:17] VITALS: BMI 20.5
--- NOTE | 2024-10-09 12:36 | DI.MRI.S_ITS ---
PROCEDURE: MR HEAD/BRAIN WO/W CON INDICATIONS: malignant neoplasm of brain TECHNIQUE: Noncontrast axial T1 spin echo, axial T2 fast spin echo, sagittal and axial FLAIR, coronal T2 fast spin echo, axial gradient echo, axial diffusion and ADC through the brain. After the administration of contrast, axial and coronal and sagittal 3D VIBE or T1 spin echo with fat saturation through the brain. COMPARISON: [facility], MR, MR HEAD/BRAIN WO/W CON, 07/03/2024, 14:02. FINDINGS: CSF Spaces: Basal cisterns are patent. No extra-axial fluid collections. Ventricles are normal in size and shape. Brain: Interval resolution left parafalcine mass lesion. The left occipital resection cavity shows linear capsular enhancement without nodularity. Otherwise, and mild atrophy and white matter chronic ischemic change present. No acute infarct. No mass effect. Skull and face: Left occipital craniotomy stable. Sinuses: Sinuses and mastoids appear clear. IMPRESSION: Continued positive response to therapy. Resolution of left frontal small nodule. Left occipital resection cavity shows a linear capsular enhancement. No nodularity. Approved by: Nikita Sherman M.D. on 10/09/2024 at 17:22
== END ==
LOC: MRI 12:36
PROVIDERS: PCP Registered Nurse Diabetes Educator; Referring Provider Internal Medicine Hematology & Oncology; Visit Provider Internal Medicine Hematology & Oncology
DX: C79.31 Secondary malignant neoplasm of brain (principal); C18.9 Malignant neoplasm of colon, unspecified; Z79.899 Other long term (current) drug therapy; C19 Malignant neoplasm of rectosigmoid junction
CPT/HCPCS: 70553; A9579

== ENCOUNTER → 2025-01-13 17:01 | Outpatient (CLI) | payer MEDICARE, OTHER, SELFPAY ==
[2024-02-04 14:17] VITALS: BMI 20.5
--- NOTE | 2025-01-13 17:04 | DI.MRI.S_ITS ---
PROCEDURE: MR HEAD/BRAIN WO/W CON INDICATIONS: brain tumor removal follow up TECHNIQUE: Noncontrast axial T1 spin echo, axial T2 fast spin echo, sagittal and axial FLAIR, coronal T2 fast spin echo, axial gradient echo, axial diffusion and ADC through the brain. After the administration of contrast, axial and coronal and sagittal T1 spin echo with fat saturation through the brain. COMPARISON: [facility], MR, MR HEAD/BRAIN WO/W CON, 07/03/2024, 14:02. [facility], [place], PET NECK TO MID THIGH, 06/03/2024, 10:19. [facility], MR, MR HEAD/BRAIN WO/W CON, 02/08/2024, 18:23. CT, CT HEAD/BRAIN WO CON, 02/08/2024, 15:52. [facility], MR, MR HEAD BRAIN WO W CON, 10/09/2024, 12:50. FINDINGS: Image quality: Excellent. CSF spaces: Basal cisterns are patent. No extra-axial fluid collections. Ventricles are normal in size and shape. Brain: Postsurgical changes demonstrating left occipital resection cavity is stable. There is mild appearance of enhancement the linear capsule without areas of nodularity. Surrounding FLAIR signal is stable. No new areas of abnormal enhancement or mass lesion are identified. No midline shift. No intracranial bleeds or masses. No abnormal intracranial enhancement. There is cerebral volume loss for age. There is periventricular white matter chronic small vessel ischemic change. The brainstem appears normal. Diffusion-weighted images demonstrate no acute infarct. No chronic ischemic insults. Normal intravascular flow voids are present. Skull and face: Calvarial marrow is normal in signal. Orbits appear normal. Sinuses: Sinuses and mastoids appear clear. IMPRESSION: Stable interval exam compared to 10/09/2024 demonstrating no residual or recurrent disease. Dictated by: Analilia Guevara M.D. on 01/14/2025 at 15:47 Approved by: Analilia Guevara M.D. on 01/14/2025 at 15:52
== END ==
PROVIDERS: PCP Registered Nurse Diabetes Educator; Referring Provider Physician Assistant; Visit Provider Physician Assistant
DX: C79.31 Secondary malignant neoplasm of brain (principal); Z85.038 Personal history of other malignant neoplasm of large intestine
CPT/HCPCS: 70553; A9579

== ENCOUNTER → 2025-03-31 12:57 | Outpatient (CLI) | payer MEDICARE, OTHER, SELFPAY ==
[2024-02-04 14:17] VITALS: BMI 20.5
--- NOTE | 2025-03-31 12:59 | DI.MRI.S_ITS ---
PROCEDURE: MR HEAD/BRAIN WO/W CON INDICATIONS: ASSESS STABILITY TECHNIQUE: Noncontrast axial T1 spin echo, axial T2 fast spin echo, sagittal and axial FLAIR, coronal T2 fast spin echo, axial gradient echo, axial diffusion and ADC through the brain. After the administration of contrast, axial and coronal and sagittal T1 spin echo with fat saturation through the brain. COMPARISON: [facility], MR, MR HEAD/BRAIN WO/W CON, 01/13/2025, 17:12. [facility], MR, MR HEAD/BRAIN WO/W CON, 07/03/2024, 14:02. [facility], MR, MR HEAD BRAIN WO W CON, 10/09/2024, 12:50. FINDINGS: Image quality: Excellent. CSF spaces: Basal cisterns are patent. No extra-axial fluid collections. Ventricles are normal in size and shape. Brain: Focal volume loss and encephalomalacia can be seen involving the posterior medial aspect of the left occipital lobe. No masses or masslike enhancement can be seen. There is a mild degree of generalized increased enhancement seen along the margin of this region, as on series 13, image 60 and on series 15, image 22, which is similar to the prior examination. No masses or abnormal enhancement can be seen elsewhere. No midline shift. There is cerebral volume loss for age. There is periventricular white matter chronic small vessel ischemic change. The brainstem appears normal. Diffusion-weighted images demonstrate no acute infarct. No chronic ischemic insults. Normal intravascular flow voids are present. Skull and face: Calvarial marrow is normal in signal. Orbits appear normal. Note is made of bilateral lens replacements. Sinuses: Sinuses and mastoids appear clear. IMPRESSION: Stable study compared to the prior, with focal volume loss and encephalomalacia seen involving the posterior medial aspect of the left occipital lobe, without masslike enhancement. There is stable generalized enhancement seen along the margin of this focus, which is most likely related to posttreatment changes. Dictated by: Daron Aguillon M.D. on 03/31/2025 at 13:40 Approved by: Daron Aguillon M.D. on 03/31/2025 at 13:43
== END ==
PROVIDERS: PCP Registered Nurse Diabetes Educator; Referring Provider Physician Assistant; Visit Provider Physician Assistant
DX: C79.31 Secondary malignant neoplasm of brain (principal); G93.89 Other specified disorders of brain
CPT/HCPCS: 70553; A9579

== ENCOUNTER → 2025-08-14 12:52 | Outpatient (CLI) | payer MEDICARE, OTHER, SELFPAY ==
[2024-02-04 14:17] VITALS: BMI 20.5
--- NOTE | 2025-08-14 12:54 | DI.MRI.S_ITS ---
PROCEDURE: MR HEAD/BRAIN WO/W CON INDICATIONS: BRAIN CANCER TECHNIQUE: Noncontrast axial T1 spin echo, axial T2 fast spin echo, sagittal and axial FLAIR, coronal T2 fast spin echo, axial gradient echo, axial diffusion and ADC through the brain. After the administration of contrast, axial and coronal and sagittal T1 spin echo with fat saturation through the brain. COMPARISON: [facility], , MR HEAD/BRAIN WO/W CON, 02/08/2024, 18:23. [facility], MR, MR HEAD/BRAIN WO/W CON, 01/13/2025, 17:12. [facility], MR, MR HEAD BRAIN WO W CON, 10/09/2024, 12:50. [facility], MR, MR HEAD/BRAIN WO/W CON, 07/03/2024, 14:02. [facility], MR, MR HEAD/BRAIN WO/W CON, 03/31/2025, 13:36. FINDINGS: Image quality: Excellent. CSF spaces: Basal cisterns are patent. No extra-axial fluid collections. Ventricles are normal in size and shape. Brain: Prior resection changes can be seen involving the left occipital lobe. Within this region, there is volume loss and encephalomalacia. There is a mild degree of curvilinear enhancement seen along the margin of the brain at this site, which is improved compared to the prior. There is a minimal degree of hemosiderin deposition seen within the postoperative bed. No new masses or abnormal enhancement can be seen elsewhere. No midline shift. There is periventricular white matter chronic small vessel ischemic change. The brainstem appears normal. Diffusion-weighted images demonstrate no acute infarct. No chronic ischemic insults. Normal intravascular flow voids are present. Skull and face: Calvarial marrow is normal in signal. Orbits appear normal. Note is made of bilateral lens replacements. Sinuses: Sinuses and mastoids appear clear. IMPRESSION: Prior left occipital lobe resection change, with a mild degree of enhancement along the margin of the resection cavity, which has improved compared to the prior brain MRI. No new masses or areas of abnormal enhancement can be seen. Dictated by: Daron Aguillon M.D. on 08/14/2025 at 15:40 Approved by: Daron Aguillon M.D. on 08/14/2025 at 15:43
== END ==
PROVIDERS: PCP Registered Nurse Diabetes Educator; Referring Provider Physician Assistant; Visit Provider Physician Assistant
DX: C79.31 Secondary malignant neoplasm of brain (principal)
CPT/HCPCS: 70553; A9579